=== PATIENT | male | born 1945 | race Caucasian/White ===

== ENCOUNTER 2016-07-26 14:55 | Emergency (ER) | payer MEDICARE, BC ==
[2016-07-26 15:39] VITALS: BP 166/50
[2016-07-26] MEDS ORDERED: Cyclobenzaprine 10 MG Tab PO ONE (15:56)
[2016-07-26] MEDS ORDERED: Acetaminophen 325 MG Tab PO ONE (15:56)
--- NOTE | 2016-07-26 16:12 | EDM.PDOC ---
ED HPI LOWER BACK PAIN/INJURY - General Chief Complaint: Back Pain or Injury Stated Complaint: back pain Time Seen by Provider: 07/26/16 15:34 Source of Information: Reports: Patient History Limitations: Reports: No limitations - History of Present Illness INITIAL COMMENTS - FREE TEXT/NARRATIVE: Patient sent to ER from PT today with intractable back pain. Pt tells me the past three days he has been having worsening back pain and tingling down both legs from proximal thigh down. No numbness. He started PT 5 days ago and today was his second visit. PT was started because of gradually worsening chronic pain but two days after the first PT visit it became significantly worse. Right now in ER he is actually doing much better than 45 minutes ago in PT. He did get E-stim today he says. Patient tells me he has been told he can' t have an MRI because of his bilat hip replacements, coronary artery stents (12 yrs ago), renal artery stents (11 yrs ago) and iliac artery stents (5 yrs ago). PT was thinking he could have a CT. Pt tells me he had lumbar xrays last week in clinic that only saw lots of arthritis and recommended CT if PT didn't help. We talked to the radiologist today who says that most of these modern stents are compatible with MRI and he would much prefer MRI to CT as he can remove the distortion the hip prostheses would affect but they would obscure the CT view of the lumbar and sacral spine. We will check the type of stents the pt has to confirm compatibility. 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 He says the L4/L5 disk was blown out. He has had claudication/ blockage of both legs which was resolved with the iliac stents and only has had tingling in both legs the past couple days along with the worsening back pain. No recent trauma that he can think of except he got "tangled up in the bed sheets" a few days ago. He also had an abdominal aortic aneurysm repair 3-5 years ago but wasn't told anything about avoiding MRI's with that. - Related Data Allergies/ADRs: Allergies Allergy/AdvReac Type Severity Reaction Status Date / Time No Known Drug Allergies Allergy Other Verified 07/26/16 15:16 Home Meds: Home Meds Aspirin [Adult Low Dose Aspirin EC] 81 mg PO DAILY 07/26/16 [History] Atenolol [Atenolol] 25 mg PO DAILY 07/26/16 [History] Clopidogrel Bisulfate [Clopidogrel] 75 mg PO DAILY 07/26/16 [History] Fluticasone/Vilanterol [Breo Ellipta 100-25 MCG Inhalation Kit] 1 puff INH DAILY PRN 07/26/16 [History] Isosorbide Mononitrate [Isosorbide Mononitrate ER] 30 mg PO DAILY 07/26/16 [ History] Pravastatin Sodium [Pravachol] 20 mg PO BEDTIME 07/26/16 [History] Sodium Bicarbonate 325 mg PO DAILY 07/26/16 [History] Vit D3/Folic Acid/B2/B6/B12 [Folgard Tablet] 1 tab PO DAILY 07/26/16 [History] ED ROS GENERAL - Review of Systems Review Of Systems: See Below Constitutional: Denies: fever HEENT: Denies: Vertigo, Vision change Respiratory: Denies: Shortness of Breath, Cough Cardiovascular: Denies: Chest pain, Lightheadedness, Syncope GI/Abdominal: Denies: Abdominal pain, Vomiting : Reports: no symptoms Musculoskeletal: Reports: back pain. Denies: neck pain Skin: Denies: cyanosis, jaundice, mottled, pallor, diaphoresis Neurological: Denies: Confusion, Dizziness, Headache Psychiatric: Denies: Agitation, Anxiety, Confusion Hematologic/Lymphatic: Denies: anemia ED EXAM,LOWER BACK PAIN/INJURY - Physical Exam Exam: See Below Exam Limited By: No limitations General Appearance: alert, WD/WN, no apparent distress Eye Exam: bilateral eye: EOMI, normal inspection, PERRL Ears: normal external exam, hearing grossly normal Nose: normal inspection Throat/Mouth: Normal lips, Normal voice, No airway compromise Head: atraumatic, normocephalic Neck: full range of motion Respiratory/Chest: no respiratory distress, lungs clear, normal breath sounds Cardiovascular: regular rate, rhythm, no murmur GI/Abdominal: soft, no distention Back Exam: muscle spasm, paraspinal tenderness (lumbar and tender at right SI joint). No: vertebral tenderness Extremities: normal range of motion, non-tender, no pedal edema Neurological: alert, normal mood/affect, normal dorsiflexion, normal plantar flexion, normal gait, oriented x 3, other (Sensation to light touch is present in bilat legs throughout but he says it feels "tingly") Psychiatric: normal affect, normal mood Skin Exam: Warm, Dry, Intact, Normal color, No rash Course - Vital Signs Last Recorded V/S: Last Vital Signs Temp 96.6 F 07/26/16 15:38 Pulse 53 L 07/26/16 15:38 Resp 20 07/26/16 15:38 BP 166/50 H 07/26/16 15:38 Pulse Ox 98 07/26/16 15:38 - Orders/Labs/Meds Orders: Active Orders 24 hr Category Date Time Status Acetaminophen [Tylenol] Med 07/26/16 15:56 Once 650 mg PO NOW ONE Cyclobenzaprine [Flexeril] Med 07/26/16 15:56 Once 10 mg PO ONETIME ONE Medication Orders Acetaminophen (Tylenol) 650 mg PO NOW ONE Stop: 07/26/16 15:57 Cyclobenzaprine HCl (Flexeril) 10 mg PO ONETIME ONE Stop: 07/26/16 15:57 Meds: Medications Generic Name Dose Route Start Last Admin Trade Name Freq PRN Reason Stop Dose Admin Acetaminophen 650 mg 07/26/16 15:56 Tylenol PO 07/26/16 15:57 NOW ONE Cyclobenzaprine HCl 10 mg 07/26/16 15:56 Flexeril PO 07/26/16 15:57 ONETIME ONE - Re-Assessments/Exams Free Text/Narrative Re-Assessment/Exam: 07/26/16 17:50 With his significant vascular history, stents and repairs, we gathered all the information on his stents, etc and sent to the MRI center for confirmation of safety to proceed with MRI tomorrow. Patient would like to proceed as well after discussion. We discussed at length his symptoms and diagnostic options. He has stage 3 kidney disease and cannot take NSAIDS. He improved significantly following the Tylenol 650 and FLexeril 10mg. He tries to minimize taking anything for pain and hadn't taken Tylenol since last night. Patient discharged in stable and improved condition and will get MRI tomorrow and follow up with his PCP as scheduled on Sunday. Departure - Departure Time of Disposition: 17:19 Disposition: Home, Self-Care 01 Condition: good Clinical Impression: Lumbar paraspinal muscle spasm, Chronic SI joint pain Instructions: Muscle Strain, [id number], Back Pain, Adult, [id number] Forms: ED Department Discharge Additional Instructions: 1. Take Tylenol 500-650 mg three times daily as needed for pain. 2. Take Flexeril as directed for muscle spasm and pain. 3. Recheck with Dr. Bettencourt on Sunday as schedules or sooner if needed vs ER. 4. We will contact you for your MRI test tomorrow. - My Orders Last 24 Hours: My Active Orders 07/26/16 15:56 Acetaminophen [Tylenol] 650 mg PO NOW ONE Cyclobenzaprine [Flexeril] 10 mg PO ONETIME ONE - Assessment/Plan Last 24 Hours: My Active Orders 07/26/16 15:56 Acetaminophen [Tylenol] 650 mg PO NOW ONE Cyclobenzaprine [Flexeril] 10 mg PO ONETIME ONE
== END 2016-07-26 17:30 | disposition home or self-care (01) ==
LOC: KA.ED 14:55
DX: M62.830 Muscle spasm of back (principal); G89.29 Other chronic pain; M53.3 Sacrococcygeal disorders, not elsewhere classified; Z79.82 Long term (current) use of aspirin
CPT/HCPCS: 99283; A9270

== ENCOUNTER 2016-11-17 20:38 | Emergency (ER) | payer MEDICARE, BC ==
--- NOTE | 2016-11-17 20:58 | EDM.PDOC ---
ED HPI GENERAL MEDICAL PROBLEM - General Chief Complaint: Chest Pain Stated Complaint: CHEST PAIN Time Seen by Provider: 11/17/16 20:43 Source of Information: Reports: Patient History Limitations: Reports: No Limitations - History of Present Illness INITIAL COMMENTS - FREE TEXT/NARRATIVE: Patient presents with left chest and arm pain. The pain is in the left lateral chest from the nipple line around to the mid axilla and the medial left upper arm. No pain in neck or jaw. He's had three similar episodes of this in the last 22 hours. Last night he had just laid down and had the first episode at 1130 last evening. It lasted 15 minutes and went away. He had another episode at 0400 this morning. He got up and walked around and it resolved after about 10 minutes. Today he worked hard most of the day, lifting furniture and working in his garage. At 2000 this evening while sweeping his garage he got the pain again which lasted for 30 minutes. No nausea or diaphoresis. He had an WI and two stents placed in 2005. He says that with that he had no chest pain just sweating. He says he pulled a muscle in his chest on the left side a few weeks ago that has been painful frequently. This pain is the same spot but feels worse. The pain is not sharp, heaviness or pressure. - Related Data Allergies Allergy/AdvReac Type Severity Reaction Status Date / Time No Known Drug Allergies Allergy Other Verified 11/17/16 20:59 Home Meds: Home Meds Aspirin [Adult Low Dose Aspirin EC] 81 mg PO DAILY 07/26/16 [History] Atenolol [Atenolol] 25 mg PO DAILY 07/26/16 [History] Clopidogrel Bisulfate [Clopidogrel] 75 mg PO DAILY 07/26/16 [History] Fluticasone/Vilanterol [Breo Ellipta 100-25 MCG Inhalation Kit] 1 puff INH DAILY PRN 07/26/16 [History] Pravastatin Sodium [Pravachol] 20 mg PO BEDTIME 07/26/16 [History] Sodium Bicarbonate 325 mg PO BID 07/26/16 [History] Vit D3/Folic Acid/B2/B6/B12 [Folgard Tablet] 1 tab PO DAILY 07/26/16 [History] Acetaminophen 500 mg PO Q6HR PRN 11/17/16 [History] Cyclobenzaprine [Flexeril] 10 mg PO Q8HR PRN 11/17/16 [History] Nitroglycerin 0.4 mg SL ASDIRECTED PRN 11/17/16 [History] Non-Formulary Medication [NF Drug] 1 applic TOP QID PRN 11/17/16 [History] Past Medical History HEENT History: Reports: Impaired Vision, Other (See Below) Other HEENT History: injury to left side of face playing football with eye injury Cardiovascular History: Reports: CAD, High Cholesterol, WI, PVD Respiratory History: Reports: COPD Gastrointestinal History: Reports: Chronic Diarrhea Other Gastrointestinal History: states that he has diarrhea from taking a statin Genitourinary History: Reports: Chronic Renal Insuffiency Other Genitourinary History: stage 3 kidney disease Musculoskeletal History: Reports: Arthritis Endocrine/Metabolic History: Reports: Vitamin D Deficiency Hematologic History: Reports: Anesthesia Reaction Other Hematologic History: wakes up from anesthesia violently - Infectious Disease History Infectious Disease History: Reports: Measles, Mononucleosis, Mumps - Past Surgical History HEENT Surgical History: Reports: Eye Surgery, Tonsillectomy Social & Family History - Family History Family Medical History: Noncontributory - Tobacco Use Smoking Status *Q: Current Every Day Smoker Years of Tobacco use: 50 Packs/Tins Daily: 3 - Caffeine Use Caffeine Use: Reports: Coffee, Tea - Alcohol Use Days Per Week of Alcohol Use: 7 Number of Drinks Per Day: 1 Total Drinks Per Week: 7 - Recreational Drug Use Recreational Drug Use: No ED ROS GENERAL - Review of Systems Review Of Systems: See Below Constitutional: Denies: Fever, Chills, Decreased Appetite HEENT: Denies: Throat Pain, Vision Change Respiratory: Denies: Shortness of Breath, Cough Cardiovascular: Reports: Chest Pain. Denies: Lightheadedness, Syncope Endocrine: Denies: Fatigue GI/Abdominal: Denies: Abdominal Pain, Nausea : Denies: Dysuria Musculoskeletal: Denies: Neck Pain, Shoulder Pain, Back Pain Skin: Denies: Cyanosis, Jaundice, Mottled, Pallor, Diaphoresis Neurological: Denies: Confusion, Dizziness, Headache Psychiatric: Denies: Agitation, Anxiety, Confusion Hematologic/Lymphatic: Reports: Easy Bleeding (on Plavix). Denies: Anemia ED EXAM, GENERAL - Physical Exam Exam: See Below Exam Limited By: No Limitations General Appearance: Alert, WD/WN, No Apparent Distress Eye Exam: Bilateral Eye: EOMI, Normal Inspection, PERRL Ears: Normal External Exam, Hearing Grossly Normal Nose: Normal Inspection, No Blood Throat/Mouth: Normal Inspection, Normal Lips, Normal Voice, No Airway Compromise Head: Atraumatic, Normocephalic Neck: Normal Inspection, Supple, Non-Tender, Full Range of Motion Respiratory/Chest: No Respiratory Distress, Lungs Clear, Normal Breath Sounds, No Accessory Muscle Use, Other (Palpation of chest is tender over the left pectorals which is the same region but pain is different than his symptoms he says.) Cardiovascular: Normal Peripheral Pulses, Regular Rate, Rhythm, No Edema, No Murmur GI/Abdominal: Normal Bowel Sounds, Soft, Non-Tender, No Organomegaly Back Exam: Normal Inspection, Full Range of Motion. No: CVA Tenderness (L), CVA Tenderness (R) Extremities: Normal Inspection, Normal Range of Motion, Non-Tender, No Pedal Edema Neurological: Alert, Oriented, Normal Cognition, Normal Gait, No Motor/Sensory Deficits Psychiatric: Normal Affect, Normal Mood Skin Exam: Warm, Dry, Intact, Normal Color, No Rash Course - Orders/Labs/Meds Orders: Active Orders 24 hr Category Date Time Status EKG Documentation Completion [RC] ASDIRECTED Care 11/17/16 20:52 Ordered CXR [Chest 2V] [CR] Stat Exams 11/17/16 20:52 Ordered BASIC METABOLIC PANEL,BMP [CHEM] Stat Lab 11/17/16 20:52 Ordered CBC WITH AUTO DIFF [HEME] Stat Lab 11/17/16 20:52 Ordered TROPONIN I [CHEM] Stat Lab 11/17/16 20:52 Ordered EKG 12 Lead [EK] Routine Ther 11/17/16 20:52 Ordered - Re-Assessments/Exams Free Text/Narrative Re-Assessment/Exam: 11/17/16 21:30 Patient comfortable with no return of chest pain. Waiting on labs. 11/17/16 22:40 Creatinine is 2.04, trop is 0.08, patient hasn't had anymore pain. Discussed this with pt's online program coordinator at [facility] in [place]. She told me that with the creatinine they couldn't cath him if the troponin goes up since they don't have dialysis and would transfer him to [place] at that point. She said he could be sent there with that knowledge or consider keeping here in [place] for serial troponins and medical optimization. Pt would prefer to stay here. I discussed case with Trent Lopezriel who is concerned about his risk factors and NADJA score of 6/7. Decided we better transfer to [place]. Waiting for call back from hospitalist Dr. Kitchen. 11/17/16 22:[address] Kitchen who accepted patient for transfer and wants heparin infused. Discussed this with patient who reluctantly agrees to transfer. Patient is stable since arrival. Departure - Departure Time of Disposition: 23:00 Disposition: DC/Tfer to Acute Hospital 02 Reason for Transfer *Q: Other Condition: Good Clinical Impression: NSTEMI (non-ST elevated myocardial infarction) Chest pain Qualifiers: Chest pain type: chest pain due to myocardial ischemia Ischemic chest pain type : unstable angina pectoris Qualified Code(s): I20.0 - Unstable angina Forms: ED Department Discharge - My Orders Last 24 Hours: My Active Orders 11/17/16 20:52 EKG Documentation Completion [RC] ASDIRECTED CXR [Chest 2V] [CR] Stat BASIC METABOLIC PANEL,BMP [CHEM] Stat CBC WITH AUTO DIFF [HEME] Stat TROPONIN I [CHEM] Stat EKG 12 Lead [EK] Routine - Assessment/Plan Last 24 Hours: My Active Orders 11/17/16 20:52 EKG Documentation Completion [RC] ASDIRECTED CXR [Chest 2V] [CR] Stat BASIC METABOLIC PANEL,BMP [CHEM] Stat CBC WITH AUTO DIFF [HEME] Stat TROPONIN I [CHEM] Stat EKG 12 Lead [EK] Routine
[2016-11-17 20:59] VITALS: BP 166/65
[2016-11-17] MEDS ORDERED: Heparin Sodium 5,000 Units/ML Vial IVPUSH ONE (22:54)
[2016-11-17] MEDS ORDERED: Heparin Sodium/D5W 25,000 UNITS/250 ML BAG IV SCH (23:00)
== END 2016-11-17 23:50 ==
LOC: KA.ED 20:38
DX: I21.4 Non-ST elevation (NSTEMI) myocardial infarction (principal); I20.0 Unstable angina; I25.2 Old myocardial infarction; N18.9 Chronic kidney disease, unspecified; E78.00 Pure hypercholesterolemia, unspecified; J44.9 Chronic obstructive pulmonary disease, unspecified; F17.210 Nicotine dependence, cigarettes, uncomplicated; Z98.890 Other specified postprocedural states; Z79.82 Long term (current) use of aspirin; Z79.02 Long term (current) use of antithrombotics/antiplatelets; Z79.899 Other long term (current) drug therapy
CPT/HCPCS: 36415; 71020; 80048; 84484; 85025; 85610; 85730; 93005; 96365; 99285; J1644; 96366; 99284

== ENCOUNTER 2018-10-29 09:00 | Day surgery (SDC) | payer MEDICARE, BC ==
[~2018-10-29 09:00] MED LIST: Bupivacaine 0.5%/EPINEPHrine 1:200,000 30 ML SDV ONE; Sodium Chloride 0.9% 10 ML Syringe FLUSH PRN; ceFAZolin 1 GM Vial ONE
[2018-10-29] MEDS ORDERED: fentaNYL 100 MCG/2 ML SDV ONE (09:20)
[2018-10-29] MEDS ORDERED: Ketamine 200 MG/20 ML MDV ONE (09:20)
[2018-10-29] MEDS ORDERED: Propofol 200 MG/20 ML SDV ONE ×2 (09:20→11:02)
[2018-10-29] MEDS ORDERED: ceFAZolin 1 GM Vial ONE (09:21)
[2018-10-29] MEDS: Lactated Ringers 1,000 ML IV SCH (09:30)
--- NOTE | 2018-10-29 09:34 | CR ---
[id number] RAD/RAD Chest PA And Lateral EXAM: RAD Chest PA And Lateral INDICATION: COPD. COMPARISON: November 2016. DISCUSSION: Cardiomediastinal silhouette is normal in size and contour. No infiltrate, effusion, pneumothorax, or edema. IMPRESSION: Negative examination of the chest. Isaac Armstrong MD 10/29/18 0931 Thank you for allowing us to participate in the care of your patient.
[2018-10-29] MEDS: Albuterol/Ipratropium 3.0-0.5 MG/3 ML Neb Soln NEB ONE (10:00)
[2018-10-29] MEDS ORDERED: Bacitracin/Neomycin/Polymyxin B Oint 0.9 GM U/D Packet ONE (10:00)
--- NOTE | 2018-10-29 10:07 | PCM.PN ---
- General Info Date of Service: 10/29/18 - Review of Systems Systems Review Comment:: 73 y/o male here for right inguinal hernia repair. Site of hernia confirmed with the patient and marked. Proposed procedure again discussed with the patient. Instructions and expectations reviewed. CXR from today reviewed and interpreted as being normal without infiltrate. Questions discussed and answered. Patient agrees to proceed accepting risks. - Patient Data Vitals - Most Recent: Last Vital Signs Temp 97.4 F 10/29/18 09:44 Pulse 58 L 10/29/18 09:44 Resp 16 10/29/18 09:44 BP 165/72 H 10/29/18 09:44 Pulse Ox 98 10/29/18 09:44 Weight - Most Recent: 81.193 kg Med Orders - Current: Current Medications Lactated Ringer's (Ringers, Lactated) 1,000 mls @ 30 mls/hr IV ASDIRECTED ALFREDO Last Admin: 10/29/18 09:30 Dose: 30 mls/hr Sodium Chloride (Saline Flush) 10 ml FLUSH Q8HR PRN PRN Reason: keep vein open Discontinued Medications Albuterol/Ipratropium (Duoneb 3.0-0.5 Mg/3 Ml) 3 ml NEB ONETIME ONE Stop: 10/29/18 09:01 Bupivacaine HCl/Epinephrine Bitart (Marcaine 0.5%/Epinephrine 1:200,000) Confirm Administered Dose 30 ml .ROUTE .STK-MED ONE Stop: 10/29/18 08:37 Cefazolin Sodium (Ancef) Confirm Administered Dose 1 gm .ROUTE .STK-MED ONE Stop: 10/29/18 08:36 - Problem List Review Problem List Initiated/Reviewed/Updated: Yes - My Orders Last 24 Hours: My Active Orders 10/28/18 10:17 Resuscitation Status Routine 10/29/18 09:00 Antiembolic Devices [RC] PER UNIT ROUTINE Patient to Empty Bladder [RC] ASDIRECTED Peripheral IV Care [RC] . DIRECTED RT Aerosol Therapy [RC] ASDIRECTED Verify Patient Consent Obtain [RC] ASDIRECTED Vital Signs [RC] PER UNIT ROUTINE Lactated Ringers [Ringers, Lactated] 1,000 ml IV ASDIRECTED Sodium Chloride 0.9% [Saline Flush] 10 ml FLUSH Q8HR PRN Peripheral IV Insertion Adult [OM.PC] Routine Sequential Compression Device [OM.PC] Routine - Assessment Assessment:: Right Inguinal Hernia - Plan Plan:: Right Inguinal Hernia repair with mesh
[2018-10-29] MEDS ORDERED: Ketamine 200 MG/20 ML MDV IV ONE (10:27)
[2018-10-29] MEDS ORDERED: Propofol 200 MG/20 ML SDV IV ONE (10:27)
[2018-10-29] MEDS ORDERED: ceFAZolin 1 GM Vial IV ONE (10:27)
[2018-10-29] MEDS ORDERED: fentaNYL 100 MCG/2 ML SDV IV ONE (10:27)
[2018-10-29] MEDS ORDERED: Lidocaine 1% 20 ML MDV INJECT ONE (11:00)
[2018-10-29] MEDS: Bupivacaine 0.5%/EPINEPHrine 1:200,000 30 ML SDV INFILT ONE ×2 (11:21)
[2018-10-29] MEDS: ceFAZolin 1 GM Vial ONE (11:21)
[2018-10-29] MEDS: Sodium Chloride 0.9% 20 ML SDV ONE (11:22)
[2018-10-29] MEDS: Lidocaine 1% 10 ML MDV INFILT ONE ×2 (11:42)
[2018-10-29] MEDS: Bacitracin/Neomycin/Polymyxin B Oint 0.9 GM U/D Packet TOP ONE (11:42)
--- NOTE | 2018-10-29 12:34 | PCM.OPNOTE ---
- General Post-Op/Procedure Note Date of Surgery/Procedure: 10/29/18 Operative Procedure(s): Repair right inguinal hernia with mesh Findings: Large Direct and Small Indirect right inguinal hernia Pre Op Diagnosis: Right Inguinal Hernia Post-Op Diagnosis: Same Anesthesia Technique: Local, MAC Primary Surgeon: Trae Grewal Pathology: Hernia sac and cord lipoma Output, Urine Amount: 0 EBL in mLs: 25 Complications: None Condition: Good
[2018-10-29] MEDS: oxyCODONE 5 MG Tab PO ONE (13:27)
--- NOTE | 2018-10-29 13:49 | OR ---
DATE OF SURGERY: 10/29/2018 SURGEON: Trae Grewal MD PREOPERATIVE DIAGNOSIS: Right inguinal hernia. POSTOPERATIVE DIAGNOSIS: Right direct and indirect inguinal hernias. OPERATION PERFORMED: Repair of right inguinal hernia with mesh. INDICATIONS FOR SURGERY: This 73-year-old male has developed a painful bulge in the right groin. This is increasingly symptomatic for him. Physical findings are consistent with an inguinal hernia and he comes for elective repair. FINDINGS: In the right groin, the patient has a large direct inguinal hernia. The floor of the inguinal canal is almost totally disrupted with a large amount of preperitoneal fat protruding through the Hesselbach's triangle. Also, there is a small indirect component of the hernia noted near the internal ring. The spermatic cord is otherwise unremarkable. DESCRIPTION OF PROCEDURE: The patient was taken to the operating room. He is given intravenous sedation and the right groin is sterilely prepped with Betadine and draped. The right groin area is infiltrated with a xylocaine and Marcaine mix and after good analgesia had been achieved, a linear right groin incision was made, which was carried down to the external oblique fascia. The external oblique fascia was opened exposing the inguinal canal. The cord structures were carefully isolated from the adjacent tissue and hernia sac. The ilioinguinal nerve is identified and carefully preserved. The direct hernia is identified and the hernia tissue is able to be reduced and then held in the reduced position with a running 3-0 Vicryl. Additional exploration identified a small cord lipoma which was removed with cautery and the indirect hernia sac which is isolated down to the level of the internal ring. It is opened, found to be empty and then the indirect sac is suture ligated with a 2-0 Vicryl and then a reinforcing 2-0 Vicryl tie is placed at the level of the internal ring. The excess sac is amputated. The floor of the inguinal canal is then reinforced by placing a large size keyhole shaped piece of polypropylene mesh into position and securing it into position with interrupted 0 Nurolon and interrupted number one prolene sutures. The medial edge of the mesh is secured to the pubic tubercle. The inferior edge of the mesh is secured down to the Estevan's ligament medial to the femoral vessels and the shelving portion of the inguinal ligament anterior to these vessels. The superior edge of the mesh is secured to the internal oblique fascia near its fusion with the external oblique fascia. The ilioinguinal nerve and spermatic cord were passed through the keyhole defect and the tails of the mesh are secured laterally to each other with interrupted number one Prolene, recreating the internal ring. This was created to admit one fingertip alongside the spermatic cord. The tails of the mesh were trimmed and then laid into the space lateral to the internal ring between the internal and external oblique fascia. This created a secure reinforcement of the floor of the inguinal canal. The wound was copiously irrigated with Ancef in saline solution, which had also been used to soak the mesh. The external oblique fascia is then reapproximated with a running 2-0 Vicryl. Additional local anesthesia is administered to assist in postoperative pain control. Gumaro's fascia was approximated with an interrupted 4-0 Vicryl and the skin was closed with a running 4-0 Vicryl subcuticular stitch. Steri-Strips and benzoin were applied. Antibiotic ointment and a sterile dressing were placed. The patient was then taken from the operating room in satisfactory condition. ESTIMATED BLOOD LOSS: 25 mL. COMPLICATIONS: None. PROGNOSIS: Good. /[id number]/MODL
[2018-10-29 14:25] VITALS: BP 139/63
== END 2018-10-29 14:15 | disposition home or self-care (01) ==
LOC: KA.SDS 09:00
PROVIDERS: ATTEND Surgery
DX: K40.90 Unilateral inguinal hernia, without obstruction or gangrene, not specified as recurrent (principal); D17.6 Benign lipomatous neoplasm of spermatic cord; J44.9 Chronic obstructive pulmonary disease, unspecified; I73.9 Peripheral vascular disease, unspecified; N25.81 Secondary hyperparathyroidism of renal origin; I12.9 Hypertensive chronic kidney disease with stage 1 through stage 4 chronic kidney disease, or unspecified chronic kidney disease; N18.4 Chronic kidney disease, stage 4 (severe); D50.9 Iron deficiency anemia, unspecified; K21.9 Gastro-esophageal reflux disease without esophagitis; E66.3 Overweight; I25.10 Atherosclerotic heart disease of native coronary artery without angina pectoris; Z95.828 Presence of other vascular implants and grafts; Z79.899 Other long term (current) drug therapy; Z79.891 Long term (current) use of opiate analgesic; Z79.02 Long term (current) use of antithrombotics/antiplatelets; Z79.82 Long term (current) use of aspirin; Z88.8 Allergy status to other drugs, medicaments and biological substances
CPT/HCPCS: 00830; 71046; 94640; A9270-GY; C1781; J0690; J2001; J2704; J3010; J3490; J7120; J7620-GY

== ENCOUNTER 2021-01-06 22:13 | Observation (INO) | payer MEDICARE, BC ==
[2021-01-06] MEDS ORDERED: Sodium Chloride 0.9% 10 ML Syringe FLUSH PRN (23:10)
[2021-01-06] MEDS ORDERED: Sodium Chloride 0.9% 1,000 ML IV ONE (23:16)
--- NOTE | 2021-01-06 23:19 | EDM.PDOC ---
ED HPI GENERAL MEDICAL PROBLEM - General Chief Complaint: General Stated Complaint: pain, aches Time Seen by Provider: 01/06/21 22:54 Source of Information: Reports: Patient, Significant Other History Limitations: Reports: No Limitations - History of Present Illness INITIAL COMMENTS - FREE TEXT/NARRATIVE: Patient presents with general weakness and achy back and legs. He couldn't get out of his recliner this evening. He tried for 30 minutes then called ambulance. He has been sleeping a lot lately and hasn't drank much water. He says he's had some shortness of breath and pain across middle upper abdomen. He's really vague on when this started but mostly the last couple days, except the cough for two weeks. He had the third (booster) covid vaccine yesterday. He takes oxycodone on a pain contract for arthritis in his back. He also has PAD affecting his legs. Generalized Pain Score (Numeric/FACES): 10 - Related Data Allergies Allergy/AdvReac Type Severity Reaction Status Date / Time atorvastatin Allergy Diarrhea Verified 01/06/21 22:58 leuprolide [From Lupron] Allergy Itching Verified 01/06/21 22:58 Home Meds: Home Meds Aspirin [Adult Low Dose Aspirin EC] 81 mg PO DAILY 07/26/16 [History] Clopidogrel Bisulfate [Clopidogrel] 75 mg PO DAILY 07/26/16 [History] Sodium Bicarbonate 325 mg PO DAILY 07/26/16 [History] atenoloL [Atenolol] 25 mg PO DAILY 07/26/16 [History] Acetaminophen 1,000 mg PO Q6HR PRN 11/17/16 [History] Nitroglycerin 0.4 mg SL ASDIRECTED PRN 11/17/16 [History] Non-Formulary Medication [NF Drug] 1 applic TOP QID PRN 11/17/16 [History] Calcium Carbonate [Calcium Antacid] 200 mg PO ASDIRECTED PRN 10/08/18 [History] Calcium Citrate/Vitamin D3 [Calcium Cit-Vit D 315-200] 1 each PO BIDMEALS 10/08/18 [History] Mesal/Menth/Camph/[place] Fir [Vicks Vapoinhaler] 1 each NS ASDIRECTED PRN 10/08/18 [History] hydrOXYzine HCL [hydrOXYzine] 25 mg PO QID PRN 10/08/18 [History] oxyCODONE 5 mg PO BID PRN 10/08/18 [History] Fluticasone Propionate [Flonase] 2 sprays NS BID PRN 09/15/19 [History] Leuprolide [Lupron Depot 1-Month] 7.5 mg IM Q30D 09/15/19 [History] Pravastatin [Pravachol] 10 mg PO DAILY 09/15/19 [History] Sertraline [Zoloft] 25 mg PO DAILY 09/15/19 [History] diphenhydrAMINE [Benadryl] 25 - 50 mg PO Q4H PRN 09/15/19 [History] Diphenoxylate HCl/Atropine [Lomotil] 1 - 2 tab PO QID PRN 01/14/20 [History] Hydrocortisone [Proctozone-HC 2.5% Crm] 1 applic TOP BID PRN 01/14/20 [History] Loperamide HCl [Imodium A-D] 1 tab PO ASDIRECTED PRN 01/14/20 [History] Tbo-Filgrastim [Granix] 480 mcg SQ MO 01/14/20 [History] Darbepoetin Dillan in Polysorbat [Aranesp] 40 mcg IJ ASDIRECTED 12/09/20 [History] Past Medical History HEENT History: Reports: Allergic Rhinitis, Epistaxis, Hard of Hearing, Impaired Vision, Sinusitis, Other (See Below) Other HEENT History: injury to left side of face playing football with eye injury Cardiovascular History: Reports: Angina, CAD, High Cholesterol, Hypertension, [place], PVD, Other (See Below) Other Cardiovascular History: PVD Respiratory History: Reports: COPD, Pneumonia, Recurrent Gastrointestinal History: Reports: Chronic Diarrhea, Diverticulosis, Gastritis, GERD Other Gastrointestinal History: states that he has diarrhea from taking a statin Genitourinary History: Reports: Chronic Renal Insuffiency, Prostate Disorder Other Genitourinary History: stage 3 kidney disease Musculoskeletal History: Reports: Arthritis, Back Pain, Chronic, Fracture, Osteoarthritis Neurological History: Reports: Head Trauma, Migraines Psychiatric History: Reports: Addiction, Depression Endocrine/Metabolic History: Reports: Vitamin D Deficiency Hematologic History: Reports: Anesthesia Reaction, B12 Deficiency, Blood Transfusion(s) Other Hematologic History: wakes up from anesthesia violently Immunologic History: Reports: Immunosuppression Oncologic (Cancer) History: Reports: Prostate - Infectious Disease History Infectious Disease History: Reports: Chicken Pox, Measles, Mumps - Past Surgical History Head Surgeries/Procedures: Reports: None HEENT Surgical History: Reports: Eye Surgery, Tonsillectomy Cardiovascular Surgical History: Reports: AAA Repair, Carotid Stents, Coronary Artery Bypass, Other (See Below) Other Cardiovascular Surgeries/Procedures: 4 stents to right iliac artery, 2 stents to left iliac artery GI Surgical History: Reports: Hernia, Inguinal Male Surgical History: Reports: Other (See Below) Other Male Surgeries/Procedures: stents to renal artery bilateral Neurological Surgical History: Reports: None Musculoskeletal Surgical History: Reports: Hip Replacement Dermatological Surgical History: Reports: None Social & Family History - Family History Family Medical History: No Pertinent Family History - Caffeine Use Caffeine Use: Reports: Coffee, Tea ED ROS GENERAL - Review of Systems Review Of Systems: See Below Constitutional: Reports: Malaise, Weakness, Fatigue. Denies: Fever HEENT: Denies: Ear Pain, Throat Pain, Vision Change Respiratory: Reports: Shortness of Breath, Cough Cardiovascular: Denies: Chest Pain Endocrine: Reports: Fatigue GI/Abdominal: Denies: Constipation, Diarrhea, Vomiting : Denies: Flank Pain Musculoskeletal: Reports: Back Pain, Leg Pain. Denies: Neck Pain, Shoulder Pain Skin: Denies: Cyanosis, Jaundice, Mottled Neurological: Reports: Weakness. Denies: Trouble Speaking Psychiatric: Denies: Agitation, Anxiety Hematologic/Lymphatic: Reports: Easy Bleeding (on aspirin and Plavix) ED EXAM, GENERAL - Physical Exam Exam: See Below Exam Limited By: No Limitations General Appearance: Alert, WD/WN, No Apparent Distress Eye Exam: Bilateral Eye: EOMI, Normal Inspection, PERRL Ears: Normal External Exam, Hearing Grossly Normal Nose: Normal Inspection, No Blood Throat/Mouth: Normal Inspection, Normal Lips, Normal Voice, No Airway Compromise Head: Atraumatic, Normocephalic Neck: Normal Inspection, Full Range of Motion Respiratory/Chest: Decreased Breath Sounds (throughout), Crackles (slight), Rhonchi (transient), Wheezing (slight) Cardiovascular: No Edema, Other (pulse regular but in groups of 2 then short pause) Peripheral Pulses: 2+: Radial (L), Radial (R) GI/Abdominal: Normal Bowel Sounds, Non-Tender, No Organomegaly, Distended (mild). No: Guarding, Rigid Back Exam: Normal Inspection, Full Range of Motion. No: CVA Tenderness (L), CVA Tenderness (R) Extremities: Normal Inspection, Normal Range of Motion, Non-Tender, No Pedal Edema. No: Cara's Sign Neurological: Alert, Oriented, Normal Cognition, No Motor/Sensory Deficits Psychiatric: Normal Affect, Normal Mood Skin Exam: Warm, Dry, Intact, No Rash, Pallor (mild) Course - Vital Signs Last Recorded V/S: Last Vital Signs Temp 99.9 F 01/07/21 00:22 Pulse 104 H 01/06/21 23:45 Resp 24 H 01/06/21 23:45 BP 135/81 01/06/21 23:45 Pulse Ox 95 01/06/21 23:45 - Orders/Labs/Meds Orders: Active Orders 24 hr Category Date Time Status Peripheral IV Care [RC] . DIRECTED Care 01/06/21 23:10 Active Chest 1V Frontal [CR] Stat Exams 01/06/21 23:11 Ordered Sodium Chloride 0.9% [Saline Flush] Med 01/06/21 23:10 Active 10 ml FLUSH Q8HR PRN Peripheral IV Insertion Adult [OM.PC] Routine Oth 01/06/21 23:10 Ordered EKG 12 Lead [EK] Stat Ther 01/06/21 22:34 Ordered EKG 12 Lead [EK] Stat Ther 01/07/21 01:08 Ordered Medication Orders Sodium Chloride (Sodium Chloride 0.9% 10 Ml Syringe) 10 ml FLUSH Q8HR PRN PRN Reason: keep vein open Last Admin: 01/06/21 23:20 Dose: 10 ml Documented by: DIANNE Labs: Laboratory Tests 01/06/21 01/06/21 01/06/21 Range/Units 23:20 23:20 23:20 WBC 2.91 L (5.00-10.00) 10^3/uL RBC 2.48 L (4.50-6.00) 10^6/uL Hgb 8.7 L (13.0-17.0) g/dL Hct 26.9 L (40.0-52.0) % MCV 108.5 H D (82.0-92.0) fL MCH 35.1 H (27.0-31.0) pg MCHC 32.3 (32.0-36.0) g/dL RDW 13.9 (11.5-14.5) % Plt Count 187 (150-400) 10^3/uL MPV 9.3 (7.4-10.4) fL Immature Gran % (Auto) Sheet Metal Insulator Neut % (Auto) Sheet Metal Insulator Lymph % (Auto) Sheet Metal Insulator [place] % (Auto) Sheet Metal Insulator Eos % (Auto) Sheet Metal Insulator Baso % (Auto) Sheet Metal Insulator Neut # (Auto) Sheet Metal Insulator Lymph # (Auto) Sheet Metal Insulator [place] # (Auto) Sheet Metal Insulator Eos # (Auto) Sheet Metal Insulator Baso # (Auto) Sheet Metal Insulator Immature Gran # (Auto) Sheet Metal Insulator Add Manual Diff Yes Neutrophils % (Manual) 65 (50-70) % Band Neutrophils % 5 (4-12) % Lymphocytes % (Manual) 8 L (20-40) % Atypical Lymphs % 2 Monocytes % (Manual) 20 H (2-8) % Eosinophils % (Manual) 0 L (1-3) % Basophils % (Manual) 0 (0-1) % Platelet Estimate Adequate Anisocytosis 1+ slight Macrocytosis 1+ slight D-Dimer, Quantitative 1200 H (<400) ng/mL Sodium 137 (136-145) mmol/L Potassium 4.2 (3.5-5.1) mmol/L Chloride 100 (98-107) mmol/L Carbon Dioxide 23.1 (21.0-32.0) mmol/L Anion Gap 18.1 H (5-15) mmol/L BUN 30 H (7-18) mg/dL Creatinine 2.49 H (0.51-1.17) mg/dL Est Cr Clr Drug Dosing 25.18 mL/min Estimated GFR (MDRD) 25 mL/min Glucose 100 (70-140) mg/dL Calcium 8.6 L (8.7-10.3) mg/dL Magnesium (1.8-2.4) mg/dL Troponin I High Sens 105.200 H* (0-76.000) pg/mL B-Natriuretic Peptide (0-100) pg/mL 01/06/21 01/06/21 Range/Units 23:20 23:20 WBC (5.00-10.00) 10^3/uL RBC (4.50-6.00) 10^6/uL Hgb (13.0-17.0) g/dL Hct (40.0-52.0) % MCV (82.0-92.0) fL MCH (27.0-31.0) pg MCHC (32.0-36.0) g/dL RDW (11.5-14.5) % Plt Count (150-400) 10^3/uL MPV (7.4-10.4) fL Immature Gran % (Auto) Neut % (Auto) Lymph % (Auto) [place] % (Auto) Eos % (Auto) Baso % (Auto) Neut # (Auto) Lymph # (Auto) [place] # (Auto) Eos # (Auto) Baso # (Auto) Immature Gran # (Auto) Add Manual Diff Neutrophils % (Manual) (50-70) % Band Neutrophils % (4-12) % Lymphocytes % (Manual) (20-40) % Atypical Lymphs % Monocytes % (Manual) (2-8) % Eosinophils % (Manual) (1-3) % Basophils % (Manual) (0-1) % Platelet Estimate Anisocytosis Macrocytosis D-Dimer, Quantitative (<400) ng/mL Sodium (136-145) mmol/L Potassium (3.5-5.1) mmol/L Chloride (98-107) mmol/L Carbon Dioxide (21.0-32.0) mmol/L Anion Gap (5-15) mmol/L BUN (7-18) mg/dL Creatinine (0.51-1.17) mg/dL Est Cr Clr Drug Dosing mL/min Estimated GFR (MDRD) mL/min Glucose (70-140) mg/dL Calcium (8.7-10.3) mg/dL Magnesium 1.6 L (1.8-2.4) mg/dL Troponin I High Sens (0-76.000) pg/mL B-Natriuretic Peptide 539 H (0-100) pg/mL Meds: Medications Generic Name Dose Route Start Last Admin Trade Name Freq PRN Reason Stop Dose Admin Sodium Chloride 10 ml 01/06/21 23:10 01/06/21 23:20 Sodium Chloride 0.9% 10 Ml Syringe FLUSH 10 ml Q8HR PRN Administration keep vein open Discontinued Medications Generic Name Dose Route Start Last Admin Trade Name Freq PRN Reason Stop Dose Admin Heparin Sodium (Porcine) 5,000 units 01/07/21 01:09 01/07/21 01:19 Heparin Sodium 5,000 Units/Ml Vial IVPUSH 01/07/21 01:10 5,000 units ONETIME ONE Administration Sodium Chloride 1,000 mls @ 999 mls/hr 01/06/21 23:16 01/06/21 23:36 Normal Saline IV 01/07/21 00:16 999 mls/hr .BOLUS ONE Administration Oxycodone HCl 5 mg 01/06/21 23:45 01/06/21 23:48 Oxycodone 5 Mg Tab PO 01/06/21 23:46 5 mg ONETIME ONE Administration - Re-Assessments/Exams Free Text/Narrative Re-Assessment/Exam: 01/06/21 23:49 Patient is getting a little impatient while waiting for labs, wants to leave. He seems very stable, but wants something for his back pain; he hasn't had his oxycodone since 1500 today. Will give a dose now. I discussed the EKG showing trigeminy, with Kristi Barnard who isn't concerned about that. CBC has mostly low numbers, which have been that way following his chemo they tell me. 01/07/21 00:32 Troponin is 105, D-dimer is 1200, BNP is 539, Creatinine is 2.49, Hemoglobin is 8.7. I discussed findings with patient and his and he agreed to go to [place]. I called [facility] but they can't take him. I called and they can't take immediately but hopefully in next 12 hours; he will be at top of list. Discussed case with Dr. Shaikh who says they would do cath within 24 hours and wants heparin going here. I discussed recommendations with patient and his but patient is insisting on going home. His is exasperated with him and refuses to take him home. 01/07/21 01:16 We discussed all the risks of blood clots in lungs and heart attack, and recommendations with the patient. His called their daughter who talked with patient on the phone but for nearly an hour couldn't convince him to stay and accept treatment; but his won't take him home either. Patient repeatedly tried to get up and walk but is too weak and tried to move the bed but brakes are locked. Finally I pulled up Kristi on the screen and Dr. Barnard tried to convince patient of the importance of getting treatment but he is refusing. I talked to him again and his says she is leaving and won't take him home. He finally said "yes" to staying for treatment. We will get another EKG and a chest CT to ruleout PE. Giving heparin bolus now and will start the drip after the CT. 01/07/21 01:29 I discussed case with Trent Watts NP who accepted for observation until calls to take him to [place] which will likely be around 1100. 01/07/21 01:43 I cancelled the contrast CT due to kidney function. Heparin bolus is in and will run heparin drip per Non-stemi protocol. Patient feeling okay and appears stable. Departure - Departure Time of Disposition: 01:31 Disposition: Refer to Observation Condition: Good Clinical Impression: Non-STEMI (non-ST elevated myocardial infarction), Elevated troponin, Elevated d-dimer - Discharge Information Referrals: Veronica Judd MD [Primary Care Provider] - Forms: ED Department Discharge Sepsis Event Note (ED) - Evaluation Sepsis Screening Result: Possible Sepsis Risk - Focused Exam Vital Signs: Vital Signs Temp Pulse Resp BP Pulse Ox 01/07/21 00:22 99.9 F 01/06/21 23:45 104 H 24 H 135/81 95 01/06/21 23:33 95 20 132/52 L 92 L 01/06/21 23:16 101 H 13 107/63 93 L 01/06/21 23:02 97 17 132/67 94 L 01/06/21 22:48 105 H 15 122/58 L 98 01/06/21 22:34 95 17 109/68 94 L 01/06/21 22:20 99.4 F 92 29 H 100/46 L 91 L - My Orders Last 24 Hours: My Active Orders 01/06/21 22:34 EKG 12 Lead [EK] Stat 01/06/21 23:10 Peripheral IV Care [RC] . DIRECTED Sodium Chloride 0.9% [Saline Flush] 10 ml FLUSH Q8HR PRN Peripheral IV Insertion Adult [OM.PC] Routine 01/06/21 23:11 Chest 1V Frontal [CR] Stat 01/07/21 01:08 EKG 12 Lead [EK] Stat - Assessment/Plan Last 24 Hours: My Active Orders 01/06/21 22:34 EKG 12 Lead [EK] Stat 01/06/21 23:10 Peripheral IV Care [RC] . DIRECTED Sodium Chloride 0.9% [Saline Flush] 10 ml FLUSH Q8HR PRN Peripheral IV Insertion Adult [OM.PC] Routine 01/06/21 23:11 Chest 1V Frontal [CR] Stat 01/07/21 01:08 EKG 12 Lead [EK] Stat
[2021-01-06] MEDS ORDERED: oxyCODONE 5 MG Tab PO ONE (23:45)
[2021-01-06 23:48] LABS: ANION GAP 18.1 mmol/L (5-15)
[2021-01-07] MEDS ORDERED: Heparin Sodium 5,000 Units/ML Vial IVPUSH ONE (01:09)
[2021-01-07] MEDS ORDERED: Heparin Sodium/D5W 250 ML IV SCH ×2 (01:45→17:45)
[2021-01-07] MEDS ORDERED: Sodium Chloride 0.9% 50 ML IV SCH (02:15)
[2021-01-07] MEDS ORDERED: Acetaminophen 325 MG Tab PO PRN (04:51)
--- NOTE | 2021-01-07 07:40 | CR ---
[id number] RAD/RAD Chest Portable EXAM: PORTABLE CHEST RADIOGRAPH. INDICATION: COUGH COMPARISON: CORRELATION IS MADE WITH OCTOBER 29, 2018 FINDINGS: The lungs are clear but hyperaerated The cardiomediastinal contour is enlarged but stable IMPRESSION: AIRWAY DISEASE Reji Sheridan MD 01/07/21 0739 Thank you for allowing us to participate in the care of your patient.
[2021-01-07] MEDS ORDERED: Nitroglycerin 0.4 MG Tab.SL SL PRN (08:06)
[2021-01-07] MEDS ORDERED: Fluticasone Propionate Nasal Spray 16 GM Bottle NASBOTH PRN (08:06)
[2021-01-07] MEDS ORDERED: Non-Formulary Medication 1 Each TOP PRN (08:06)
[2021-01-07] MEDS ORDERED: Sodium Bicarbonate 650 MG Tab PO SCH (09:00)
[2021-01-07] MEDS ORDERED: Polyethylene Glycol 3350 Powder 17 GM Packet PO SCH (09:00)
[2021-01-07] MEDS ORDERED: DULoxetine 30 MG Cap PO SCH (09:00)
[2021-01-07] MEDS ORDERED: Ferrous Sulfate 325 MG Tab PO SCH (09:00)
[2021-01-07] MEDS ORDERED: Atenolol 25 MG Tab PO SCH (09:00)
--- NOTE | 2021-01-07 10:07 | PCM.HP.2 ---
H&P History of Present Illness - General Date of Service: 01/07/21 Admit Problem/Dx: Admission Diagnosis/Problem Admission Diagnosis/Problem NSTEMI, initial episode of care Source of Information: Patient, Old Records, Provider, RN History Limitations: Reports: No Limitations Generalized Pain Score (Numeric/FACES): 4 - Related Data Allergies/Adverse Reactions: Allergies Allergy/AdvReac Type Severity Reaction Status Date / Time atorvastatin Allergy Diarrhea Verified 01/06/21 22:58 leuprolide [From Lupron] Allergy Itching Verified 01/06/21 22:58 Home Medications: Home Meds Aspirin [Adult Low Dose Aspirin EC] 81 mg PO DAILY 07/26/16 [History] Clopidogrel Bisulfate [Clopidogrel] 75 mg PO DAILY 07/26/16 [History] Sodium Bicarbonate 325 mg PO DAILY 07/26/16 [History] atenoloL [Atenolol] 25 mg PO DAILY 07/26/16 [History] Acetaminophen 1,000 mg PO TID 11/17/16 [History] Nitroglycerin 0.4 mg SL ASDIRECTED PRN 11/17/16 [History] Non-Formulary Medication [NF Drug] 1 applic TOP QID PRN 11/17/16 [History] Calcium Carbonate [Calcium Antacid] 200 mg PO ASDIRECTED PRN 10/08/18 [History] Mesal/Menth/Camph/Siberian Fir [Vicks Vapoinhaler] 1 each NS ASDIRECTED PRN 10/08/18 [History] oxyCODONE 5 mg PO BID PRN 10/08/18 [History] Fluticasone Propionate [Flonase] 2 sprays NS BID PRN 09/15/19 [History] Pravastatin [Pravachol] 10 mg PO BEDTIME 09/15/19 [History] diphenhydrAMINE [Benadryl] 25 - 50 mg PO BID 09/15/19 [History] Hydrocortisone [Proctozone-HC 2.5% Crm] 1 applic TOP BID PRN 01/14/20 [History] Calcium Carbonate/Vitamin D3 [Calcium 500 + Vit D 400] 1 each PO BID 01/07/21 [History] Ceramides 1,3,6-II [Cerave Moisturizing] 1 applic TP DAILY 01/07/21 [History] DULoxetine [Cymbalta] 60 mg PO DAILY 01/07/21 [History] Ferrous Sulfate [Iron] 325 mg PO DAILY 01/07/21 [History] metroNIDAZOLE [Metronidazole] 1 applic TP DAILY 01/07/21 [History] polyethylene glycoL 3350 [MiraLAX] 17 gm PO DAILY 01/07/21 [History] Past Medical History HEENT History: Reports: Allergic Rhinitis, Epistaxis, Hard of Hearing, Impaired Vision, Sinusitis, Other (See Below) Other HEENT History: injury to left side of face playing football with eye injury Cardiovascular History: Reports: Angina, CAD, High Cholesterol, Hypertension, [place], PVD, Other (See Below) Other Cardiovascular History: PVD Respiratory History: Reports: COPD, Pneumonia, Recurrent Gastrointestinal History: Reports: Chronic Diarrhea, Diverticulosis, Gastritis, GERD Other Gastrointestinal History: states that he has diarrhea from taking a statin Genitourinary History: Reports: Chronic Renal Insuffiency, Prostate Disorder Other Genitourinary History: stage 3 kidney disease Musculoskeletal History: Reports: Arthritis, Back Pain, Chronic, Fracture, Osteoarthritis Neurological History: Reports: Head Trauma, Migraines Psychiatric History: Reports: Addiction, Depression Endocrine/Metabolic History: Reports: Vitamin D Deficiency Hematologic History: Reports: Anesthesia Reaction, B12 Deficiency, Blood Transfusion(s) Other Hematologic History: wakes up from anesthesia violently Immunologic History: Reports: Immunosuppression Oncologic (Cancer) History: Reports: Prostate - Infectious Disease History Infectious Disease History: Reports: Chicken Pox, Measles, Mumps - Past Surgical History Head Surgeries/Procedures: Reports: None HEENT Surgical History: Reports: Eye Surgery, Tonsillectomy Cardiovascular Surgical History: Reports: AAA Repair, Carotid Stents, Coronary Artery Bypass, Other (See Below) Other Cardiovascular Surgeries/Procedures: 4 stents to right iliac artery, 2 stents to left iliac artery GI Surgical History: Reports: Hernia, Inguinal Male Surgical History: Reports: Other (See Below) Other Male Surgeries/Procedures: stents to renal artery bilateral Neurological Surgical History: Reports: None Musculoskeletal Surgical History: Reports: Hip Replacement Other Musculoskeletal Surgeries/Procedures:: david hips Dermatological Surgical History: Reports: None Social & Family History - Family History Family Medical History: No Pertinent Family History - Tobacco Use Tobacco Use Status *Q: Former Tobacco User Years of Tobacco use: 50 Packs/Tins Daily: 1 Used Tobacco, but Quit: No Month/Year Tobacco Last Used: 11/17/16 - Caffeine Use Caffeine Use: Reports: Coffee, Tea H&P Review of Systems - Review of Systems: Review Of Systems: See Below General: Reports: No Symptoms HEENT: Reports: No Symptoms Pulmonary: Reports: No Symptoms Cardiovascular: Denies: Chest Pain Gastrointestinal: Reports: No Symptoms Genitourinary: Reports: No Symptoms Musculoskeletal: Reports: No Symptoms Skin: Reports: No Symptoms Psychiatric: Denies: Confusion, Depression, Anxiety Neurological: Denies: Confusion Hematologic/Lymphatic: Reports: Anemia Immunologic: Reports: No Symptoms Exam - Exam Exam: See Below - Vital Signs Vital Signs: Last Vital Signs Temp 97.5 F 01/07/21 06:34 Pulse 79 01/07/21 06:34 Resp 20 01/07/21 06:34 BP 104/44 L 01/07/21 06:34 Pulse Ox 93 L 01/07/21 06:34 Weight: 175 lb 3 oz - Exam Quality Assessment: DVT Prophylaxis. No: Supplemental Oxygen General: Alert, Oriented HEENT: Mucosa Moist & Reubens Lungs: Clear to Auscultation, Normal Respiratory Effort Cardiovascular: Regular Rate, Regular Rhythm, Systolic Murmur GI/Abdominal Exam: Soft, Non-Tender (Male) Exam: Deferred Rectal (Males) Exam: Deferred Back Exam: No: CVA Tenderness (L), CVA Tenderness (R) Extremities: No Pedal Edema Skin: Warm, Dry, Intact Neurological: Normal Speech, Sensation Intact Neuro Extensive - Mental Status: Alert, Oriented x3, Normal Mood/Affect, Normal Cognition Neuro Extensive - Motor, Sensory, Reflexes: CN II-XII Intact Psychiatric: Alert, Normal Affect. No: Agitated - Patient Data Lab Results Last 24 hrs: Laboratory Results - last 24 hr 01/06/21 01/06/21 01/06/21 Range/Units 23:20 23:20 23:20 WBC 2.91 L (5.00-10.00) 10^3/uL RBC 2.48 L (4.50-6.00) 10^6/uL Hgb 8.7 L (13.0-17.0) g/dL Hct 26.9 L (40.0-52.0) % MCV 108.5 H D (82.0-92.0) fL MCH 35.1 H (27.0-31.0) pg MCHC 32.3 (32.0-36.0) g/dL RDW 13.9 (11.5-14.5) % Plt Count 187 (150-400) 10^3/uL MPV 9.3 (7.4-10.4) fL Immature Gran % (Auto) Joiner Helper Neut % (Auto) Joiner Helper Lymph % (Auto) Joiner Helper Dubois % (Auto) Joiner Helper Eos % (Auto) Joiner Helper Baso % (Auto) Joiner Helper Neut # (Auto) Joiner Helper Lymph # (Auto) Joiner Helper [place]ois # (Auto) Joiner Helper Eos # (Auto) Joiner Helper Baso # (Auto) Joiner Helper Immature Gran # (Auto) Joiner Helper Add Manual Diff Yes Neutrophils % (Manual) 65 (50-70) % Band Neutrophils % 5 (4-12) % Lymphocytes % (Manual) 8 L (20-40) % Atypical Lymphs % 2 Monocytes % (Manual) 20 H (2-8) % Eosinophils % (Manual) 0 L (1-3) % Basophils % (Manual) 0 (0-1) % Platelet Estimate Adequate Anisocytosis 1+ slight Macrocytosis 1+ slight APTT (22.8-31.4) SEC D-Dimer, Quantitative 1200 H (<400) ng/mL Sodium 137 (136-145) mmol/L Potassium 4.2 (3.5-5.1) mmol/L Chloride 100 (98-107) mmol/L Carbon Dioxide 23.1 (21.0-32.0) mmol/L Anion Gap 18.1 H (5-15) mmol/L BUN 30 H (7-18) mg/dL Creatinine 2.49 H (0.51-1.17) mg/dL Est Cr Clr Drug Dosing 25.18 mL/min Estimated GFR (MDRD) 25 mL/min Glucose 100 (70-140) mg/dL Calcium 8.6 L (8.7-10.3) mg/dL Magnesium (1.8-2.4) mg/dL Troponin I High Sens 105.200 H* (0-76.000) pg/mL B-Natriuretic Peptide (0-100) pg/mL SARS CoV-2 RNA Rapid MAGALIE (NEGATIVE) 01/06/21 01/06/21 01/06/21 Range/Units 23:20 23:20 23:20 WBC (5.00-10.00) 10^3/uL RBC (4.50-6.00) 10^6/uL Hgb (13.0-17.0) g/dL Hct (40.0-52.0) % MCV (82.0-92.0) fL MCH (27.0-31.0) pg MCHC (32.0-36.0) g/dL RDW (11.5-14.5) % Plt Count (150-400) 10^3/uL MPV (7.4-10.4) fL Immature Gran % (Auto) Neut % (Auto) Lymph % (Auto) Dubois % (Auto) Eos % (Auto) Baso % (Auto) Neut # (Auto) Lymph # (Auto) Dubois # (Auto) Eos # (Auto) Baso # (Auto) Immature Gran # (Auto) Add Manual Diff Neutrophils % (Manual) (50-70) % Band Neutrophils % (4-12) % Lymphocytes % (Manual) (20-40) % Atypical Lymphs % Monocytes % (Manual) (2-8) % Eosinophils % (Manual) (1-3) % Basophils % (Manual) (0-1) % Platelet Estimate Anisocytosis Macrocytosis APTT 25.6 (22.8-31.4) SEC D-Dimer, Quantitative (<400) ng/mL Sodium (136-145) mmol/L Potassium (3.5-5.1) mmol/L Chloride (98-107) mmol/L Carbon Dioxide (21.0-32.0) mmol/L Anion Gap (5-15) mmol/L BUN (7-18) mg/dL Creatinine (0.51-1.17) mg/dL Est Cr Clr Drug Dosing mL/min Estimated GFR (MDRD) mL/min Glucose (70-140) mg/dL Calcium (8.7-10.3) mg/dL Magnesium 1.6 L (1.8-2.4) mg/dL Troponin I High Sens (0-76.000) pg/mL B-Natriuretic Peptide 539 H (0-100) pg/mL SARS CoV-2 RNA Rapid MAGALIE (NEGATIVE) 01/07/21 01/07/21 01/07/21 Range/Units 02:41 05:37 05:37 WBC (5.00-10.00) 10^3/uL RBC (4.50-6.00) 10^6/uL Hgb (13.0-17.0) g/dL Hct (40.0-52.0) % MCV (82.0-92.0) fL MCH (27.0-31.0) pg MCHC (32.0-36.0) g/dL RDW (11.5-14.5) % Plt Count (150-400) 10^3/uL MPV (7.4-10.4) fL Immature Gran % (Auto) Neut % (Auto) Lymph % (Auto) Dubois % (Auto) Eos % (Auto) Baso % (Auto) Neut # (Auto) Lymph # (Auto) Dubois # (Auto) Eos # (Auto) Baso # (Auto) Immature Gran # (Auto) Add Manual Diff Neutrophils % (Manual) (50-70) % Band Neutrophils % (4-12) % Lymphocytes % (Manual) (20-40) % Atypical Lymphs % Monocytes % (Manual) (2-8) % Eosinophils % (Manual) (1-3) % Basophils % (Manual) (0-1) % Platelet Estimate Anisocytosis Macrocytosis APTT 46.9 H D (22.8-31.4) SEC D-Dimer, Quantitative (<400) ng/mL Sodium (136-145) mmol/L Potassium (3.5-5.1) mmol/L Chloride (98-107) mmol/L Carbon Dioxide (21.0-32.0) mmol/L Anion Gap (5-15) mmol/L BUN (7-18) mg/dL Creatinine (0.51-1.17) mg/dL Est Cr Clr Drug Dosing mL/min Estimated GFR (MDRD) mL/min Glucose (70-140) mg/dL Calcium (8.7-10.3) mg/dL Magnesium (1.8-2.4) mg/dL Troponin I High Sens 251.600 H* (0-76.000) pg/mL B-Natriuretic Peptide (0-100) pg/mL SARS CoV-2 RNA Rapid MAGALIE Negative (NEGATIVE) Result Diagrams: 01/06/21 23:20 01/07/21 15:30 Sepsis Event Note - Evaluation Sepsis Screening Result: Possible Sepsis Risk - Focused Exam Vital Signs: Vital Signs Temp Pulse Pulse Resp BP BP Pulse Ox 01/07/21 06:34 97.5 F 79 20 104/44 L 93 L 09/03/21 02:00 99.9 F 85 20 120/37 L 94 L 01/07/21 00:22 99.9 F 01/06/21 23:45 104 H 24 H 135/81 95 01/06/21 23:33 95 20 132/52 L 92 L 01/06/21 23:16 101 H 13 107/63 93 L 01/06/21 23:02 97 17 132/67 94 L 01/06/21 22:48 105 H 15 122/58 L 98 01/06/21 22:34 95 17 109/68 94 L 01/06/21 22:20 99.4 F 92 29 H 100/46 L 91 L Problem List Initiated/Reviewed/Updated: Yes Orders Last 24hrs: Active Orders 24 hr Category Date Time Status Patient Status [ADT] Routine ADT 01/07/21 01:42 Active Peripheral IV Care [RC] . DIRECTED Care 01/06/21 23:10 Active Telemetry Monitoring [Cardiac Monitoring] [RC] . Care 01/07/21 07:59 Active DIRECTED Acetaminophen [TylenoL] Med 01/07/21 04:51 Active 650 mg PO Q4H PRN Acetaminophen [Tylenol Extra Strength] Med 01/07/21 09:00 Active 1,000 mg PO TID DULoxetine [Cymbalta] Med 01/07/21 09:00 Active 60 mg PO DAILY Ferrous Sulfate Med 01/07/21 09:00 Active 325 mg PO DAILY Fluticasone Propionate [Flonase] Med 01/07/21 08:06 Active 0 gm NASBOTH BID PRN Heparin Sodium/D5W 250 ml Med 01/07/21 01:45 Active IV TITRATE Nitroglycerin [Nitrostat] Med 01/07/21 08:06 Active 0.4 mg SL ASDIRECTED PRN Non-Formulary Medication [NF Drug] Med 01/07/21 08:06 Ordered DOSE each TOP QID PRN Pravastatin [Pravachol] Med 01/07/21 21:00 Ordered 10 mg PO BEDTIME Sodium Bicarbonate Med 01/07/21 09:00 Active 325 mg PO DAILY Sodium Chloride 0.9% [Normal Saline] 50 ml Med 01/07/21 02:15 Active IV ASDIRECTED Sodium Chloride 0.9% [Saline Flush] Med 01/06/21 23:10 Active 10 ml FLUSH Q8HR PRN atenoloL [Tenormin] Med 01/07/21 09:00 Active 25 mg PO DAILY metroNIDAZOLE [Metronidazole] Med 01/07/21 09:00 Ordered 1 applic TP DAILY polyethylene glycoL 3350 [MiraLAX] Med 01/07/21 09:00 Active 17 gm PO DAILY Peripheral IV Insertion Adult [OM.PC] Routine Oth 01/06/21 23:10 Ordered EKG 12 Lead [EK] Stat Ther 01/06/21 22:34 Ordered EKG 12 Lead [EK] Stat Ther 01/07/21 01:08 Ordered Medication Orders Acetaminophen (Acetaminophen 325 Mg Tab) 650 mg PO Q4H PRN PRN Reason: Pain Last Admin: 01/07/21 04:58 Dose: 650 mg Documented by: SHLOMO Acetaminophen (Acetaminophen 500 Mg Tab) 1,000 mg PO TID ALFREDO Atenolol (Atenolol 25 Mg Tab) 25 mg PO DAILY ALFREDO Duloxetine HCl (Duloxetine 30 Mg Cap) 60 mg PO DAILY ALFREDO Ferrous Sulfate (Ferrous Sulfate 325 Mg Tab) 325 mg PO DAILY ALFREDO Fluticasone Propionate (Fluticasone Propionate Nasal [place] 16 Gm Bottle) 0 gm NASBOTH BID PRN PRN Reason: Other Heparin Sodium/Dextrose () 250 mls @ 9.362 mls/hr IV TITRATE ALFREDO; Protocol Last Titration: 01/07/21 06:23 Dose: 14 units/kg/hr, 10.923 mls/hr Documented by: SHLOMO Cosigned by: DIANNE Admin: 01/07/21 02:45 Dose: 12 units/kg/hr, 9.362 mls/hr Documented by: DIANNE Cosigned by: SHLOMO Sodium Chloride (Normal Saline) 50 mls @ 50 mls/hr IV ASDIRECTED ALFREDO Nitroglycerin (Nitroglycerin 0.4 Mg Tab.Sl) 0.4 mg SL ASDIRECTED PRN PRN Reason: Chest Pain Non-Formulary Medication (Metronidazole [Metronidazole]) 1 applic TP DAILY ALFREDO Non-Formulary Medication (Non-Formulary Medication 1 Each) each TOP QID PRN PRN Reason: Pain Non-Formulary Medication (Pravastatin [Pravachol]) 10 mg PO BEDTIME ALFREDO Polyethylene Glycol (Polyethylene Glycol 3350 Powder 17 Gm Packet) 17 gm PO DAILY ALFREDO Sodium Bicarbonate (Sodium Bicarbonate 650 Mg Tab) 325 mg PO DAILY ALFREDO Sodium Chloride (Sodium Chloride 0.9% 10 Ml Syringe) 10 ml FLUSH Q8HR PRN PRN Reason: keep vein open Last Admin: 01/06/21 23:20 Dose: 10 ml Documented by: DIANNE Assessment/Plan Comment:: Please use this as a combined H&P and DC summary History of Present Illness Mr Jones is a 75 y/o male who was admitted last night for ACS NSTEMI and is awaiting transfer to tertiary facility [facility] for cardiac workup and likely angiogram. Patient presented to ED late night with general weakness, body aches mainly in back and legs. Denoted he couldn't get out of his recliner this and eventually alerted EMS. History denotes vague sx of poor fluid intake, shortness of breath and pain across middle upper abdomen and cough for 2 weeks. He had the third (booster) covid vaccine 01/06. Significant coronary history including CAD, hyperlipidemia, hypertension, previous [place], PVD ED findings/workup EKG, SR with trigeminy pattern, incomplete RBBB, Chest x-ray, airway disease Initial troponin 105, Anemia, BNP 539 Negative Covid Primary hospital problems Acute coronary syndrome, non-STEMI, heparin drip, hold Plavix, CAD, hyperlipidemia, hypertension, previous KS/PVD Diarrhea, Immodium. Chronic problems COPD CKD, stage III Arthritis, chronic back pain, Depression Immunosuppression CAD, hyperlipidemia, hypertension, previous KS/PVD Disposition/overall plan awaiting transfer to [facility], clear fluids for breakfast then NPO, NS at 75cc/hr. Please use this as a combined H&P and DC summary
[2021-01-07] MEDS: Acetaminophen 500 MG Tab PO SCH ×2 (10:18→14:58)
[2021-01-07 14:55] VITALS: PULSE 88
[2021-01-07] MEDS ORDERED: Sodium Chloride 0.9% 1,000 ML IV ONE (15:23)
[2021-01-07] MEDS ORDERED: Loperamide 2 MG Cap PO PRN (15:24)
[2021-01-07 15:59] LABS: ANION GAP 14.7 mmol/L (5-15)
[2021-01-07 18:19] VITALS: BP 104/49
[2021-01-07] MEDS ORDERED: PRAVACHOL 10 MG PO SCH (21:00)
[2021-01-08] MEDS ORDERED: METRONIDAZOLE TOP SCH (09:00)
== END 2021-01-07 18:30 ==
LOC: KA.ED 22:13 → KA.MS 01-07 01:42 → UNDOADMOB 01-07 01:45
PROVIDERS: ADMIT Nurse Practitioner Family; ATTEND Family Medicine
DX: I24.9 Acute ischemic heart disease, unspecified (principal); I21.4 Non-ST elevation (NSTEMI) myocardial infarction; I25.2 Old myocardial infarction; I25.10 Atherosclerotic heart disease of native coronary artery without angina pectoris; I12.9 Hypertensive chronic kidney disease with stage 1 through stage 4 chronic kidney disease, or unspecified chronic kidney disease; N18.30 Chronic kidney disease, stage 3 unspecified; E78.5 Hyperlipidemia, unspecified; E78.00 Pure hypercholesterolemia, unspecified; J44.9 Chronic obstructive pulmonary disease, unspecified; M19.90 Unspecified osteoarthritis, unspecified site; F32.9 Major depressive disorder, single episode, unspecified; R79.1 Abnormal coagulation profile; Z20.822 Contact with and (suspected) exposure to COVID-19; Z88.8 Allergy status to other drugs, medicaments and biological substances; Z79.82 Long term (current) use of aspirin; Z79.899 Other long term (current) drug therapy; Z87.01 Personal history of pneumonia (recurrent)
CPT/HCPCS: 36415; 71045; 80048; 83735; 83880; 84484; 85025; 85379; 85730; 93005; 96365; 96366; 96374; 96375; 99285; 99285-25; A9270-GY; G0378; J1644; J7030; Q3014; U0002

== ENCOUNTER 2021-02-22 22:51 | Emergency (ER) | payer MEDICARE, BC ==
--- NOTE | 2021-02-22 22:55 | EDM.PDOC ---
ED HPI GENERAL MEDICAL PROBLEM - General Chief Complaint: General Stated Complaint: ? reaction to flu shot Time Seen by Provider: 02/22/21 22:54 Source of Information: Reports: Patient History Limitations: Reports: No Limitations - History of Present Illness INITIAL COMMENTS - FREE TEXT/NARRATIVE: Romero, 75-year-old male, presents by ambulance tonight accompanied with his stating he hurts all over. He had his influenza immunization this afternoon at the [facility] here in [place]. His states that he has been worse the past few days as he underwent testing in [place], ankle brachial index, having to lay on his back Extended period of time for the testing. This is been chronic in nature but significantly flared up from that procedure. He saw Dr. Gold's today, Here at the [facility] with no note available, for follow-up on his prostate cancer chemotherapy and radiation treatment from the past. He does not give details to primary secondary or metastatic process in the last visit He also complains of hip pain, arm pain, generalized pain, and back pain. All of which have significantly worsened in the past months. Onset: Today, Sudden Duration: Hour(s): Lower Back Pain Score (Numeric/FACES): 10 - Related Data Allergies Allergy/AdvReac Type Severity Reaction Status Date / Time atorvastatin Allergy Diarrhea Verified 02/22/21 23:02 leuprolide [From Lupron] Allergy Itching Verified 02/22/21 23:02 Home Meds: Home Meds Aspirin [Adult Low Dose Aspirin EC] 81 mg PO DAILY 07/26/16 [History] Clopidogrel Bisulfate [Clopidogrel] 75 mg PO DAILY 07/26/16 [History] Sodium Bicarbonate 650 mg PO DAILY 07/26/16 [History] Acetaminophen 1,000 mg PO Q6H PRN 11/17/16 [History] Nitroglycerin 0.4 mg SL ASDIRECTED PRN 11/17/16 [History] Non-Formulary Medication [NF Drug] 1 applic TOP QID PRN 11/17/16 [History] Calcium Carbonate [Calcium Antacid] 200 mg PO ASDIRECTED PRN 10/08/18 [History] Mesal/Menth/Camph/[place] Fir [Vicks Vapoinhaler] 1 each NS ASDIRECTED PRN 10/08/18 [History] oxyCODONE 5 mg PO BID PRN 10/08/18 [History] Fluticasone Propionate [Flonase] 1 sprays NS BID 09/15/19 [History] Pravastatin [Pravachol] 10 mg PO BEDTIME 09/15/19 [History] diphenhydrAMINE [Benadryl] 25 mg PO Q6H PRN 09/15/19 [History] Hydrocortisone [Proctozone-HC 2.5% Crm] 1 applic TOP BID PRN 01/14/20 [History] Calcium Carbonate/Vitamin D3 [Calcium 500 + Vit D 400] 2 each PO BID 01/07/21 [History] DULoxetine [Cymbalta] 60 mg PO DAILY 01/07/21 [History] polyethylene glycoL 3350 [MiraLAX] 17 gm PO DAILY PRN 01/07/21 [History] Darbepoetin Dillan in Polysorbat [Aranesp] 100 mcg IJ ASDIRECTED 01/13/21 [History ] Diphenoxylate HCl/Atropine [Lomotil] 1 tab PO QID PRN 01/13/21 [History] hydrOXYzine pamoate [Vistaril] 25 mg PO Q6H PRN 01/13/21 [History] Ferrous Sulfate 325 mg PO DAILY 02/22/21 [History] Metoprolol Tartrate [Lopressor] 25 mg PO Q12HR 02/22/21 [History] Past Medical History HEENT History: Reports: Allergic Rhinitis, Epistaxis, Hard of Hearing, Impaired Vision, Sinusitis, Other (See Below) Other HEENT History: injury to left side of face playing football with eye injury Cardiovascular History: Reports: Angina, CAD, High Cholesterol, Hypertension, HI, PVD, Other (See Below) Other Cardiovascular History: PVD Respiratory History: Reports: COPD, Pneumonia, Recurrent Gastrointestinal History: Reports: Chronic Diarrhea, Diverticulosis, Gastritis, GERD Other Gastrointestinal History: states that he has diarrhea from taking a statin Genitourinary History: Reports: Chronic Renal Insuffiency, Prostate Disorder (Prostate cancer having been treated with radiation and chemotherapy.) Other Genitourinary History: stage 3 kidney disease Musculoskeletal History: Reports: Arthritis, Back Pain, Chronic, Fracture, Osteoarthritis Neurological History: Reports: Head Trauma, Migraines Psychiatric History: Reports: Addiction, Depression Endocrine/Metabolic History: Reports: Vitamin D Deficiency Hematologic History: Reports: Anesthesia Reaction, B12 Deficiency, Blood Transfusion(s) Other Hematologic History: wakes up from anesthesia violently Immunologic History: Reports: Immunosuppression Oncologic (Cancer) History: Reports: Prostate - Infectious Disease History Infectious Disease History: Reports: Chicken Pox, Measles, Mumps - Past Surgical History Head Surgeries/Procedures: Reports: None HEENT Surgical History: Reports: Eye Surgery, Tonsillectomy Cardiovascular Surgical History: Reports: AAA Repair, Carotid Stents, Coronary Artery Bypass, Other (See Below) Other Cardiovascular Surgeries/Procedures: 4 stents to right iliac artery, 2 stents to left iliac artery GI Surgical History: Reports: Hernia, Inguinal Male Surgical History: Reports: Other (See Below) Other Male Surgeries/Procedures: stents to renal artery bilateral Neurological Surgical History: Reports: None Musculoskeletal Surgical History: Reports: Hip Replacement Other Musculoskeletal Surgeries/Procedures:: david hips Dermatological Surgical History: Reports: None Social & Family History - Family History Family Medical History: No Pertinent Family History - Caffeine Use Caffeine Use: Reports: Coffee, Tea ED ROS GENERAL - Review of Systems Review Of Systems: Comprehensive ROS is negative, except as noted in HPI. ED EXAM, GENERAL - Physical Exam Exam: See Below Free Text/Narrative:: Alert, oriented, in painful response. HEENT is negative discharge or deformity. He is able speak freely with no deficits other than his stutter. Thorax is somewhat diminished and raspy predominantly on the right lower lobe. Cardiac is regular. Tenderness is noted to palpation of the right deltoid of which I remove the Band-Aid showing no erythema or inflammation from his influenza immunization today. Motion of the extremities is discomforting. Tenderness is scattered throughout the body on examination with no specific point tenderness. Aches to the lower extremities pelvis and predominantly his back. I offer abdominal x-ray while we are in the department to which he refuses as I informed him his creatinine is not warranting any CT as he has a very low filtration rate. He understands, as well as his that he cannot undergo contrast scanning. Course - Vital Signs Last Recorded V/S: Last Vital Signs Temp 100.9 F H 02/22/21 23:50 Pulse 58 L 02/22/21 22:53 Resp 18 02/22/21 22:53 BP 137/50 L 02/22/21 22:53 Pulse Ox 95 02/22/21 22:53 - Orders/Labs/Meds Orders: Active Orders 24 hr Category Date Time Status Peripheral IV Care [RC] . DIRECTED Care 02/22/21 23:03 Active Chest 2V [CR] Stat Exams 02/22/21 23:01 Ordered CULTURE BLOOD [BC] Stat Lab 02/22/21 23:03 Ordered Sodium Chloride 0.9% [Saline Flush] Med 02/22/21 23:01 Active 10 ml FLUSH Q8HR PRN Blood Culture x2 Reflex Set [OM.PC] Stat Oth 02/22/21 23:02 Ordered Isolation [COMM] Routine Oth 02/23/21 00:11 Ordered Peripheral IV Insertion Adult [OM.PC] Stat Oth 02/22/21 23:02 Ordered Medication Orders Sodium Chloride (Sodium Chloride 0.9% 10 Ml Syringe) 10 ml FLUSH Q8HR PRN PRN Reason: keep vein open Labs: Laboratory Tests 02/22/21 02/22/21 02/22/21 Range/Units 23:02 23:10 23:10 WBC 2.66 L (5.00-10.00) 10^3/uL RBC 2.30 L (4.50-6.00) 10^6/uL Hgb 7.9 L (13.0-17.0) g/dL Hct 24.4 L (40.0-52.0) % MCV 106.1 H (82.0-92.0) fL MCH 34.3 H (27.0-31.0) pg MCHC 32.4 (32.0-36.0) g/dL RDW 14.9 H (11.5-14.5) % Plt Count 181 (150-400) 10^3/uL MPV 9.2 (7.4-10.4) fL Immature Gran % (Auto) 0.4 (0.0-5.0) % Neut % (Auto) 76.3 H (50.0-70.0) % Lymph % (Auto) 2.6 L (20.0-40.0) % [place] % (Auto) 16.5 H (2.0-8.0) % Eos % (Auto) 3.4 H (1.0-3.0) % Baso % (Auto) 0.8 (0.0-1.0) % Neut # (Auto) 2.03 L (2.50-7.00) 10^3/uL Lymph # (Auto) 0.07 L (1.00-4.00) 10^3/uL [place] # (Auto) 0.44 (0.10-0.80) 10^3/uL Eos # (Auto) 0.09 L (0.10-0.30) 10^3/uL Baso # (Auto) 0.02 (0.00-0.10) 10^3/uL Immature Gran # (Auto) 0.01 (0.00-0.50) 10^3/uL Sodium 140 (136-145) mmol/L Potassium 4.6 (3.5-5.1) mmol/L Chloride 106 (98-107) mmol/L Carbon Dioxide 21.8 (21.0-32.0) mmol/L Anion Gap 16.8 H (5-15) mmol/L BUN 27 H (7-18) mg/dL Creatinine 2.43 H (0.51-1.17) mg/dL Est Cr Clr Drug Dosing 25.80 mL/min Estimated GFR (MDRD) 26 mL/min Glucose 111 (70-140) mg/dL Lactic Acid (0.4-2.0) mmol/L Calcium 8.9 (8.7-10.3) mg/dL Total Bilirubin 0.4 (0.2-1.0) mg/dL AST 24 (15-37) U/L ALT 28 (14-63) U/L Alkaline Phosphatase 59 (46-116) U/L Total Protein 7.1 (6.4-8.2) g/dL Albumin 3.16 L (3.40-5.00) g/dL Specimen Type Urincc Urine Color Yellow (YELLOW) Urine Appearance Clear (CLEAR) Urine pH 6.5 (5.0-9.0) Ur Specific [place] 1.020 (1.005-1.030) Urine Protein Negative (NEGATIVE) mg/dL Urine Glucose (UA) Negative (NEGATIVE) mg/dL Urine Ketones Negative (NEGATIVE) mg/dL Urine Occult Blood Trace-lysed H (NEGATIVE) Urine Nitrite Negative (NEGATIVE) Urine Bilirubin Negative (NEGATIVE) Urine Urobilinogen 0.2 (0.2-1.0) E.U./dL Ur Leukocyte Esterase Negative (NEGATIVE) Urine RBC 0-5 (0-5) /HPF Urine WBC Not seen (0-5) /HPF Ur Epithelial Cells Rare /LPF Urine Bacteria Not seen (NONE TO FEW) /HPF 02/22/21 Range/Units 23:10 WBC (5.00-10.00) 10^3/uL RBC (4.50-6.00) 10^6/uL Hgb (13.0-17.0) g/dL Hct (40.0-52.0) % MCV (82.0-92.0) fL MCH (27.0-31.0) pg MCHC (32.0-36.0) g/dL RDW (11.5-14.5) % Plt Count (150-400) 10^3/uL MPV (7.4-10.4) fL Immature Gran % (Auto) (0.0-5.0) % Neut % (Auto) (50.0-70.0) % Lymph % (Auto) (20.0-40.0) % [place] % (Auto) (2.0-8.0) % Eos % (Auto) (1.0-3.0) % Baso % (Auto) (0.0-1.0) % Neut # (Auto) (2.50-7.00) 10^3/uL Lymph # (Auto) (1.00-4.00) 10^3/uL [place] # (Auto) (0.10-0.80) 10^3/uL Eos # (Auto) (0.10-0.30) 10^3/uL Baso # (Auto) (0.00-0.10) 10^3/uL Immature Gran # (Auto) (0.00-0.50) 10^3/uL Sodium (136-145) mmol/L Potassium (3.5-5.1) mmol/L Chloride (98-107) mmol/L Carbon Dioxide (21.0-32.0) mmol/L Anion Gap (5-15) mmol/L BUN (7-18) mg/dL Creatinine (0.51-1.17) mg/dL Est Cr Clr Drug Dosing mL/min Estimated GFR (MDRD) mL/min Glucose (70-140) mg/dL Lactic Acid 1.4 (0.4-2.0) mmol/L Calcium (8.7-10.3) mg/dL Total Bilirubin (0.2-1.0) mg/dL AST (15-37) U/L ALT (14-63) U/L Alkaline Phosphatase (46-116) U/L Total Protein (6.4-8.2) g/dL Albumin (3.40-5.00) g/dL Specimen Type Urine Color (YELLOW) Urine Appearance (CLEAR) Urine pH (5.0-9.0) Ur Specific [place] (1.005-1.030) Urine Protein (NEGATIVE) mg/dL Urine Glucose (UA) (NEGATIVE) mg/dL Urine Ketones (NEGATIVE) mg/dL Urine Occult Blood (NEGATIVE) Urine Nitrite (NEGATIVE) Urine Bilirubin (NEGATIVE) Urine Urobilinogen (0.2-1.0) E.U./dL Ur Leukocyte Esterase (NEGATIVE) Urine RBC (0-5) /HPF Urine WBC (0-5) /HPF Ur Epithelial Cells /LPF Urine Bacteria (NONE TO FEW) /HPF Meds: Medications Generic Name Dose Route Start Last Admin Trade Name Freq PRN Reason Stop Dose Admin Sodium Chloride 10 ml 02/22/21 23:01 Sodium Chloride 0.9% 10 Ml Syringe FLUSH Q8HR PRN keep vein open Discontinued Medications Generic Name Dose Route Start Last Admin Trade Name Freq PRN Reason Stop Dose Admin Sodium Chloride 1,000 mls @ 999 mls/hr 02/22/21 23:05 02/22/21 23:23 Normal Saline IV 02/23/21 00:05 999 mls/hr .BOLUS ONE Administration Morphine Sulfate 1 mg 02/22/21 23:05 02/22/21 23:24 Morphine 2 Mg/Ml Syringe IVPUSH 02/22/21 23:06 1 mg ONETIME ONE Administration Ondansetron HCl 4 mg 02/22/21 23:03 02/22/21 23:23 Ondansetron 4 Mg/2 Ml Sdv IVPUSH 02/22/21 23:04 4 mg ONETIME ONE Administration Departure - Departure Time of Disposition: 00:24 Disposition: Home, Self-Care 01 Condition: Fair Clinical Impression: Chronic pain, Immunization reaction - Discharge Information *PRESCRIPTION DRUG MONITORING PROGRAM REVIEWED*: Not Applicable *COPY OF PRESCRIPTION DRUG MONITORING REPORT IN PATIENT TIKI: Not Applicable Referrals: Veronica Judd MD [Physician] - Forms: ED Department Discharge Additional Instructions: Discussed with Romero that his lab work all he is comparatively stable in regards to his previous that is done monthly for his oncology follow-up. Chest x-ray was read as no evidence of consolidation or effusion. Slight improvement in his status has been noted since arrival and with lab work not pointing to anything significant it is likely that this is a side effect/reaction of his influenza immunization. He states that he wants to go home. I have more concern for the fact that in review of the [place] chart Dr. Fleiz specifically talks about monthly that his pain is increasing but yet Romero has not addressed the issue with his primary Dr. Jaiden Watters for an adjustment in medication. I strongly encourage calling the clinic to at least message Dr. Jaiden Watters if not actually having an appointment to discuss his chronic issues that are gradually worsening to which I am unsure if it is related to his prostate cancer or not. Considerations for some form of adjustment should be discussed. Contact your clinic tomorrow to arrange consult for pain management. Continue all your medications as directed. Return to the emergency department as needed outside of clinic hours Sepsis Event Note (ED) - Focused Exam Vital Signs: Vital Signs Temp Pulse Resp BP Pulse Ox 02/22/21 23:50 100.9 F H 02/22/21 22:53 101 F H 58 L 18 137/50 L 95 - Problem List & Annotations (1) Chronic pain SNOMED Code(s): 09722279 Code(s): G89.29 - OTHER CHRONIC PAIN Status: Acute Priority: High Qualifiers: Chronic pain type: chronic pain syndrome Qualified Code(s): G89.4 - Chronic pain syndrome (2) Immunization reaction SNOMED Code(s): 756273256 Code(s): T50.Z95A - ADVERSE EFFECT OF VACCINES AND BIOLOGICAL SUBSTANCES, INIT Status: Acute Priority: Medium Qualifiers: Encounter type: initial encounter Qualified Code(s): T50.Z95A - Adverse effect of other vaccines and biological substances, initial encounter - Problem List Review Problem List Initiated/Reviewed/Updated: Yes - My Orders Last 24 Hours: My Active Orders 02/22/21 23:01 Chest 2V [CR] Stat Sodium Chloride 0.9% [Saline Flush] 10 ml FLUSH Q8HR PRN 02/22/21 23:02 Blood Culture x2 Reflex Set [OM.PC] Stat Peripheral IV Insertion Adult [OM.PC] Stat 02/22/21 23:03 Peripheral IV Care [RC] . DIRECTED CULTURE BLOOD [BC] Stat 02/23/21 00:11 Isolation [COMM] Routine - Assessment/Plan Last 24 Hours: My Active Orders 02/22/21 23:01 Chest 2V [CR] Stat Sodium Chloride 0.9% [Saline Flush] 10 ml FLUSH Q8HR PRN 02/22/21 23:02 Blood Culture x2 Reflex Set [OM.PC] Stat Peripheral IV Insertion Adult [OM.PC] Stat 02/22/21 23:03 Peripheral IV Care [RC] . DIRECTED CULTURE BLOOD [BC] Stat 02/23/21 00:11 Isolation [COMM] Routine Plan: Discussed with Romero that his lab work all he is comparatively stable in regards to his previous that is done monthly for his oncology follow-up. Chest x-ray was read as no evidence of consolidation or effusion. Slight improvement in his status has been noted since arrival and with lab work not pointing to anything significant it is likely that this is a side effect/reaction of his influenza immunization. He states that he wants to go home. I have more concern for the fact that in review of the [place] chart Dr. Feliz specifically talks about monthly that his pain is increasing but yet Romero has not addressed the issue with his primary Dr. Jaiden Watters for an adjustment in medication. I strongly encourage calling the clinic to at least message Dr. Jaiden Watters if not actually having an appointment to discuss his chronic issues that are gradually worsening to which I am unsure if it is related to his prostate cancer or not. Considerations for some form of adjustment should be discussed. Contact your clinic tomorrow to arrange consult for pain management. Continue all your medications as directed. Return to the emergency department as needed outside of clinic hours.
[2021-02-22 23:01] VITALS: BP 137/50; PULSE 58
[2021-02-22] MEDS ORDERED: Sodium Chloride 0.9% 10 ML Syringe FLUSH PRN (23:01)
[2021-02-22] MEDS ORDERED: Ondansetron 4 MG/2 ML SDV IVPUSH ONE (23:03)
[2021-02-22] MEDS ORDERED: Sodium Chloride 0.9% 1,000 ML IV ONE (23:05)
[2021-02-22] MEDS ORDERED: Morphine 2 MG/ML SYRINGE IVPUSH ONE (23:05)
[2021-02-22 23:44] LABS: ANION GAP 16.8 mmol/L (5-15)
--- NOTE | 2021-02-23 08:00 | CR ---
[id number] RAD/RAD Chest PA And Lateral EXAM: RAD Chest PA And Lateral INDICATION: FEVER COMPARISON: January 06, 2021. DISCUSSION: Low lung volumes result in mild central vascular crowding and basilar atelectasis. Stable cardiomegaly with borderline central vascular congestion. No effusions. Coronary artery stent and abdominal aorta stent graft. IMPRESSION: 1. Cardiomegaly with borderline central vascular congestion. Vahid Ronquillo MD 02/23/21 0759 Thank you for allowing us to participate in the care of your patient.
== END 2021-02-23 00:40 | disposition home or self-care (01) ==
LOC: KA.ED 22:51
DX: G89.29 Other chronic pain (principal); T50.B95A Adverse effect of other viral vaccines, initial encounter; I25.119 Atherosclerotic heart disease of native coronary artery with unspecified angina pectoris; E78.00 Pure hypercholesterolemia, unspecified; I12.9 Hypertensive chronic kidney disease with stage 1 through stage 4 chronic kidney disease, or unspecified chronic kidney disease; N18.9 Chronic kidney disease, unspecified; M19.90 Unspecified osteoarthritis, unspecified site; I25.2 Old myocardial infarction; J44.9 Chronic obstructive pulmonary disease, unspecified; K21.9 Gastro-esophageal reflux disease without esophagitis; Z88.8 Allergy status to other drugs, medicaments and biological substances; Z79.82 Long term (current) use of aspirin; Z79.02 Long term (current) use of antithrombotics/antiplatelets; Z79.899 Other long term (current) drug therapy
CPT/HCPCS: 36415; 71046; 80053; 81001; 83605; 85025; 87040; 96374; 96375; 99283; 99284; J2270; J2405; J7030

== ENCOUNTER 2021-02-24 08:44 | Emergency (ER) | payer MEDICARE, BC ==
--- NOTE | 2021-02-24 09:15 | EDM.PDOC ---
ED HPI GENERAL MEDICAL PROBLEM - General Chief Complaint: Head Injury Stated Complaint: FALL Time Seen by Provider: 02/24/21 08:59 Source of Information: Reports: Patient, Family History Limitations: Reports: No Limitations - History of Present Illness INITIAL COMMENTS - FREE TEXT/NARRATIVE: Romero, 75-year-old male, presents by ambulance after he fell this morning while reaching for a toy ball for his cat. States he leaned over losing his balance, grabbing onto a chair that then fell ending up striking his head on furniture. There was no loss of consciousness or concerns other than the laceration. I had seen Romero on the evening of the secondary of influenza immunization side effects and was released home at that time. He had complained of right hip pain but declined x-ray that morning secondary of it being more of an exacerbation of chronicity. No other major concerns have been in place and he seemingly improved after his side effects completely resolved and his denies any need of additional services or placement. Onset: Today, Sudden Duration: Minutes: Location: Reports: Head, Lower Extremity, Right Head Pain Score (Numeric/FACES): 4 - Related Data Allergies Allergy/AdvReac Type Severity Reaction Status Date / Time atorvastatin Allergy Diarrhea Verified 02/24/21 08:59 leuprolide [From Lupron] Allergy Itching Verified 02/24/21 08:59 Home Meds: Home Meds Aspirin [Adult Low Dose Aspirin EC] 81 mg PO DAILY 07/26/16 [History] Clopidogrel Bisulfate [Clopidogrel] 75 mg PO DAILY 07/26/16 [History] Sodium Bicarbonate 650 mg PO BID 07/26/16 [History] Acetaminophen 1,000 mg PO Q6H PRN 11/17/16 [History] Nitroglycerin 0.4 mg SL ASDIRECTED PRN 11/17/16 [History] Non-Formulary Medication [NF Drug] 1 applic TOP QID PRN 11/17/16 [History] Calcium Carbonate [Calcium Antacid] 750 mg PO ASDIRECTED PRN 10/08/18 [History] Mesal/Menth/Camph/Siberian Fir [Vicks Vapoinhaler] 1 each NS ASDIRECTED PRN 10/08/18 [History] oxyCODONE 5 mg PO BID PRN 10/08/18 [History] Fluticasone Propionate [Flonase] 1 sprays NS BID 09/15/19 [History] Pravastatin [Pravachol] 10 mg PO BEDTIME 09/15/19 [History] diphenhydrAMINE [Benadryl] 25 - 50 mg PO Q6H PRN 09/15/19 [History] Hydrocortisone [Proctozone-HC 2.5% Crm] 1 applic TOP BID PRN 01/14/20 [History] Calcium Carbonate/Vitamin D3 [Calcium 500 + Vit D 400] 1 each PO BID 01/07/21 [History] DULoxetine [Cymbalta] 60 mg PO DAILY 01/07/21 [History] polyethylene glycoL 3350 [MiraLAX] 17 gm PO DAILY PRN 01/07/21 [History] Darbepoetin Dillan in Polysorbat [Aranesp] 100 mcg IJ ASDIRECTED 01/13/21 [History] Diphenoxylate HCl/Atropine [Lomotil] 1 - 2 tab PO QID PRN 01/13/21 [History] hydrOXYzine pamoate [Vistaril] 25 mg PO Q6H PRN 01/13/21 [History] Ferrous Sulfate 325 mg PO DAILY 02/22/21 [History] Metoprolol Tartrate [Lopressor] 25 mg PO Q12HR 02/22/21 [History] Ceramides 1,3,6-11 [Cerave Daily Moisturizing] 1 applic TP DAILY PRN 02/24/21 [History] metroNIDAZOLE [Metronidazole] 1 applic TP ASDIRECTED PRN 02/24/21 [History] Past Medical History HEENT History: Reports: Allergic Rhinitis, Epistaxis, Hard of Hearing, Impaired Vision, Sinusitis, Other (See Below) Other HEENT History: injury to left side of face playing football with eye injury Cardiovascular History: Reports: Angina, CAD, High Cholesterol, Hypertension, DE, PVD, Other (See Below) Other Cardiovascular History: PVD Respiratory History: Reports: COPD, Pneumonia, Recurrent Gastrointestinal History: Reports: Chronic Diarrhea, Diverticulosis, Gastritis, GERD Other Gastrointestinal History: states that he has diarrhea from taking a statin Genitourinary History: Reports: Chronic Renal Insuffiency, Prostate Disorder (Prostate cancer having been treated with radiation and chemotherapy.) Other Genitourinary History: stage 3 kidney disease Musculoskeletal History: Reports: Arthritis, Back Pain, Chronic, Fracture, Osteoarthritis Neurological History: Reports: Head Trauma, Migraines Psychiatric History: Reports: Addiction, Depression Endocrine/Metabolic History: Reports: Vitamin D Deficiency Hematologic History: Reports: Anesthesia Reaction, B12 Deficiency, Blood Transfusion(s) Other Hematologic History: wakes up from anesthesia violently Immunologic History: Reports: Immunosuppression Oncologic (Cancer) History: Reports: Prostate - Infectious Disease History Infectious Disease History: Reports: Chicken Pox, Measles, Mumps - Past Surgical History Head Surgeries/Procedures: Reports: None HEENT Surgical History: Reports: Eye Surgery, Tonsillectomy Cardiovascular Surgical History: Reports: AAA Repair, Carotid Stents, Coronary Artery Bypass, Other (See Below) Other Cardiovascular Surgeries/Procedures: 4 stents to right iliac artery, 2 stents to left iliac artery GI Surgical History: Reports: Hernia, Inguinal Male Surgical History: Reports: Other (See Below) Other Male Surgeries/Procedures: stents to renal artery bilateral Neurological Surgical History: Reports: None Musculoskeletal Surgical History: Reports: Hip Replacement Other Musculoskeletal Surgeries/Procedures:: david hips Dermatological Surgical History: Reports: None Social & Family History - Family History Family Medical History: No Pertinent Family History - Caffeine Use Caffeine Use: Reports: Coffee, Soda, Tea ED ROS GENERAL - Review of Systems Review Of Systems: Comprehensive ROS is negative, except as noted in HPI. ED EXAM, GENERAL - Physical Exam Exam: See Below Free Text/Narrative:: Alert, oriented, and very cheerful today. HEENT shows a 2 cm total length scalp laceration to the calvarial region with bleeding controlled. It is flap-like and only 1 cm requiring attention for repair. PERRLA no icterus no injection. There is no tenderness other than at the site of the laceration. Neck is soft supple with no lymphadenopathy JVD or rigidity. Thorax is slightly diminished but clear. Cardiac is regular Abdomen soft nontender Tenderness to motion of the right hip chronic in nature but is still persistent after he declined an x-ray on the evening of the morning when seen here in the emergency department. At that time it was declined secondary of his painful symptoms as he did not want to be positioned as it was not the main source of concern. He denies loss of consciousness today his is present and states things are going well at home after he got over his fever episode and likely immunization sequela. ED GENERAL MEDICAL PROCEDURES - Laceration/Wound Repair Medial [place] Head Lac/wound length in cm: 2 Appearance: Subcutaneous, Clean Distal NVT: Neuro & Vascular Intact Anesthetic Type: Other (none) Skin Prep: Providone-Iodine (Betadine) Exploration/Debridement/Repair: Wound Explored, In a Bloodless Field Closed with: Anahi # of Sutures: 2 Sterile Dressing Applied: None Tetanus Status Addressed: Yes Complications: No Course - Vital Signs Last Recorded V/S: Last Vital Signs Temp 96.2 F L 02/24/21 08:51 Pulse 56 L 02/24/21 09:56 Resp 20 02/24/21 09:56 BP 137/52 L 02/24/21 09:56 Pulse Ox 98 02/24/21 09:56 - Orders/Labs/Meds Orders: Active Orders 24 hr Category Date Time Status COMPREHENSIVE METABOLIC PN,CMP [CHEM] Stat Lab 02/24/21 09:18 Results Labs: Laboratory Tests 02/24/21 02/24/21 Range/Units 09:18 09:18 WBC 1.35 L* (5.00-10.00) 10^3/uL RBC 2.21 L (4.50-6.00) 10^6/uL Hgb 7.5 L (13.0-17.0) g/dL Hct 24.2 L (40.0-52.0) % MCV 109.5 H D (82.0-92.0) fL MCH 33.9 H (27.0-31.0) pg MCHC 31.0 L (32.0-36.0) g/dL RDW 15.0 H (11.5-14.5) % Plt Count 161 (150-400) 10^3/uL MPV 9.1 (7.4-10.4) fL Immature Gran % (Auto) 0.7 (0.0-5.0) % Neut % (Auto) 30.3 L (50.0-70.0) % Lymph % (Auto) 23.7 (20.0-40.0) % Rabun % (Auto) 31.9 H (2.0-8.0) % Eos % (Auto) 11.9 H (1.0-3.0) % Baso % (Auto) 1.5 H (0.0-1.0) % Neut # (Auto) 0.41 L (2.50-7.00) 10^3/uL Lymph # (Auto) 0.32 L (1.00-4.00) 10^3/uL Rabun # (Auto) 0.43 (0.10-0.80) 10^3/uL Eos # (Auto) 0.16 (0.10-0.30) 10^3/uL Baso # (Auto) 0.02 (0.00-0.10) 10^3/uL Immature Gran # (Auto) 0.01 (0.00-0.50) 10^3/uL Platelet Estimate Adequate Poikilocytosis 1+ slight Anisocytosis 1+ slight Macrocytosis 1+ slight Elliptocytes 1+ slight Sodium 136 L (138-146) mmol/L Potassium 4.2 (3.5-4.5) mmol/L Chloride 105 (98-107) mmol/L Carbon Dioxide 24 (23-30) mmol/L Anion Gap 11.2 (7-16) mmol/L BUN 31 H (8-26) mg/dL Creatinine 2.54 H (0.51-1.19) mg/dL Est Cr Clr Drug Dosing 22.19 mL/min Estimated GFR (MDRD) 25 mL/min Glucose 99 (74-100) mg/dL Calcium 1.20 (1.15-1.33) mmol/l Meds: Medications Discontinued Medications Generic Name Dose Route Start Last Admin Trade Name Freq PRN Reason Stop Dose Admin Neomycin/Polymyxin/Bacitracin 1 each 02/24/21 09:43 02/24/21 09:48 Bacitracin/Neomycin/Polymyxin B Oint 0.9 Gm U/D Packet TOP 02/24/21 09:44 1 each ONETIME ONE Administration Neomycin/Polymyxin/Bacitracin Confirm 02/24/21 09:46 Bacitracin/Neomycin/Polymyxin B Oint 0.9 Gm U/D Packet Administered 02/24/21 09:47 Dose 1 each .ROUTE .STK-MED ONE - Re-Assessments/Exams Free Text/Narrative Re-Assessment/Exam: 02/24/21 10:45 At the time Romero went to x-ray leaving the emergency department, I discussed in detail with his if she was able to provide his care safely as she had difficulty the morning of the getting him back home into bed requiring her to call ambulance for assistance. She states that everything is fine and that he would never go to the jail. She also states that she has been able to provide his cares and that he is feeling much better now that the symptoms resolved that he is better able to assist and provide his own mobility. The issue this morning was just stay odd thing is he was trying to play with his cat. Departure - Departure Time of Disposition: 10:13 Disposition: Home, Self-Care 01 Condition: Fair Clinical Impression: Chronic hip pain after total replacement of right hip joint Scalp laceration Qualifiers: Encounter type: initial encounter Qualified Code(s): S01.01XA - Laceration without foreign body of scalp, initial encounter - Discharge Information *PRESCRIPTION DRUG MONITORING PROGRAM REVIEWED*: Not Applicable *COPY OF PRESCRIPTION DRUG MONITORING REPORT IN PATIENT TIKI: Not Applicable Instructions: Facial or Scalp Contusion, [id number], Laceration Care, Adult, [id number] Referrals: Veronica Judd MD [Physician] - Forms: ED Department Discharge Additional Instructions: Continue all your medications as directed. There is no evidence of fracture or injury occurring today. The right hip x-ray is not completely normal, but they do not see anything acute in nature. The recommendation would be if you continue to have discomfort with that as you state there has been some discomfort since the surgery, or if it worsens consideration for a CT of the hip would be given. Continue all your medications as directed. Ice to the affected area to control swelling. No soaking of your head/swimming or bobbing for apples on Halloween. You will need to have the anahi removed in 7 to 10 days at your discretion. You may go to your clinic where there may be a charge, or call the clinic in the hospital where they would be taken out with no additional charges incurred. Call or return if concerns develop. Sepsis Event Note (ED) - Evaluation Sepsis Screening Result: No Definite Risk - Focused Exam Vital Signs: Vital Signs Temp Pulse Resp BP Pulse Ox 02/24/21 09:56 56 L 20 137/52 L 98 02/24/21 09:04 71 20 123/50 L 98 02/24/21 08:51 96.2 F L 58 L 20 148/44 H 96 - Problem List & Annotations (1) Scalp laceration SNOMED Code(s): 686370064 Code(s): S01.01XA - LACERATION WITHOUT FOREIGN BODY OF SCALP, INITIAL ENCOUNTER Status: Acute Priority: High Qualifiers: Encounter type: initial encounter Qualified Code(s): S01.01XA - Laceration without foreign body of scalp, initial encounter (2) Chronic hip pain after total replacement of right hip joint SNOMED Code(s): 51188678223545663 Code(s): M25.551 - PAIN IN RIGHT HIP; G89.29 - OTHER CHRONIC PAIN; Z96.641 - PRESENCE OF RIGHT ARTIFICIAL HIP JOINT Status: Chronic Priority: Medium - Problem List Review Problem List Initiated/Reviewed/Updated: Yes - My Orders Last 24 Hours: My Active Orders 02/24/21 09:18 COMPREHENSIVE METABOLIC PN,CMP [CHEM] Stat - Assessment/Plan Last 24 Hours: My Active Orders 02/24/21 09:18 COMPREHENSIVE METABOLIC PN,CMP [CHEM] Stat Plan: Continue all your medications as directed. There is no evidence of fracture or injury occurring today. The right hip x-ray is not completely normal, but they do not see anything acute in nature. The recommendation would be if you continue to have discomfort with that as you state there has been some discomfort since the surgery, or if it worsens consideration for a CT of the hip would be given. Continue all your medications as directed. Ice to the affected area to control swelling. No soaking of your head/swimming or bobbing for apples on Halloween. You will need to have the anahi removed in 7 to 10 days at your discretion. You may go to your clinic where there may be a charge, or call the clinic in the hospital where they would be taken out with no additional charges incurred. Call or return if concerns develop.
[2021-02-24 09:30] LABS: ANION GAP 11.2 mmol/L (7-16)
[2021-02-24] MEDS ORDERED: Bacitracin/Neomycin/Polymyxin B Oint 0.9 GM U/D Packet TOP ONE (09:43)
[2021-02-24] MEDS ORDERED: Bacitracin/Neomycin/Polymyxin B Oint 0.9 GM U/D Packet ONE (09:46)
[2021-02-24 09:56] VITALS: BP 137/52; PULSE 56
--- NOTE | 2021-02-24 10:04 | CT ---
[id number] CT/CT Head WO IV EXAM: CT Head WO IV CLINICAL DATA: TRAUMA ANTICOAGULATED PATIENT COMPARISON: No previous similar exam is available for comparison. FINDINGS: There is no mass or mass effect. There is no hemorrhage or hydrocephalus. There are no extra-axial fluid collections. There are no sites of abnormal attenuation. IMPRESSION: NO PLAIN CT EVIDENCE OF ACUTE INTRACRANIAL PROCESS. Reji Sheridan MD 02/24/21 [id number] Thank you for allowing us to participate in the care of your patient.
--- NOTE | 2021-02-24 10:05 | CR ---
[id number] RAD/RAD Pelvis 1V W 2V Right Hip Exam: RAD Pelvis 1V W 2V Right Hip Clinical Data: TRAUMA COMPARISON: NO PREVIOUS SIMILAR EXAM IS AVAILABLE FINDINGS: Bilateral iliac extension is seen Bilateral hip prostheses are identified There is no fracture or dislocation IMPRESSION: NO OBVIOUS FRACTURE OR DISLOCATION SLIGHTLY ASYMMETRIC APPEARANCE OF RIGHT HIP IF SYMPTOMS PERSIST, CONSIDER A LATERAL VIEW OF THE RIGHT HIP Reji Sheridan MD 02/24/21 1032 Thank you for allowing us to participate in the care of your patient.
== END 2021-02-24 10:24 | disposition home or self-care (01) ==
LOC: KA.ED 08:44
DX: S01.01XA Laceration without foreign body of scalp, initial encounter (principal); G89.29 Other chronic pain; M25.551 Pain in right hip; I25.119 Atherosclerotic heart disease of native coronary artery with unspecified angina pectoris; E78.00 Pure hypercholesterolemia, unspecified; I12.9 Hypertensive chronic kidney disease with stage 1 through stage 4 chronic kidney disease, or unspecified chronic kidney disease; N18.9 Chronic kidney disease, unspecified; I25.2 Old myocardial infarction; J44.9 Chronic obstructive pulmonary disease, unspecified; K21.9 Gastro-esophageal reflux disease without esophagitis; M19.90 Unspecified osteoarthritis, unspecified site; Z95.1 Presence of aortocoronary bypass graft; Z79.82 Long term (current) use of aspirin; Z79.02 Long term (current) use of antithrombotics/antiplatelets; Z79.899 Other long term (current) drug therapy; Z96.651 Presence of right artificial knee joint; W01.190A Fall on same level from slipping, tripping and stumbling with subsequent striking against furniture, initial encounter
CPT/HCPCS: 12001; 36415; 70450; 80053; 85025; 99284-25

== ENCOUNTER 2022-02-13 16:14 | Inpatient (IN) | payer MEDICARE, BC ==
[2022-02-13] MEDS ORDERED: Sodium Chloride 0.9% 10 ML Syringe IV PRN (16:54)
[2022-02-13] MEDS ORDERED: Morphine 2 MG/ML SYRINGE IVPUSH ONE (17:05)
[2022-02-13] MEDS ORDERED: cefTRIAXone 1 GM Vial IVPUSH ONE (17:06)
[2022-02-13] MEDS ORDERED: DULoxetine 30 MG Cap PO ONE (18:35)
[2022-02-14] MEDS ORDERED: oxyCODONE 5 MG Tab PO ONE (07:30)
[2022-02-14] MEDS ORDERED: Clopidogrel 75 MG Tab PO ONE (09:00)
[2022-02-14] MEDS ORDERED: Atenolol 25 MG Tab PO ONE (09:00)
[2022-02-14] MEDS ORDERED: Enoxaparin 30 MG/0.3 ML Syringe SUBCUT ONE (13:25)
[2022-02-14] MEDS ORDERED: ceFAZolin 1 GM in Sodium Chloride 0.9% 100 ML IV ONE (13:25)
[2022-02-15] MEDS ORDERED: Sodium Chloride 0.9% 50 ML IV ONE (01:10)
[2022-03-03 13:03] LABS: ANION GAP 13.9 mmol/L (5-15); CHLORIDE,CL 102 mmol/L (98-115); SODIUM,NA 135 mmol/L (136-145)
[2022-03-03 13:04] LABS: ESTIMATED GFR 30 mL/min (>=60)
[2022-03-05 11:01] LABS: ANION GAP 13.6 mmol/L (5-15); CHLORIDE,CL 102 mmol/L (98-115); ESTIMATED GFR 32 mL/min (>=60); SODIUM,NA 135 mmol/L (136-145)
[2022-03-05 11:49] LABS: ANION GAP 11.6 mmol/L (5-15); CHLORIDE,CL 104 mmol/L (98-115); SODIUM,NA 135 mmol/L (136-145)
[2022-03-05 11:50] LABS: ESTIMATED GFR 33 mL/min (>=60)
== END 2022-02-16 13:46 | disposition home or self-care (01) | DRG 603 ==
LOC: KA.ZCENSUS 16:14
PROVIDERS: ADMIT Nurse Practitioner Family; ATTEND Student in an Organized Health Care Education/Training Program
DX: L03.115 Cellulitis of right lower limb (principal); E87.1 Hypo-osmolality and hyponatremia; F33.9 Major depressive disorder, recurrent, unspecified; N18.4 Chronic kidney disease, stage 4 (severe); E88.09 Other disorders of plasma-protein metabolism, not elsewhere classified; Z66 Do not resuscitate; R53.81 Other malaise; I25.10 Atherosclerotic heart disease of native coronary artery without angina pectoris; I73.9 Peripheral vascular disease, unspecified; J44.9 Chronic obstructive pulmonary disease, unspecified; D63.1 Anemia in chronic kidney disease; I12.9 Hypertensive chronic kidney disease with stage 1 through stage 4 chronic kidney disease, or unspecified chronic kidney disease; N18.9 Chronic kidney disease, unspecified; K21.9 Gastro-esophageal reflux disease without esophagitis; Z87.19 Personal history of other diseases of the digestive system; Z85.46 Personal history of malignant neoplasm of prostate
CPT/HCPCS: 36415; 80048; 80053; 83605; 85025; 86140; A9270-GY; J0690; J0696; J1650; J2270; J3370; J7050

== ENCOUNTER 2022-04-29 11:59 | Emergency (ER) | payer MEDICARE, BC ==
[2022-04-29 12:17] VITALS: BP 153/64; PULSE 56
[2022-04-29] MEDS ORDERED: cefTRIAXone 1 GM Vial IVPUSH ONE (12:26)
[2022-04-29] MEDS ORDERED: Sodium Chloride 0.9% 10 ML Syringe FLUSH PRN (12:33)
[2022-04-29] MEDS ORDERED: Cephalexin 250 MG Cap PO ONE (12:40)
== END 2022-04-29 13:05 | disposition home or self-care (01) ==
LOC: KA.ED 11:59
DX: L03.031 Cellulitis of right toe (principal); I73.9 Peripheral vascular disease, unspecified; I25.10 Atherosclerotic heart disease of native coronary artery without angina pectoris; E78.00 Pure hypercholesterolemia, unspecified; I10 Essential (primary) hypertension; I25.2 Old myocardial infarction; J44.9 Chronic obstructive pulmonary disease, unspecified; Z88.8 Allergy status to other drugs, medicaments and biological substances; Z79.82 Long term (current) use of aspirin; Z79.02 Long term (current) use of antithrombotics/antiplatelets
CPT/HCPCS: 96374; 99283-25; 99284; A9270-GY; J0696; J3490

== ENCOUNTER 2023-03-13 01:56 | Emergency (ER) | payer MEDICARE, BC ==
[2023-03-13] MEDS ORDERED: Sodium Chloride 0.9% 10 ML Syringe FLUSH PRN (02:08)
[2023-03-13] MEDS ORDERED: Sodium Chloride 0.9% 1,000 ML IV ONE (02:20)
[2023-03-13] MEDS ORDERED: Ondansetron 4 MG/2 ML SDV IVPUSH ONE (02:20)
[2023-03-13 05:49] VITALS: BP 120/52; PULSE 87
== END 2023-03-13 03:48 | disposition home or self-care (01) ==
LOC: SUPCPDRO 01:56 → KA.ED 01:56
DX: E86.0 Dehydration (principal); R11.0 Nausea; I25.10 Atherosclerotic heart disease of native coronary artery without angina pectoris; I10 Essential (primary) hypertension; J44.9 Chronic obstructive pulmonary disease, unspecified; E78.00 Pure hypercholesterolemia, unspecified; Z79.82 Long term (current) use of aspirin; Z79.899 Other long term (current) drug therapy; Z88.8 Allergy status to other drugs, medicaments and biological substances
CPT/HCPCS: 96361; 96374; 99284; 99285-25; J2405; J3490; J7030

== ENCOUNTER 2023-09-09 20:41 | Emergency (ER) | payer MEDICARE, BC ==
[2023-09-09] MEDS: Ondansetron 4 MG/2 ML SDV IVPUSH ONE (21:37)
[2023-09-09] MEDS: HYDROmorphone 1 MG/ML Syringe IM ONE (21:38)
[2023-09-09 23:22] VITALS: PULSE 85
[2023-09-09 23:23] VITALS: BP 150/79
== END 2023-09-09 21:58 | disposition home or self-care (01) ==
LOC: KA.ED 20:41
DX: I73.9 Peripheral vascular disease, unspecified (principal); L97.521 Non-pressure chronic ulcer of other part of left foot limited to breakdown of skin; L97.421 Non-pressure chronic ulcer of left heel and midfoot limited to breakdown of skin; L97.511 Non-pressure chronic ulcer of other part of right foot limited to breakdown of skin; I10 Essential (primary) hypertension; I25.10 Atherosclerotic heart disease of native coronary artery without angina pectoris; I25.2 Old myocardial infarction; E78.00 Pure hypercholesterolemia, unspecified; J44.9 Chronic obstructive pulmonary disease, unspecified; Z88.8 Allergy status to other drugs, medicaments and biological substances; Z79.82 Long term (current) use of aspirin; Z79.02 Long term (current) use of antithrombotics/antiplatelets; Z79.899 Other long term (current) drug therapy
CPT/HCPCS: 96372; 96374; 99284; 99284-25; J1170; J2405

== ENCOUNTER 2023-09-12 20:57 | Emergency (ER) | payer MEDICARE, BC ==
[2023-09-12] MEDS ORDERED: Naloxone 0.4 MG/ML SDV IVPUSH PRN (21:14)
[2023-09-12] MEDS: HYDROmorphone 1 MG/ML Syringe IM ONE (21:19)
[2023-09-13 05:43] VITALS: BP 140/70; PULSE 80
== END 2023-09-12 21:47 | disposition home or self-care (01) ==
LOC: KA.ED 20:57
DX: G89.4 Chronic pain syndrome (principal); I25.10 Atherosclerotic heart disease of native coronary artery without angina pectoris; E78.00 Pure hypercholesterolemia, unspecified; I25.2 Old myocardial infarction; J44.9 Chronic obstructive pulmonary disease, unspecified; I12.9 Hypertensive chronic kidney disease with stage 1 through stage 4 chronic kidney disease, or unspecified chronic kidney disease; N18.4 Chronic kidney disease, stage 4 (severe); Z79.899 Other long term (current) drug therapy; Z79.83 Long term (current) use of bisphosphonates; Z79.82 Long term (current) use of aspirin; Z88.8 Allergy status to other drugs, medicaments and biological substances; Z86.19 Personal history of other infectious and parasitic diseases; Z95.1 Presence of aortocoronary bypass graft
CPT/HCPCS: 96372; 99283; 99284; J1170

== ENCOUNTER 2023-10-01 13:10 | Inpatient (IN) | payer MEDICARE, BC ==
[2023-10-01] MEDS ORDERED: Polyethylene Glycol 3350 Powder 17 GM Packet PO PRN (13:59)
[2023-10-01] MEDS ORDERED: OLANZapine 5 MG Tab PO PRN (14:06)
[2023-10-01] MEDS ORDERED: Fluticasone NASAL Spray 16 GM Bottle NASBOTH PRN (14:06)
[2023-10-01] MEDS ORDERED: CERAMIDES TP PRN (14:06)
[2023-10-01] MEDS ORDERED: [UNRECOGNIZED DRUG - OTHER] TP PRN (14:06)
[2023-10-01] MEDS ORDERED: BENZOCAINE MM PRN (14:06)
[2023-10-01] MEDS ORDERED: [UNRECOGNIZED DRUG - OTHER] MM PRN (14:06)
[2023-10-01] MEDS ORDERED: MENTHOL MM PRN (14:06)
[2023-10-01] MEDS: oxyCODONE 5 MG Tab PO PRN ×2 (14:42→20:16)
[2023-10-01] MEDS ORDERED: oxyCODONE 5 MG Tab PO PRN (19:55)
[2023-10-01] MEDS: Ticagrelor 90 MG Tab PO SCH (20:17)
[2023-10-01] MEDS: Acetaminophen 500 MG Tab PO SCH (20:17)
[2023-10-01] MEDS: Heparin Sodium 5,000 Units/ML Vial SUBCUT SCH (20:17)
[2023-10-01] MEDS: DULoxetine 30 MG Cap PO SCH (20:17)
[2023-10-01] MEDS: Sennosides/Docusate Sodium 50-8.6 MG Tab PO SCH (20:17)
[2023-10-01] MEDS ORDERED: Pravastatin 20 MG Tab PO SCH (21:00)
[2023-10-01] MEDS: Simvastatin 10 MG Tab PO SCH (21:18)
[2023-10-02 07:33] LABS: HEMATOCRIT 26.2 % (40.0-52.0); HEMOGLOBIN 8.2 g/dL (13.0-17.0); MEAN CORPUSCULAR HEMOGLOBIN 31.5 pg (27.0-31.0); MEAN CORPUSCULAR HGB CONC 31.3 g/dL (32.0-36.0); MEAN CORPUSCULAR VOLUME 100.8 fL (82.0-92.0); MEAN PLATELET VOLUME 9.5 fL (7.4-10.4); PLATELET COUNT,PLT 341 10^3/uL (150-400); RED CELL DISTRIBUTION WIDTH 19.1 % (11.5-14.5); WHITE BLOOD CELL COUNT,WBC 8.16 10^3/uL (5.00-10.00)
[2023-10-02 07:53] LABS: ALBUMIN 2.14 g/dL (3.40-5.00); ANION GAP 16.2 mmol/L (5-15); BILIRUBIN TOTAL 0.5 mg/dL (0.2-1.0); CALCIUM 8.7 mg/dL (8.7-10.3); CARBON DIOXIDE,CO2 24.2 mmol/L (21.0-32.0); CREATININE 1.57 mg/dL (0.51-1.17); EST CRCL DRUG DOSING (CG) 36.84 mL/min; POTASSIUM,K 4.4 mmol/L (3.5-5.1); PROTEIN TOTAL,TP 7.3 g/dL (6.4-8.2)
[2023-10-02] MEDS: Aspirin 81 MG Tab.EC PO SCH (08:55)
[2023-10-02] MEDS: Ferrous Sulfate 325 MG Tab PO SCH (08:56)
[2023-10-02] MEDS: Sodium Bicarbonate 650 MG Tab PO SCH (08:56)
[2023-10-02] MEDS: Atenolol 25 MG Tab PO SCH (08:58)
[2023-10-02] MEDS ORDERED: Haloperidol Lactate 5 MG/ML SDV IM PRN (10:36)
[2023-10-02] MEDS: risperiDONE 1 MG Tab PO SCH (10:43)
[2023-10-02] MEDS: Doxycycline Monohydrate 100 MG Cap PO SCH (15:31)
[2023-10-02] MEDS: Enoxaparin 30 MG/0.3 ML Syringe SUBCUT SCH (21:48)
[2023-10-02] MEDS: traMADol 50 MG Tab PO PRN (23:06)
[2023-10-03] MEDS: Ascorbic Acid 500 MG Tab PO SCH (08:45)
[2023-10-03 11:54] LABS: HEMATOCRIT 22.7 % (40.0-52.0); HEMOGLOBIN 7.3 g/dL (13.0-17.0); MEAN CORPUSCULAR HGB CONC 32.2 g/dL (32.0-36.0); MEAN CORPUSCULAR VOLUME 99.6 fL (82.0-92.0); MEAN PLATELET VOLUME 9.4 fL (7.4-10.4); PLATELET COUNT,PLT 335 10^3/uL (150-400); RED BLOOD CELL COUNT 2.28 10^6/uL (4.50-6.00); RED CELL DISTRIBUTION WIDTH 19.2 % (11.5-14.5); WHITE BLOOD CELL COUNT,WBC 7.74 10^3/uL (5.00-10.00)
[2023-10-03 12:10] LABS: ALBUMIN 2.23 g/dL (3.40-5.00); BILIRUBIN TOTAL 0.7 mg/dL (0.2-1.0); CARBON DIOXIDE,CO2 22.7 mmol/L (21.0-32.0); CREATININE 1.51 mg/dL (0.51-1.17); EST CRCL DRUG DOSING (CG) 38.3 mL/min; MAGNESIUM 1.9 mg/dL (1.8-2.4); POTASSIUM,K 3.7 mmol/L (3.5-5.1); PROTEIN TOTAL,TP 7.3 g/dL (6.4-8.2)
[2023-10-03 12:33] LABS: SEG NEUTROPHILS PERCENT MAN 66 % (50-70)
[2023-10-03 12:34] LABS: BASOPHILS PERCENT MAN 1 % (0-1); EOSINOPHILS PERCENT MAN 2 % (1-3); LYMPHOCYTES PERCENT MAN 11 % (20-40); MONOCYTES PERCENT MAN 20 % (2-8)
[2023-10-03] MEDS: Menthol Lozenge MUCMEM PRN (21:57)
[2023-10-04] MEDS: risperiDONE 1 MG Tab PO ONE (00:51)
[2023-10-04 08:04] LABS: HEMATOCRIT 23.3 % (40.0-52.0); HEMOGLOBIN 7.3 g/dL (13.0-17.0); MEAN CORPUSCULAR HEMOGLOBIN 31.6 pg (27.0-31.0); MEAN CORPUSCULAR HGB CONC 31.3 g/dL (32.0-36.0); MEAN CORPUSCULAR VOLUME 100.9 fL (82.0-92.0); MEAN PLATELET VOLUME 9.5 fL (7.4-10.4); PLATELET COUNT,PLT 370 10^3/uL (150-400); RED BLOOD CELL COUNT 2.31 10^6/uL (4.50-6.00); RED CELL DISTRIBUTION WIDTH 19.3 % (11.5-14.5); WHITE BLOOD CELL COUNT,WBC 7.57 10^3/uL (5.00-10.00)
[2023-10-04 08:18] LABS: ANION GAP 16.8 mmol/L (5-15); CALCIUM 9.1 mg/dL (8.7-10.3); CARBON DIOXIDE,CO2 23.2 mmol/L (21.0-32.0); CREATININE 1.48 mg/dL (0.51-1.17); EST CRCL DRUG DOSING (CG) 39.08 mL/min; MAGNESIUM 1.9 mg/dL (1.8-2.4)
[2023-10-04] MEDS: risperiDONE 1 MG Tab PO SCH (09:00)
[2023-10-04 09:27] LABS: BAND PERCENT MAN 5 % (4-12); BASOPHILS PERCENT MAN 0 % (0-1); EOSINOPHILS PERCENT MAN 3 % (1-3); LYMPHOCYTES PERCENT MAN 5 % (20-40); MONOCYTES PERCENT MAN 21 % (2-8); SEG NEUTROPHILS PERCENT MAN 66 % (50-70)
[2023-10-04 11:37] LABS: HEMATOCRIT 24.5 % (40.0-52.0); HEMOGLOBIN 7.6 g/dL (13.0-17.0); MEAN CORPUSCULAR HEMOGLOBIN 31.5 pg (27.0-31.0); MEAN CORPUSCULAR VOLUME 101.7 fL (82.0-92.0); MEAN PLATELET VOLUME 9.5 fL (7.4-10.4); PLATELET COUNT,PLT 412 10^3/uL (150-400); RED BLOOD CELL COUNT 2.41 10^6/uL (4.50-6.00); RED CELL DISTRIBUTION WIDTH 19.3 % (11.5-14.5); WHITE BLOOD CELL COUNT,WBC 7.58 10^3/uL (5.00-10.00)
[2023-10-04 11:58] LABS: C-REACTIVE PROTEIN 9.33 mg/dL (0.00-0.50); CALCIUM 9.3 mg/dL (8.7-10.3); CREATININE 1.5 mg/dL (0.51-1.17); EST CRCL DRUG DOSING (CG) 38.56 mL/min; MAGNESIUM 1.9 mg/dL (1.8-2.4)
[2023-10-04 12:25] LABS: BAND PERCENT MAN 6 % (4-12); BASOPHILS PERCENT MAN 0 % (0-1); EOSINOPHILS PERCENT MAN 1 % (1-3); MONOCYTES PERCENT MAN 22 % (2-8)
[2023-10-04 12:26] LABS: LYMPHOCYTES PERCENT MAN 6 % (20-40); SEG NEUTROPHILS PERCENT MAN 65 % (50-70)
[2023-10-04] MEDS: Nitroglycerin 0.4 MG Tab.SL SL PRN (19:18)
[2023-10-04] MEDS ORDERED: Naloxone 0.4 MG/ML SDV IVPUSH PRN (19:27)
[2023-10-04] MEDS ORDERED: Sodium Chloride 0.9% 10 ML Syringe FLUSH PRN (19:30)
[2023-10-04] MEDS: Morphine 2 MG/ML SYRINGE IVPUSH PRN (19:34)
[2023-10-04] MEDS: Morphine 2 MG/ML SYRINGE ONE (19:36)
[2023-10-04] MEDS: Ondansetron 4 MG/2 ML SDV IVPUSH PRN (19:40)
[2023-10-04 19:46] LABS: HEMATOCRIT 22.9 % (40.0-52.0); HEMOGLOBIN 7.3 g/dL (13.0-17.0)
[2023-10-04] MEDS: Ondansetron 4 MG/2 ML SDV ONE (19:58)
[2023-10-05] MEDS: oxyCODONE 5 MG Tab PO PRN ×2 (01:47→04:43)
[2023-10-05] MEDS ORDERED: Morphine 4 MG/ML Syringe IVPUSH PRN (04:06)
[2023-10-05 08:57] LABS: HEMATOCRIT 21.8 % (40.0-52.0); MEAN CORPUSCULAR HEMOGLOBIN 31.6 pg (27.0-31.0); MEAN CORPUSCULAR HGB CONC 31.2 g/dL (32.0-36.0); MEAN CORPUSCULAR VOLUME 101.4 fL (82.0-92.0); MEAN PLATELET VOLUME 9.5 fL (7.4-10.4); PLATELET COUNT,PLT 371 10^3/uL (150-400); RED BLOOD CELL COUNT 2.15 10^6/uL (4.50-6.00); RED CELL DISTRIBUTION WIDTH 19.7 % (11.5-14.5); WHITE BLOOD CELL COUNT,WBC 5.26 10^3/uL (5.00-10.00)
[2023-10-05 09:05] LABS: HEMOGLOBIN 6.8 g/dL (13.0-17.0)
[2023-10-05 09:12] LABS: ALBUMIN 2.2 g/dL (3.40-5.00); ANION GAP 15.3 mmol/L (5-15); BILIRUBIN TOTAL 0.5 mg/dL (0.2-1.0); C-REACTIVE PROTEIN 8.03 mg/dL (0.00-0.50); CALCIUM 8.9 mg/dL (8.7-10.3); CARBON DIOXIDE,CO2 23.4 mmol/L (21.0-32.0); CREATININE 1.79 mg/dL (0.51-1.17); EST CRCL DRUG DOSING (CG) 32.31 mL/min; MAGNESIUM 1.9 mg/dL (1.8-2.4); POTASSIUM,K 3.7 mmol/L (3.5-5.1); PROTEIN TOTAL,TP 7.2 g/dL (6.4-8.2)
[2023-10-05 09:30] LABS: BAND PERCENT MAN 4 % (4-12); BASOPHILS PERCENT MAN 1 % (0-1); EOSINOPHILS PERCENT MAN 3 % (1-3); LYMPHOCYTES PERCENT MAN 10 % (20-40); MONOCYTES PERCENT MAN 25 % (2-8); SEG NEUTROPHILS PERCENT MAN 57 % (50-70)
[2023-10-05 11:21] LABS: APPEARANCE,URINE CLEAR (CLEAR); BILIRUBIN,URINE NEGATIVE (NEGATIVE); COLOR,URINE YELLOW (YELLOW); GLUCOSE,URINE NEGATIVE (NEGATIVE); KETONES,URINE NEGATIVE (NEGATIVE); LEUKOCYTE ESTERASE,URINE NEGATIVE (NEGATIVE); NITRITE,URINE NEGATIVE (NEGATIVE); OCCULT BLOOD,URINE NEGATIVE (NEGATIVE); PH,URINE 5.5 (5.0-9.0); PROTEIN,URINE 30 mg/dL (NEGATIVE)
[2023-10-05 11:29] LABS: BACTERIA,URINE RARE /HPF (NONE TO FEW); EPITHELIAL CELLS,URINE RARE /LPF; RBC,URINE 0-5 /HPF (0-5); WBC,URINE 0-5 /HPF (0-5)
[2023-10-05 15:16] VITALS: BP 170/75; PULSE 104
[2023-10-05] MEDS ORDERED: Furosemide 40 MG/4 ML VIAL IVPUSH SCH (17:00)
== END 2023-10-05 16:00 | DRG 948 ==
LOC: KA.MS 13:10
PROVIDERS: ADMIT Internal Medicine; ATTEND Internal Medicine
DX: R53.81 Other malaise (principal); D84.9 Immunodeficiency, unspecified; I13.0 Hypertensive heart and chronic kidney disease with heart failure and stage 1 through stage 4 chronic kidney disease, or unspecified chronic kidney disease; Z66 Do not resuscitate; I25.10 Atherosclerotic heart disease of native coronary artery without angina pectoris; H91.90 Unspecified hearing loss, unspecified ear; H54.7 Unspecified visual loss; E78.00 Pure hypercholesterolemia, unspecified; J44.9 Chronic obstructive pulmonary disease, unspecified; K59.09 Other constipation; K52.9 Noninfective gastroenteritis and colitis, unspecified; K21.9 Gastro-esophageal reflux disease without esophagitis; M19.90 Unspecified osteoarthritis, unspecified site; F32.A Depression, unspecified; Z96.643 Presence of artificial hip joint, bilateral; G89.4 Chronic pain syndrome; N18.32 Chronic kidney disease, stage 3b; D63.1 Anemia in chronic kidney disease; I50.9 Heart failure, unspecified; Z89.421 Acquired absence of other right toe(s); Z95.5 Presence of coronary angioplasty implant and graft; I25.2 Old myocardial infarction; Z88.8 Allergy status to other drugs, medicaments and biological substances; Z79.82 Long term (current) use of aspirin; Z79.899 Other long term (current) drug therapy; Z98.890 Other specified postprocedural states; Z87.01 Personal history of pneumonia (recurrent); Z87.81 Personal history of (healed) traumatic fracture; Z90.89 Acquired absence of other organs; Z95.1 Presence of aortocoronary bypass graft; Z95.828 Presence of other vascular implants and grafts; Z89.422 Acquired absence of other left toe(s)
CPT/HCPCS: 36415; 71045; 73700-LT; 80048; 80053; 81001; 82728; 83540; 83550; 83605; 83735; 83880; 84145; 84484; 85014; 85018; 85025; 85027; 85652; 86140; 93005; A9270-GY; J1644; J1650; J2270; J2405; Q3014

== ENCOUNTER 2023-10-16 10:14 | Inpatient (IN) | payer MEDICARE, BC ==
[2023-10-16] MEDS ORDERED: Polyethylene Glycol 3350 Powder 17 GM Packet PO PRN (14:38)
[2023-10-16] MEDS ORDERED: Nitroglycerin 0.4 MG Tab.SL SL PRN (14:38)
[2023-10-16] MEDS ORDERED: [UNRECOGNIZED DRUG - OTHER] PO PRN (14:38)
[2023-10-16] MEDS ORDERED: CERAMIDES TP PRN (14:38)
[2023-10-16] MEDS ORDERED: [UNRECOGNIZED DRUG - OTHER] TP PRN (14:38)
[2023-10-16] MEDS ORDERED: Ondansetron 4 MG Tab.DIS PO PRN (14:42)
[2023-10-16] MEDS ORDERED: Docusate Sodium 100 MG Cap PO PRN (14:42)
[2023-10-16] MEDS ORDERED: Acetaminophen 325 MG Tab PO PRN (14:42)
[2023-10-16] MEDS ORDERED: HEPARIN SODIUM IV SCH (14:45)
[2023-10-16] MEDS ORDERED: [UNRECOGNIZED DRUG - OTHER] IV SCH (14:45)
[2023-10-16] MEDS ORDERED: SODIUM CHLORIDE 0.9% IV SCH (14:45)
[2023-10-16] MEDS ORDERED: [UNRECOGNIZED DRUG - OTHER] IV SCH (14:45)
[2023-10-16 14:55] LABS: BASOPHILS ABSOLUTE AUTO 0.05 10^3/uL (0.00-0.10); BASOPHILS PERCENT AUTO 0.6 % (0.0-1.0); EOSINOPHILS ABSOLUTE AUTO 0.18 10^3/uL (0.10-0.30); HEMATOCRIT 31.4 % (40.0-52.0); HEMOGLOBIN 10.2 g/dL (13.0-17.0); IMMATURE GRAN ABSOLUTE AUTO 0.57 10^3/uL (0.00-0.50); IMMATURE GRAN PERCENT AUTO 6.4 % (0.0-5.0); LYMPHOCYTES ABSOLUTE AUTO 0.47 10^3/uL (1.00-4.00); LYMPHOCYTES PERCENT AUTO 5.3 % (20.0-40.0); MEAN CORPUSCULAR HEMOGLOBIN 31.2 pg (27.0-31.0); MEAN CORPUSCULAR HGB CONC 32.5 g/dL (32.0-36.0); MEAN PLATELET VOLUME 9.6 fL (7.4-10.4); MONOCYTES ABSOLUTE AUTO 2.14 10^3/uL (0.10-0.80); MONOCYTES PERCENT AUTO 23.9 % (2.0-8.0); NEUTROPHILS ABSOLUTE AUTO 5.53 10^3/uL (2.50-7.00); NEUTROPHILS PERCENT AUTO 61.8 % (50.0-70.0); PLATELET COUNT,PLT 322 10^3/uL (150-400); RED BLOOD CELL COUNT 3.27 10^6/uL (4.50-6.00); RED CELL DISTRIBUTION WIDTH 19.1 % (11.5-14.5); WHITE BLOOD CELL COUNT,WBC 8.94 10^3/uL (5.00-10.00)
[2023-10-16 15:16] LABS: ALANINE AMINOTRANSFERASE,ALT 25 U/L (14-63); ALBUMIN 2.62 g/dL (3.40-5.00); ALKALINE PHOSPHATASE 90 U/L (46-116); ANION GAP 17.4 mmol/L (5-15); ASPARTATE AMNIOTRANSFERASE,AST 30 U/L (15-37); BILIRUBIN TOTAL 0.6 mg/dL (0.2-1.0); BLOOD UREA NITROGEN,BUN 25 mg/dL (7-18); CALCIUM 9.7 mg/dL (8.7-10.3); CHLORIDE,CL 99 mmol/L (98-107); CREATININE 1.85 mg/dL (0.51-1.17); GLUCOSE RANDOM 151 mg/dL (70-140); MAGNESIUM 1.9 mg/dL (1.8-2.4); POTASSIUM,K 4.4 mmol/L (3.5-5.1); PROTEIN TOTAL,TP 8.2 g/dL (6.4-8.2); SODIUM,NA 133 mmol/L (136-145)
[2023-10-16 15:17] LABS: ESTIMATED GFR 37 mL/min (>=60)
[2023-10-16] MEDS: Bumetanide 1 MG Tab PO SCH (15:56)
[2023-10-16 16:58] LABS: HEMOGLOBIN A1C 6.6 % (4.3-5.7)
[2023-10-16] MEDS: Menthol Lozenge PO PRN (18:37)
[2023-10-16] MEDS: Acetaminophen 500 MG Tab PO SCH (21:16)
[2023-10-16] MEDS: metroNIDAZOLE 500 MG Tab PO SCH (21:16)
[2023-10-16] MEDS: DULoxetine 30 MG Cap PO SCH (21:17)
[2023-10-16] MEDS: oxyCODONE 5 MG Tab PO PRN (21:19)
[2023-10-16] MEDS: amLODIPine 5 MG Tab PO SCH (21:19)
[2023-10-16] MEDS: Apixaban 5 MG Tab PO SCH (21:19)
[2023-10-16] MEDS: risperiDONE 1 MG Tab PO SCH (21:19)
[2023-10-16] MEDS: Metoprolol Tartrate 25 MG Tab PO SCH (21:20)
[2023-10-16] MEDS: Melatonin 3 MG Tab PO PRN (21:20)
[2023-10-17 07:27] LABS: HEMATOCRIT 30.1 % (40.0-52.0); HEMOGLOBIN 9.8 g/dL (13.0-17.0); MEAN CORPUSCULAR HEMOGLOBIN 30.8 pg (27.0-31.0); MEAN CORPUSCULAR HGB CONC 32.6 g/dL (32.0-36.0); MEAN CORPUSCULAR VOLUME 94.7 fL (82.0-92.0); MEAN PLATELET VOLUME 9.9 fL (7.4-10.4); PLATELET COUNT,PLT 298 10^3/uL (150-400); RED BLOOD CELL COUNT 3.18 10^6/uL (4.50-6.00); RED CELL DISTRIBUTION WIDTH 18.8 % (11.5-14.5); WHITE BLOOD CELL COUNT,WBC 6.78 10^3/uL (5.00-10.00)
[2023-10-17] MEDS ORDERED: Sodium Chloride 0.9% 10 ML Syringe FLUSH PRN (07:51)
[2023-10-17] MEDS: cefTRIAXone 2 GM Vial IVPUSH SCH (08:48)
[2023-10-17 09:13] LABS: BAND PERCENT MAN 12 % (4-12); BASOPHILS PERCENT MAN 1 % (0-1); EOSINOPHILS PERCENT MAN 4 % (1-3); LYMPHOCYTES PERCENT MAN 9 % (20-40)
[2023-10-17 09:14] LABS: MONOCYTES PERCENT MAN 35 % (2-8); SEG NEUTROPHILS PERCENT MAN 39 % (50-70)
[2023-10-17] MEDS: Ferrous Sulfate 325 MG Tab PO SCH (11:01)
[2023-10-17] MEDS: Clopidogrel 75 MG Tab PO SCH (11:01)
[2023-10-17] MEDS: Ascorbic Acid 500 MG Tab PO SCH (11:01)
[2023-10-17] MEDS: Multivitamins with Minerals/Iron/Folic Acid/Lycopene Tab PO SCH (11:01)
[2023-10-17] MEDS: Sodium Bicarbonate 650 MG Tab PO SCH (11:02)
[2023-10-17] MEDS: Metoprolol Succinate 50 MG Tab.ER PO SCH (11:19)
[2023-10-17] MEDS: Biotin/Folic Acid/Vitamin C/Vitamin B Complex Tab PO SCH (14:56)
[2023-10-17] MEDS: Sodium Chloride 0.9% 10 ML Syringe FLUSH SCH (18:05)
[2023-10-17] MEDS: Pravastatin 20 MG Tab PO SCH (21:41)
[2023-10-18 07:55] LABS: HEMOGLOBIN 9.9 g/dL (13.0-17.0); MEAN CORPUSCULAR HEMOGLOBIN 30.8 pg (27.0-31.0); MEAN CORPUSCULAR HGB CONC 31.9 g/dL (32.0-36.0); MEAN CORPUSCULAR VOLUME 96.6 fL (82.0-92.0); MEAN PLATELET VOLUME 9.9 fL (7.4-10.4); PLATELET COUNT,PLT 279 10^3/uL (150-400); RED BLOOD CELL COUNT 3.21 10^6/uL (4.50-6.00); RED CELL DISTRIBUTION WIDTH 18.8 % (11.5-14.5)
[2023-10-18 08:13] LABS: BASOPHILS PERCENT MAN 1 % (0-1); EOSINOPHILS PERCENT MAN 4 % (1-3); LYMPHOCYTES PERCENT MAN 10 % (20-40); MONOCYTES PERCENT MAN 30 % (2-8); SEG NEUTROPHILS PERCENT MAN 55 % (50-70); SLIDE REVIEW YES
[2023-10-18] MEDS: Sodium Chloride 0.9% 10 ML Syringe FLUSH SCH (09:12)
[2023-10-18] MEDS: Acetaminophen/HYDROcodone 325-5 MG Tab PO PRN (09:35)
[2023-10-19 07:26] LABS: HEMATOCRIT 27.8 % (40.0-52.0); HEMOGLOBIN 9.1 g/dL (13.0-17.0); MEAN CORPUSCULAR HEMOGLOBIN 31.5 pg (27.0-31.0); MEAN CORPUSCULAR HGB CONC 32.7 g/dL (32.0-36.0); MEAN CORPUSCULAR VOLUME 96.2 fL (82.0-92.0); MEAN PLATELET VOLUME 9.8 fL (7.4-10.4); PLATELET COUNT,PLT 258 10^3/uL (150-400); RED BLOOD CELL COUNT 2.89 10^6/uL (4.50-6.00); RED CELL DISTRIBUTION WIDTH 18.8 % (11.5-14.5); WHITE BLOOD CELL COUNT,WBC 5.64 10^3/uL (5.00-10.00)
[2023-10-19 08:11] LABS: BAND PERCENT MAN 3 % (4-12); BASOPHILS PERCENT MAN 0 % (0-1); EOSINOPHILS PERCENT MAN 3 % (1-3); LYMPHOCYTES PERCENT MAN 5 % (20-40); MONOCYTES PERCENT MAN 40 % (2-8); SEG NEUTROPHILS PERCENT MAN 49 % (50-70)
[2023-10-19] MEDS: Sodium Chloride 0.9% 10 ML Syringe FLUSH SCH (09:17)
[2023-10-19] MEDS: Fluticasone NASAL Spray 16 GM Bottle NASBOTH SCH (13:11)
[2023-10-19 17:11] LABS: CALCIUM 9.2 mg/dL (8.7-10.3); CARBON DIOXIDE,CO2 25.1 mmol/L (21.0-32.0); CREATININE 2.17 mg/dL (0.51-1.17); EST CRCL DRUG DOSING (CG) 27.58 mL/min
[2023-10-19 17:16] LABS: ANION GAP 15.2 mmol/L (5-15); POTASSIUM,K 3.3 mmol/L (3.5-5.1)
[2023-10-19] MEDS: Iron Sucrose Complex 500 MG in Sodium Chloride 0.9% 250 ML IV ONE (20:18)
[2023-10-20 08:28] LABS: HEMATOCRIT 28.6 % (40.0-52.0); HEMOGLOBIN 9.3 g/dL (13.0-17.0); MEAN CORPUSCULAR HEMOGLOBIN 31.2 pg (27.0-31.0); MEAN CORPUSCULAR HGB CONC 32.5 g/dL (32.0-36.0); MEAN PLATELET VOLUME 9.4 fL (7.4-10.4); PLATELET COUNT,PLT 234 10^3/uL (150-400); RED BLOOD CELL COUNT 2.98 10^6/uL (4.50-6.00); RED CELL DISTRIBUTION WIDTH 18.9 % (11.5-14.5); WHITE BLOOD CELL COUNT,WBC 4.86 10^3/uL (5.00-10.00)
[2023-10-20 08:49] LABS: CALCIUM 9.3 mg/dL (8.7-10.3); CARBON DIOXIDE,CO2 25.5 mmol/L (21.0-32.0); CREATININE 1.86 mg/dL (0.51-1.17); EST CRCL DRUG DOSING (CG) 32.18 mL/min; POTASSIUM,K 3.5 mmol/L (3.5-5.1)
[2023-10-20 09:10] LABS: BAND PERCENT MAN 3 % (4-12); BASOPHILS ABSOLUTE MAN 0.0486; BASOPHILS PERCENT MAN 1 % (0-1); EOSINOPHILS ABSOLUTE MAN 0.1944; EOSINOPHILS PERCENT MAN 4 % (1-3); LYMPHOCYTES ABSOLUTE MAN 0.3402; LYMPHOCYTES PERCENT MAN 7 % (20-40); MONOCYTES PERCENT MAN 35 % (2-8); NEUTROPHILS ABSOLUTE MAN 2.5758; SEG NEUTROPHILS PERCENT MAN 50 % (50-70)
[2023-10-20] MEDS: Potassium Chloride 20 MEQ Tab.ER PO ONE (10:58)
[2023-10-21] MEDS: Fluticasone NASAL Spray 16 GM Bottle NASBOTH PRN (20:55)
[2023-10-22 07:20] LABS: HEMATOCRIT 25.2 % (40.0-52.0); HEMOGLOBIN 8.1 g/dL (13.0-17.0); MEAN CORPUSCULAR HEMOGLOBIN 31.4 pg (27.0-31.0); MEAN CORPUSCULAR HGB CONC 32.1 g/dL (32.0-36.0); MEAN CORPUSCULAR VOLUME 97.7 fL (82.0-92.0); MEAN PLATELET VOLUME 8.7 fL (7.4-10.4); PLATELET COUNT,PLT 215 10^3/uL (150-400); RED BLOOD CELL COUNT 2.58 10^6/uL (4.50-6.00); RED CELL DISTRIBUTION WIDTH 18.8 % (11.5-14.5); WHITE BLOOD CELL COUNT,WBC 3.84 10^3/uL (5.00-10.00)
[2023-10-22 07:34] LABS: BASOPHILS PERCENT MAN 0 % (0-1); EOSINOPHILS PERCENT MAN 5 % (1-3); LYMPHOCYTES PERCENT MAN 15 % (20-40); MONOCYTES PERCENT MAN 30 % (2-8); SEG NEUTROPHILS PERCENT MAN 50 % (50-70)
[2023-10-22 07:35] LABS: C-REACTIVE PROTEIN 5.69 mg/dL (0.00-0.50); CREATININE 1.97 mg/dL (0.51-1.17); EST CRCL DRUG DOSING (CG) 30.38 mL/min
[2023-10-22 23:06] LABS: % TRANSFERRIN SAT 30.8 % (20.0-50.0)
[2023-10-23] MEDS: Loperamide 2 MG Cap PO PRN (21:54)
[2023-10-24 11:51] LABS: APPEARANCE,URINE CLEAR (CLEAR); BILIRUBIN,URINE NEGATIVE (NEGATIVE); COLOR,URINE YELLOW (YELLOW); GLUCOSE,URINE NEGATIVE (NEGATIVE); KETONES,URINE NEGATIVE (NEGATIVE); LEUKOCYTE ESTERASE,URINE NEGATIVE (NEGATIVE); NITRITE,URINE NEGATIVE (NEGATIVE); OCCULT BLOOD,URINE NEGATIVE (NEGATIVE); PH,URINE 5.5 (5.0-9.0); PROTEIN,URINE NEGATIVE (NEGATIVE); UROBILINOGEN,URINE 0.2 E.U./dL (0.2-1.0)
[2023-10-24] MEDS: Multivitamins with Minerals/Iron/Folic Acid/Lycopene Tab PO SCH (14:36)
[2023-10-24] MEDS: Biotin/Folic Acid/Vitamin C/Vitamin B Complex Tab PO SCH (14:36)
[2023-10-24] MEDS: Ferrous Sulfate 325 MG Tab PO SCH (14:36)
[2023-10-24] MEDS: Ascorbic Acid 500 MG Tab PO SCH (14:37)
[2023-10-25] MEDS: OLANZapine 5 MG Tab.DIS PO PRN ×2 (00:10→23:25)
[2023-10-25 07:24] LABS: BASOPHILS ABSOLUTE AUTO 0.06 10^3/uL (0.00-0.10); BASOPHILS PERCENT AUTO 1.1 % (0.0-1.0); EOSINOPHILS ABSOLUTE AUTO 0.23 10^3/uL (0.10-0.30); EOSINOPHILS PERCENT AUTO 4.4 % (1.0-3.0); HEMATOCRIT 25.8 % (40.0-52.0); HEMOGLOBIN 8.3 g/dL (13.0-17.0); IMMATURE GRAN ABSOLUTE AUTO 0.12 10^3/uL (0.00-0.50); IMMATURE GRAN PERCENT AUTO 2.3 % (0.0-5.0); LYMPHOCYTES ABSOLUTE AUTO 0.36 10^3/uL (1.00-4.00); LYMPHOCYTES PERCENT AUTO 6.8 % (20.0-40.0); MEAN CORPUSCULAR HEMOGLOBIN 31.8 pg (27.0-31.0); MEAN CORPUSCULAR HGB CONC 32.2 g/dL (32.0-36.0); MEAN CORPUSCULAR VOLUME 98.9 fL (82.0-92.0); MONOCYTES ABSOLUTE AUTO 1.66 10^3/uL (0.10-0.80); MONOCYTES PERCENT AUTO 31.6 % (2.0-8.0); NEUTROPHILS ABSOLUTE AUTO 2.83 10^3/uL (2.50-7.00); NEUTROPHILS PERCENT AUTO 53.8 % (50.0-70.0); PLATELET COUNT,PLT 244 10^3/uL (150-400); RED BLOOD CELL COUNT 2.61 10^6/uL (4.50-6.00); RED CELL DISTRIBUTION WIDTH 20.1 % (11.5-14.5); WHITE BLOOD CELL COUNT,WBC 5.26 10^3/uL (5.00-10.00)
[2023-10-25] MEDS: Diclofenac Sodium 1% Gel 100 GM Tube TOP PRN (23:18)
[2023-10-27] MEDS: Calcium Carbonate 500 MG Tab.Chew PO PRN (08:42)
[2023-10-27] MEDS: diphenhydrAMINE 25 MG Cap PO PRN (23:16)
[2023-10-28] MEDS: Bacitracin/Neomycin/Polymyxin B Oint 28.4 GM Tube TOP SCH (19:42)
[2023-10-28] MEDS: Lidocaine 2% Jelly 5 ML Tube TOP PRN (19:45)
[2023-10-29 07:08] LABS: BASOPHILS ABSOLUTE AUTO 0.03 10^3/uL (0.00-0.10); BASOPHILS PERCENT AUTO 0.7 % (0.0-1.0); EOSINOPHILS ABSOLUTE AUTO 0.27 10^3/uL (0.10-0.30); EOSINOPHILS PERCENT AUTO 6.5 % (1.0-3.0); HEMATOCRIT 23.2 % (40.0-52.0); HEMOGLOBIN 7.6 g/dL (13.0-17.0); IMMATURE GRAN PERCENT AUTO 2.4 % (0.0-5.0); LYMPHOCYTES ABSOLUTE AUTO 0.39 10^3/uL (1.00-4.00); LYMPHOCYTES PERCENT AUTO 9.4 % (20.0-40.0); MEAN CORPUSCULAR HEMOGLOBIN 31.9 pg (27.0-31.0); MEAN CORPUSCULAR HGB CONC 32.8 g/dL (32.0-36.0); MEAN CORPUSCULAR VOLUME 97.5 fL (82.0-92.0); MONOCYTES ABSOLUTE AUTO 1.71 10^3/uL (0.10-0.80); MONOCYTES PERCENT AUTO 41.3 % (2.0-8.0); NEUTROPHILS ABSOLUTE AUTO 1.64 10^3/uL (2.50-7.00); NEUTROPHILS PERCENT AUTO 39.7 % (50.0-70.0); PLATELET COUNT,PLT 233 10^3/uL (150-400); RED BLOOD CELL COUNT 2.38 10^6/uL (4.50-6.00); RED CELL DISTRIBUTION WIDTH 20.5 % (11.5-14.5); WHITE BLOOD CELL COUNT,WBC 4.14 10^3/uL (5.00-10.00)
[2023-10-29 07:22] LABS: C-REACTIVE PROTEIN 7.89 mg/dL (0.00-0.50); CREATININE 1.67 mg/dL (0.51-1.17); EST CRCL DRUG DOSING (CG) 35.84 mL/min
[2023-10-30 18:22] LABS: BASOPHILS ABSOLUTE AUTO 0.04 10^3/uL (0.00-0.10); BASOPHILS PERCENT AUTO 0.8 % (0.0-1.0); EOSINOPHILS ABSOLUTE AUTO 0.34 10^3/uL (0.10-0.30); EOSINOPHILS PERCENT AUTO 6.5 % (1.0-3.0); HEMOGLOBIN 8.7 g/dL (13.0-17.0); IMMATURE GRAN ABSOLUTE AUTO 0.21 10^3/uL (0.00-0.50); LYMPHOCYTES ABSOLUTE AUTO 0.52 10^3/uL (1.00-4.00); LYMPHOCYTES PERCENT AUTO 9.9 % (20.0-40.0); MEAN CORPUSCULAR HEMOGLOBIN 32.1 pg (27.0-31.0); MEAN CORPUSCULAR HGB CONC 32.2 g/dL (32.0-36.0); MEAN CORPUSCULAR VOLUME 99.6 fL (82.0-92.0); MEAN PLATELET VOLUME 9.2 fL (7.4-10.4); MONOCYTES ABSOLUTE AUTO 1.82 10^3/uL (0.10-0.80); MONOCYTES PERCENT AUTO 34.6 % (2.0-8.0); NEUTROPHILS ABSOLUTE AUTO 2.33 10^3/uL (2.50-7.00); NEUTROPHILS PERCENT AUTO 44.2 % (50.0-70.0); PLATELET COUNT,PLT 337 10^3/uL (150-400); RED BLOOD CELL COUNT 2.71 10^6/uL (4.50-6.00); WHITE BLOOD CELL COUNT,WBC 5.26 10^3/uL (5.00-10.00)
[2023-10-30 18:36] LABS: ANION GAP 14.1 mmol/L (5-15); CALCIUM 9.3 mg/dL (8.7-10.3); CARBON DIOXIDE,CO2 27.7 mmol/L (21.0-32.0); CREATININE 1.65 mg/dL (0.51-1.17); EST CRCL DRUG DOSING (CG) 36.27 mL/min; MAGNESIUM 1.9 mg/dL (1.8-2.4); POTASSIUM,K 3.8 mmol/L (3.5-5.1)
[2023-10-31 08:04] LABS: BASOPHILS ABSOLUTE AUTO 0.04 10^3/uL (0.00-0.10); BASOPHILS PERCENT AUTO 0.8 % (0.0-1.0); EOSINOPHILS ABSOLUTE AUTO 0.27 10^3/uL (0.10-0.30); EOSINOPHILS PERCENT AUTO 5.1 % (1.0-3.0); HEMATOCRIT 26.1 % (40.0-52.0); IMMATURE GRAN ABSOLUTE AUTO 0.23 10^3/uL (0.00-0.50); IMMATURE GRAN PERCENT AUTO 4.4 % (0.0-5.0); LYMPHOCYTES ABSOLUTE AUTO 0.48 10^3/uL (1.00-4.00); LYMPHOCYTES PERCENT AUTO 9.1 % (20.0-40.0); MEAN CORPUSCULAR HEMOGLOBIN 31.4 pg (27.0-31.0); MEAN CORPUSCULAR HGB CONC 30.7 g/dL (32.0-36.0); MEAN CORPUSCULAR VOLUME 102.4 fL (82.0-92.0); MEAN PLATELET VOLUME 8.9 fL (7.4-10.4); MONOCYTES ABSOLUTE AUTO 1.68 10^3/uL (0.10-0.80); MONOCYTES PERCENT AUTO 31.8 % (2.0-8.0); NEUTROPHILS ABSOLUTE AUTO 2.58 10^3/uL (2.50-7.00); NEUTROPHILS PERCENT AUTO 48.8 % (50.0-70.0); PLATELET COUNT,PLT 273 10^3/uL (150-400); RED BLOOD CELL COUNT 2.55 10^6/uL (4.50-6.00); RED CELL DISTRIBUTION WIDTH 21.1 % (11.5-14.5); WHITE BLOOD CELL COUNT,WBC 5.28 10^3/uL (5.00-10.00)
[2023-11-02 12:07] LABS: BASOPHILS ABSOLUTE AUTO 0.04 10^3/uL (0.00-0.10); BASOPHILS PERCENT AUTO 0.7 % (0.0-1.0); EOSINOPHILS ABSOLUTE AUTO 0.31 10^3/uL (0.10-0.30); EOSINOPHILS PERCENT AUTO 5.3 % (1.0-3.0); HEMOGLOBIN 7.7 g/dL (13.0-17.0); IMMATURE GRAN ABSOLUTE AUTO 0.22 10^3/uL (0.00-0.50); IMMATURE GRAN PERCENT AUTO 3.7 % (0.0-5.0); LYMPHOCYTES ABSOLUTE AUTO 0.51 10^3/uL (1.00-4.00); LYMPHOCYTES PERCENT AUTO 8.7 % (20.0-40.0); MEAN CORPUSCULAR HEMOGLOBIN 32.5 pg (27.0-31.0); MEAN CORPUSCULAR HGB CONC 32.1 g/dL (32.0-36.0); MEAN CORPUSCULAR VOLUME 101.3 fL (82.0-92.0); MEAN PLATELET VOLUME 8.7 fL (7.4-10.4); MONOCYTES ABSOLUTE AUTO 1.78 10^3/uL (0.10-0.80); MONOCYTES PERCENT AUTO 30.3 % (2.0-8.0); NEUTROPHILS ABSOLUTE AUTO 3.01 10^3/uL (2.50-7.00); NEUTROPHILS PERCENT AUTO 51.3 % (50.0-70.0); PLATELET COUNT,PLT 331 10^3/uL (150-400); RED BLOOD CELL COUNT 2.37 10^6/uL (4.50-6.00); RED CELL DISTRIBUTION WIDTH 21.2 % (11.5-14.5); WHITE BLOOD CELL COUNT,WBC 5.87 10^3/uL (5.00-10.00)
[2023-11-02 12:23] LABS: ALBUMIN 2.29 g/dL (3.40-5.00); ANION GAP 16.8 mmol/L (5-15); BILIRUBIN TOTAL 0.3 mg/dL (0.2-1.0); CALCIUM 8.9 mg/dL (8.7-10.3); CARBON DIOXIDE,CO2 26.3 mmol/L (21.0-32.0); CREATININE 1.74 mg/dL (0.51-1.17); EST CRCL DRUG DOSING (CG) 34.4 mL/min; POTASSIUM,K 4.1 mmol/L (3.5-5.1)
[2023-11-05 07:13] LABS: BASOPHILS ABSOLUTE AUTO 0.04 10^3/uL (0.00-0.10); BASOPHILS PERCENT AUTO 0.8 % (0.0-1.0); EOSINOPHILS ABSOLUTE AUTO 0.26 10^3/uL (0.10-0.30); EOSINOPHILS PERCENT AUTO 5.3 % (1.0-3.0); HEMATOCRIT 25.7 % (40.0-52.0); HEMOGLOBIN 8.1 g/dL (13.0-17.0); IMMATURE GRAN ABSOLUTE AUTO 0.17 10^3/uL (0.00-0.50); IMMATURE GRAN PERCENT AUTO 3.5 % (0.0-5.0); LYMPHOCYTES ABSOLUTE AUTO 0.34 10^3/uL (1.00-4.00); LYMPHOCYTES PERCENT AUTO 6.9 % (20.0-40.0); MEAN CORPUSCULAR HEMOGLOBIN 32.7 pg (27.0-31.0); MEAN CORPUSCULAR HGB CONC 31.5 g/dL (32.0-36.0); MEAN CORPUSCULAR VOLUME 103.6 fL (82.0-92.0); MEAN PLATELET VOLUME 8.8 fL (7.4-10.4); MONOCYTES ABSOLUTE AUTO 1.68 10^3/uL (0.10-0.80); MONOCYTES PERCENT AUTO 34.2 % (2.0-8.0); NEUTROPHILS ABSOLUTE AUTO 2.42 10^3/uL (2.50-7.00); NEUTROPHILS PERCENT AUTO 49.3 % (50.0-70.0); PLATELET COUNT,PLT 355 10^3/uL (150-400); RED BLOOD CELL COUNT 2.48 10^6/uL (4.50-6.00); RED CELL DISTRIBUTION WIDTH 22.3 % (11.5-14.5); WHITE BLOOD CELL COUNT,WBC 4.91 10^3/uL (5.00-10.00)
[2023-11-05 07:42] LABS: C-REACTIVE PROTEIN 3.93 mg/dL (0.00-0.50); CREATININE 1.63 mg/dL (0.51-1.17); EST CRCL DRUG DOSING (CG) 36.72 mL/min
[2023-11-06] MEDS: DARBEPOETIN ALFA SUBCUT ONE (17:29)
[2023-11-10 08:50] LABS: BASOPHILS ABSOLUTE AUTO 0.04 10^3/uL (0.00-0.10); BASOPHILS PERCENT AUTO 0.9 % (0.0-1.0); EOSINOPHILS ABSOLUTE AUTO 0.27 10^3/uL (0.10-0.30); EOSINOPHILS PERCENT AUTO 6.3 % (1.0-3.0); HEMATOCRIT 26.9 % (40.0-52.0); HEMOGLOBIN 8.5 g/dL (13.0-17.0); IMMATURE GRAN ABSOLUTE AUTO 0.09 10^3/uL (0.00-0.50); IMMATURE GRAN PERCENT AUTO 2.1 % (0.0-5.0); LYMPHOCYTES ABSOLUTE AUTO 0.36 10^3/uL (1.00-4.00); LYMPHOCYTES PERCENT AUTO 8.5 % (20.0-40.0); MEAN CORPUSCULAR HEMOGLOBIN 32.8 pg (27.0-31.0); MEAN CORPUSCULAR HGB CONC 31.6 g/dL (32.0-36.0); MEAN CORPUSCULAR VOLUME 103.9 fL (82.0-92.0); MEAN PLATELET VOLUME 8.8 fL (7.4-10.4); MONOCYTES PERCENT AUTO 21.1 % (2.0-8.0); NEUTROPHILS PERCENT AUTO 61.1 % (50.0-70.0); PLATELET COUNT,PLT 321 10^3/uL (150-400); RED BLOOD CELL COUNT 2.59 10^6/uL (4.50-6.00); RED CELL DISTRIBUTION WIDTH 22.2 % (11.5-14.5); WHITE BLOOD CELL COUNT,WBC 4.26 10^3/uL (5.00-10.00)
[2023-11-10 09:10] LABS: ALBUMIN 2.46 g/dL (3.40-5.00); BILIRUBIN TOTAL 0.3 mg/dL (0.2-1.0); CARBON DIOXIDE,CO2 23.9 mmol/L (21.0-32.0); CREATININE 1.65 mg/dL (0.51-1.17); EST CRCL DRUG DOSING (CG) 36.27 mL/min; MAGNESIUM 1.8 mg/dL (1.8-2.4); POTASSIUM,K 3.9 mmol/L (3.5-5.1); PROTEIN TOTAL,TP 7.6 g/dL (6.4-8.2)
[2023-11-10] MEDS: Magnesium Oxide 500 MG Tab PO ONE (10:14)
[2023-11-10] MEDS: Potassium Chloride 10 MEQ Tab.ER PO ONE (10:14)
[2023-11-12 07:14] LABS: BASOPHILS ABSOLUTE AUTO 0.04 10^3/uL (0.00-0.10); BASOPHILS PERCENT AUTO 0.7 % (0.0-1.0); EOSINOPHILS ABSOLUTE AUTO 0.26 10^3/uL (0.10-0.30); EOSINOPHILS PERCENT AUTO 4.7 % (1.0-3.0); HEMATOCRIT 25.8 % (40.0-52.0); HEMOGLOBIN 8.1 g/dL (13.0-17.0); IMMATURE GRAN ABSOLUTE AUTO 0.22 10^3/uL (0.00-0.50); LYMPHOCYTES ABSOLUTE AUTO 0.42 10^3/uL (1.00-4.00); LYMPHOCYTES PERCENT AUTO 7.6 % (20.0-40.0); MEAN CORPUSCULAR HEMOGLOBIN 32.4 pg (27.0-31.0); MEAN CORPUSCULAR HGB CONC 31.4 g/dL (32.0-36.0); MEAN CORPUSCULAR VOLUME 103.2 fL (82.0-92.0); MEAN PLATELET VOLUME 8.8 fL (7.4-10.4); MONOCYTES ABSOLUTE AUTO 1.65 10^3/uL (0.10-0.80); MONOCYTES PERCENT AUTO 29.7 % (2.0-8.0); NEUTROPHILS ABSOLUTE AUTO 2.97 10^3/uL (2.50-7.00); NEUTROPHILS PERCENT AUTO 53.3 % (50.0-70.0); PLATELET COUNT,PLT 305 10^3/uL (150-400); RED CELL DISTRIBUTION WIDTH 22.7 % (11.5-14.5); WHITE BLOOD CELL COUNT,WBC 5.56 10^3/uL (5.00-10.00)
[2023-11-12 07:29] LABS: C-REACTIVE PROTEIN 3.4 mg/dL (0.00-0.50); CREATININE 1.62 mg/dL (0.51-1.17); EST CRCL DRUG DOSING (CG) 36.94 mL/min
[2023-11-16] MEDS ORDERED: [UNRECOGNIZED DRUG - OTHER] IM ONE (10:45)
[2023-11-16] MEDS: [UNRECOGNIZED DRUG - OTHER] IM ONE (11:19)
[2023-11-19 07:24] LABS: BASOPHILS ABSOLUTE AUTO 0.03 10^3/uL (0.00-0.10); BASOPHILS PERCENT AUTO 0.7 % (0.0-1.0); EOSINOPHILS ABSOLUTE AUTO 0.21 10^3/uL (0.10-0.30); EOSINOPHILS PERCENT AUTO 5.1 % (1.0-3.0); HEMATOCRIT 22.2 % (40.0-52.0); IMMATURE GRAN ABSOLUTE AUTO 0.16 10^3/uL (0.00-0.50); IMMATURE GRAN PERCENT AUTO 3.9 % (0.0-5.0); LYMPHOCYTES ABSOLUTE AUTO 0.45 10^3/uL (1.00-4.00); LYMPHOCYTES PERCENT AUTO 10.9 % (20.0-40.0); MEAN CORPUSCULAR HEMOGLOBIN 33.5 pg (27.0-31.0); MEAN CORPUSCULAR HGB CONC 31.5 g/dL (32.0-36.0); MEAN CORPUSCULAR VOLUME 106.2 fL (82.0-92.0); MEAN PLATELET VOLUME 8.4 fL (7.4-10.4); MONOCYTES PERCENT AUTO 33.8 % (2.0-8.0); NEUTROPHILS ABSOLUTE AUTO 1.89 10^3/uL (2.50-7.00); NEUTROPHILS PERCENT AUTO 45.6 % (50.0-70.0); PLATELET COUNT,PLT 204 10^3/uL (150-400); RED BLOOD CELL COUNT 2.09 10^6/uL (4.50-6.00); WHITE BLOOD CELL COUNT,WBC 4.14 10^3/uL (5.00-10.00)
[2023-11-19 07:39] LABS: C-REACTIVE PROTEIN 1.39 mg/dL (0.00-0.50); CREATININE 1.58 mg/dL (0.51-1.17); EST CRCL DRUG DOSING (CG) 37.88 mL/min
[2023-11-19 11:15] LABS: HEMATOCRIT 25.5 % (40.0-52.0); HEMOGLOBIN 7.8 g/dL (13.0-17.0)
[2023-11-20] MEDS ORDERED: TROLAMINE TOP PRN (11:00)
[2023-11-20] MEDS ORDERED: MENTHOL TOP PRN (11:00)
[2023-11-20] MEDS ORDERED: KETOPROFEN TOP PRN (11:00)
[2023-11-23 11:43] VITALS: PULSE 81
[2023-11-23 16:11] VITALS: BP 125/59
== END 2023-11-23 11:10 | DRG 948 ==
LOC: KA.MS 13:57
PROVIDERS: ADMIT Family Medicine; ATTEND Family Medicine
DX: R53.81 Other malaise (principal); N25.81 Secondary hyperparathyroidism of renal origin; F03.93 Unspecified dementia, unspecified severity, with mood disturbance; D84.9 Immunodeficiency, unspecified; I50.32 Chronic diastolic (congestive) heart failure; I13.0 Hypertensive heart and chronic kidney disease with heart failure and stage 1 through stage 4 chronic kidney disease, or unspecified chronic kidney disease; E44.0 Moderate protein-calorie malnutrition; L97.829 Non-pressure chronic ulcer of other part of left lower leg with unspecified severity; J44.9 Chronic obstructive pulmonary disease, unspecified; I25.10 Atherosclerotic heart disease of native coronary artery without angina pectoris; G47.33 Obstructive sleep apnea (adult) (pediatric); I48.0 Paroxysmal atrial fibrillation; Z66 Do not resuscitate; H91.90 Unspecified hearing loss, unspecified ear; H54.7 Unspecified visual loss; E78.00 Pure hypercholesterolemia, unspecified; G43.909 Migraine, unspecified, not intractable, without status migrainosus; K59.09 Other constipation; K52.9 Noninfective gastroenteritis and colitis, unspecified; M19.90 Unspecified osteoarthritis, unspecified site; Z96.643 Presence of artificial hip joint, bilateral; D63.1 Anemia in chronic kidney disease; N18.30 Chronic kidney disease, stage 3 unspecified; M85.80 Other specified disorders of bone density and structure, unspecified site; L97.511 Non-pressure chronic ulcer of other part of right foot limited to breakdown of skin; R26.2 Difficulty in walking, not elsewhere classified; Z85.46 Personal history of malignant neoplasm of prostate; I25.2 Old myocardial infarction; Z88.8 Allergy status to other drugs, medicaments and biological substances; Z79.899 Other long term (current) drug therapy; Z79.01 Long term (current) use of anticoagulants; Z79.02 Long term (current) use of antithrombotics/antiplatelets; Z79.2 Long term (current) use of antibiotics; Z87.01 Personal history of pneumonia (recurrent); Z98.890 Other specified postprocedural states; Z87.19 Personal history of other diseases of the digestive system; Z87.81 Personal history of (healed) traumatic fracture; Z90.89 Acquired absence of other organs; Z95.1 Presence of aortocoronary bypass graft; Z95.820 Peripheral vascular angioplasty status with implants and grafts; Z95.828 Presence of other vascular implants and grafts; Z89.421 Acquired absence of other right toe(s); Z89.422 Acquired absence of other left toe(s)
CPT/HCPCS: 36415; 80048; 80053; 81003; 82565; 82728; 83036; 83540; 83550; 83735; 84460; 85014; 85018; 85025; 85046; 86140; 97110-GP; 97116-GP; 97161-GP; 97605; 97606; A6212; A9270-GY; J0696; J0881; J3490; Q0138; Q3014

== ENCOUNTER 2023-12-09 09:38 | Emergency (ER) | payer MEDICARE, BC ==
[2023-12-09 10:02] LABS: BASOPHILS ABSOLUTE AUTO 0.03 10^3/uL (0.00-0.10); BASOPHILS PERCENT AUTO 0.2 % (0.0-1.0); EOSINOPHILS ABSOLUTE AUTO 0.05 10^3/uL (0.10-0.30); EOSINOPHILS PERCENT AUTO 0.3 % (1.0-3.0); HEMATOCRIT 24.1 % (40.0-52.0); HEMOGLOBIN 7.6 g/dL (13.0-17.0); IMMATURE GRAN ABSOLUTE AUTO 0.06 10^3/uL (0.00-0.50); IMMATURE GRAN PERCENT AUTO 0.4 % (0.0-5.0); LYMPHOCYTES ABSOLUTE AUTO 0.43 10^3/uL (1.00-4.00); LYMPHOCYTES PERCENT AUTO 2.8 % (20.0-40.0); MEAN CORPUSCULAR HEMOGLOBIN 35.3 pg (27.0-31.0); MEAN CORPUSCULAR HGB CONC 31.5 g/dL (32.0-36.0); MEAN CORPUSCULAR VOLUME 112.1 fL (82.0-92.0); MEAN PLATELET VOLUME 8.9 fL (7.4-10.4); MONOCYTES ABSOLUTE AUTO 2.81 10^3/uL (0.10-0.80); MONOCYTES PERCENT AUTO 18.5 % (2.0-8.0); NEUTROPHILS ABSOLUTE AUTO 11.78 10^3/uL (2.50-7.00); NEUTROPHILS PERCENT AUTO 77.8 % (50.0-70.0); PLATELET COUNT,PLT 212 10^3/uL (150-400); RED BLOOD CELL COUNT 2.15 10^6/uL (4.50-6.00); RED CELL DISTRIBUTION WIDTH 18.1 % (11.5-14.5); WHITE BLOOD CELL COUNT,WBC 15.16 10^3/uL (5.00-10.00)
[2023-12-09 10:04] VITALS: BP 104/59; PULSE 105
[2023-12-09 10:10] LABS: ALBUMIN 2.63 g/dL (3.40-5.00); ANION GAP 15.5 mmol/L (5-15); BILIRUBIN TOTAL 0.5 mg/dL (0.2-1.0); CALCIUM 9.1 mg/dL (8.7-10.3); CARBON DIOXIDE,CO2 24.2 mmol/L (21.0-32.0); CREATININE 1.47 mg/dL (0.51-1.17); EST CRCL DRUG DOSING (CG) 42.08 mL/min; POTASSIUM,K 3.7 mmol/L (3.5-5.1); PROTEIN TOTAL,TP 7.3 g/dL (6.4-8.2)
[2023-12-09 10:13] LABS: LACTIC ACID 2.5 mmol/L (0.4-2.0)
[2023-12-09] MEDS: Ondansetron 4 MG/2 ML SDV IVPUSH ONE (10:18)
[2023-12-09] MEDS: HYDROmorphone 1 MG/ML Syringe IVPUSH ONE ×2 (10:22→12:58)
[2023-12-09] MEDS: Ondansetron 4 MG/2 ML SDV ONE (10:27)
[2023-12-09] MEDS: HYDROmorphone 1 MG/ML Syringe ONE (10:27)
[2023-12-09] MEDS: Sodium Chloride 0.9% 1,000 ML IV SCH (10:30)
[2023-12-09 11:01] LABS: APPEARANCE,URINE SLIGHTLY CLOUDY (CLEAR); BILIRUBIN,URINE NEGATIVE (NEGATIVE); COLOR,URINE YELLOW (YELLOW); GLUCOSE,URINE NEGATIVE (NEGATIVE); KETONES,URINE NEGATIVE (NEGATIVE); LEUKOCYTE ESTERASE,URINE NEGATIVE (NEGATIVE); NITRITE,URINE NEGATIVE (NEGATIVE); OCCULT BLOOD,URINE SMALL (NEGATIVE); PROTEIN,URINE 30 mg/dL (NEGATIVE); UROBILINOGEN,URINE 0.2 E.U./dL (0.2-1.0)
[2023-12-09 11:04] LABS: BACTERIA,URINE RARE /HPF (NONE TO FEW); EPITHELIAL CELLS,URINE RARE /LPF; MUCUS,URINE RARE /LPF (NEGATIVE); WBC,URINE 0-5 /HPF (0-5)
[2023-12-09] MEDS: Iopamidol 755 Mg/ML 100 ML Bottle IV ONE (11:08)
[2023-12-09] MEDS: Sodium Chloride 0.9% 50 ML IV SCH (11:08)
[2023-12-09] MEDS ORDERED: Sodium Chloride 0.9% 10 ML Syringe FLUSH PRN (11:39)
[2023-12-09] MEDS: Cefepime 2 GM in Sodium Chloride 0.9% 50 ML IV ONE (12:06)
[2023-12-09] MEDS: Sodium Chloride 0.9% 50 ML ONE (12:18)
[2023-12-09] MEDS ORDERED: Naloxone 0.4 MG/ML SDV IVPUSH PRN (12:50)
[2023-12-09] MEDS: Sodium Chloride 0.9% 10 ML Syringe FLUSH PRN (13:01)
[2023-12-09] MEDS ORDERED: Sodium Chloride 0.9% 1,000 ML IV SCH ×2 (13:15→14:15)
[2023-12-09] MEDS: metroNIDAZOLE/Normal Saline 500 MG in Premix Bag 1 BAG IV ONE (13:35)
[2023-12-09] MEDS: Norepinephrine Bit/D5W Premix 250 ML IV SCH (14:35)
== END 2023-12-09 15:25 ==
LOC: KA.ED 09:38
DX: A41.9 Sepsis, unspecified organism (principal); R65.21 Severe sepsis with septic shock; R09.02 Hypoxemia; K57.92 Diverticulitis of intestine, part unspecified, without perforation or abscess without bleeding; I10 Essential (primary) hypertension; E78.00 Pure hypercholesterolemia, unspecified; Z88.8 Allergy status to other drugs, medicaments and biological substances; Z91.018 Allergy to other foods; Z79.899 Other long term (current) drug therapy
CPT/HCPCS: 36415; 51702; 71045; 74177; 80053; 81001; 83605; 85025; 87040; 96361; 96365; 96367; 96375; 96376; 99284; 99285-25; J0692; J1170; J1836; J2405; J3490; J7030; Q9967

== ENCOUNTER 2024-01-18 11:46 | Emergency (ER) | payer MEDICARE, BC ==
[2024-01-18 12:07] LABS: BASOPHILS ABSOLUTE AUTO 0.03 10^3/uL (0.00-0.10); BASOPHILS PERCENT AUTO 0.3 % (0.0-1.0); EOSINOPHILS ABSOLUTE AUTO 0.15 10^3/uL (0.10-0.30); EOSINOPHILS PERCENT AUTO 1.4 % (1.0-3.0); HEMATOCRIT 31.4 % (40.0-52.0); HEMOGLOBIN 10.1 g/dL (13.0-17.0); IMMATURE GRAN ABSOLUTE AUTO 0.04 10^3/uL (0.00-0.50); IMMATURE GRAN PERCENT AUTO 0.4 % (0.0-5.0); LYMPHOCYTES PERCENT AUTO 3.8 % (20.0-40.0); MEAN CORPUSCULAR HEMOGLOBIN 33.4 pg (27.0-31.0); MEAN CORPUSCULAR HGB CONC 32.2 g/dL (32.0-36.0); MEAN PLATELET VOLUME 9.6 fL (7.4-10.4); NEUTROPHILS ABSOLUTE AUTO 7.93 10^3/uL (2.50-7.00); NEUTROPHILS PERCENT AUTO 75.1 % (50.0-70.0); PLATELET COUNT,PLT 214 10^3/uL (150-400); RED BLOOD CELL COUNT 3.02 10^6/uL (4.50-6.00); RED CELL DISTRIBUTION WIDTH 16.9 % (11.5-14.5); WHITE BLOOD CELL COUNT,WBC 10.55 10^3/uL (5.00-10.00)
[2024-01-18 12:11] VITALS: BP 143/57; PULSE 77
[2024-01-18 12:25] LABS: CALCIUM 9.1 mg/dL (8.7-10.3); CARBON DIOXIDE,CO2 28.4 mmol/L (21.0-32.0); CREATININE 1.93 mg/dL (0.51-1.17); EST CRCL DRUG DOSING (CG) 31.01 mL/min; POTASSIUM,K 3.4 mmol/L (3.5-5.1)
[2024-01-18 12:30] LABS: APPEARANCE,URINE CLEAR (CLEAR); BILIRUBIN,URINE NEGATIVE (NEGATIVE); COLOR,URINE YELLOW (YELLOW); GLUCOSE,URINE NEGATIVE (NEGATIVE); KETONES,URINE NEGATIVE (NEGATIVE); LEUKOCYTE ESTERASE,URINE NEGATIVE (NEGATIVE); NITRITE,URINE NEGATIVE (NEGATIVE); OCCULT BLOOD,URINE TRACE-INTACT (NEGATIVE); PROTEIN,URINE 30 mg/dL (NEGATIVE); UROBILINOGEN,URINE 0.2 E.U./dL (0.2-1.0)
[2024-01-18 12:38] LABS: BACTERIA,URINE RARE /HPF (NONE TO FEW); EPITHELIAL CELLS,URINE RARE /LPF; RBC,URINE 0-5 /HPF (0-5); WBC,URINE 0-5 /HPF (0-5)
[2024-01-18 12:52] LABS: INR 1.1 (0.9-1.1); PROTHROMBIN TIME 12.1 SEC (9.3-12.2); PTT,PARTIAL THROMBOPLSTIN TIME 29.6 SEC (23.3-34.9)
[2024-01-18] MEDS: Sodium Chloride 0.9% 50 ML IV SCH (12:53)
[2024-01-18] MEDS: Iopamidol 755 Mg/ML 100 ML Bottle IV ONE (12:53)
[2024-01-18] MEDS: Sodium Chloride 0.9% 500 ML IV SCH (13:00)
[2024-01-18] MEDS: Ciprofloxacin 500 MG Tab PO ONE (14:40)
[2024-01-18] MEDS: metroNIDAZOLE 500 MG Tab PO ONE (14:40)
== END 2024-01-18 16:13 ==
LOC: KA.ED 11:46
DX: K57.32 Diverticulitis of large intestine without perforation or abscess without bleeding (principal); I12.9 Hypertensive chronic kidney disease with stage 1 through stage 4 chronic kidney disease, or unspecified chronic kidney disease; N18.4 Chronic kidney disease, stage 4 (severe); J44.9 Chronic obstructive pulmonary disease, unspecified; K21.9 Gastro-esophageal reflux disease without esophagitis; Z79.899 Other long term (current) drug therapy; Z91.018 Allergy to other foods; Z88.8 Allergy status to other drugs, medicaments and biological substances
CPT/HCPCS: 36415; 51798; 74177; 80048; 81001; 85025; 85610; 85730; 99284-25; A9270-GY; J3490; J7040; Q9967

== ENCOUNTER 2024-02-05 09:49 | Emergency (ER) | payer MEDICARE, BC ==
[2024-02-05 10:21] VITALS: BP 119/54; PULSE 91
[2024-02-05] MEDS ORDERED: Sodium Chloride 0.9% 10 ML Syringe FLUSH PRN (10:27)
[2024-02-05 10:31] LABS: BASOPHILS ABSOLUTE AUTO 0.04 10^3/uL (0.00-0.10); BASOPHILS PERCENT AUTO 0.3 % (0.0-1.0); EOSINOPHILS ABSOLUTE AUTO 0.03 10^3/uL (0.10-0.30); EOSINOPHILS PERCENT AUTO 0.2 % (1.0-3.0); HEMATOCRIT 27.7 % (40.0-52.0); HEMOGLOBIN 8.9 g/dL (13.0-17.0); IMMATURE GRAN ABSOLUTE AUTO 0.07 10^3/uL (0.00-0.50); IMMATURE GRAN PERCENT AUTO 0.5 % (0.0-5.0); LYMPHOCYTES ABSOLUTE AUTO 0.29 10^3/uL (1.00-4.00); LYMPHOCYTES PERCENT AUTO 2.2 % (20.0-40.0); MEAN CORPUSCULAR HEMOGLOBIN 33.6 pg (27.0-31.0); MEAN CORPUSCULAR HGB CONC 32.1 g/dL (32.0-36.0); MEAN CORPUSCULAR VOLUME 104.5 fL (82.0-92.0); MEAN PLATELET VOLUME 9.5 fL (7.4-10.4); MONOCYTES ABSOLUTE AUTO 1.66 10^3/uL (0.10-0.80); MONOCYTES PERCENT AUTO 12.7 % (2.0-8.0); NEUTROPHILS ABSOLUTE AUTO 10.98 10^3/uL (2.50-7.00); NEUTROPHILS PERCENT AUTO 84.1 % (50.0-70.0); PLATELET COUNT,PLT 221 10^3/uL (150-400); RED BLOOD CELL COUNT 2.65 10^6/uL (4.50-6.00); RED CELL DISTRIBUTION WIDTH 16.9 % (11.5-14.5); WHITE BLOOD CELL COUNT,WBC 13.07 10^3/uL (5.00-10.00)
[2024-02-05 10:43] LABS: ALBUMIN 2.4 g/dL (3.40-5.00); ANION GAP 12.9 mmol/L (5-15); BILIRUBIN TOTAL 0.5 mg/dL (0.2-1.0); CALCIUM 8.7 mg/dL (8.7-10.3); CARBON DIOXIDE,CO2 26.4 mmol/L (21.0-32.0); CREATININE 1.7 mg/dL (0.51-1.17); EST CRCL DRUG DOSING (CG) 32.84 mL/min; POTASSIUM,K 3.3 mmol/L (3.5-5.1); PROTEIN TOTAL,TP 6.8 g/dL (6.4-8.2)
[2024-02-05] MEDS ORDERED: Naloxone 0.4 MG/ML SDV IVPUSH PRN (10:45)
[2024-02-05 10:47] LABS: LACTIC ACID 1.1 mmol/L (0.4-2.0)
[2024-02-05] MEDS: HYDROmorphone 1 MG/ML Syringe IVPUSH ONE (10:59)
[2024-02-05 11:09] LABS: APPEARANCE,URINE CLEAR (CLEAR); BILIRUBIN,URINE NEGATIVE (NEGATIVE); COLOR,URINE YELLOW (YELLOW); GLUCOSE,URINE NEGATIVE (NEGATIVE); KETONES,URINE NEGATIVE (NEGATIVE); LEUKOCYTE ESTERASE,URINE NEGATIVE (NEGATIVE); NITRITE,URINE NEGATIVE (NEGATIVE); OCCULT BLOOD,URINE NEGATIVE (NEGATIVE); PROTEIN,URINE 100 mg/dL (NEGATIVE); UROBILINOGEN,URINE 0.2 E.U./dL (0.2-1.0)
[2024-02-05 11:17] LABS: EPITHELIAL CELLS,URINE RARE /LPF; RBC,URINE 0-5 /HPF (0-5); WBC,URINE 0-5 /HPF (0-5)
[2024-02-05 11:18] LABS: BACTERIA,URINE FEW /HPF (NONE TO FEW)
[2024-02-05] MEDS: Sodium Chloride 0.9% 50 ML IV SCH (11:26)
[2024-02-05] MEDS: Iopamidol 755 Mg/ML 100 ML Bottle IV ONE (11:26)
[2024-02-05] MEDS: NS with KCl 40mEq 1,000 ML IV SCH (11:35)
[2024-02-05] MEDS: metroNIDAZOLE 500 MG Tab PO ONE (13:46)
[2024-02-05] MEDS: Ciprofloxacin 500 MG Tab PO ONE (13:46)
== END 2024-02-05 15:55 ==
LOC: KA.ED 09:49
DX: K52.9 Noninfective gastroenteritis and colitis, unspecified (principal); I13.0 Hypertensive heart and chronic kidney disease with heart failure and stage 1 through stage 4 chronic kidney disease, or unspecified chronic kidney disease; I50.9 Heart failure, unspecified; N18.4 Chronic kidney disease, stage 4 (severe); I25.10 Atherosclerotic heart disease of native coronary artery without angina pectoris; I48.91 Unspecified atrial fibrillation; E78.00 Pure hypercholesterolemia, unspecified; I25.2 Old myocardial infarction; Z79.899 Other long term (current) drug therapy; Z79.01 Long term (current) use of anticoagulants; Z88.8 Allergy status to other drugs, medicaments and biological substances; Z91.048 Other nonmedicinal substance allergy status
CPT/HCPCS: 74177; 80053; 81001; 83605; 85025; 87040; 96365; 96366; 96375; 99284; 99285-25; A9270-GY; J3480; J3490; Q9967

== ENCOUNTER 2024-02-05 23:45 | Observation (INO) | payer MEDICARE, BC ==
[2024-02-05] MEDS ORDERED: Sodium Chloride 0.9% 10 ML Syringe FLUSH PRN (23:51)
[2024-02-06 00:12] LABS: BASOPHILS ABSOLUTE AUTO 0.03 10^3/uL (0.00-0.10); BASOPHILS PERCENT AUTO 0.2 % (0.0-1.0); EOSINOPHILS ABSOLUTE AUTO 0.01 10^3/uL (0.10-0.30); EOSINOPHILS PERCENT AUTO 0.1 % (1.0-3.0); HEMATOCRIT 24.1 % (40.0-52.0); HEMOGLOBIN 7.7 g/dL (13.0-17.0); IMMATURE GRAN PERCENT AUTO 0.7 % (0.0-5.0); LYMPHOCYTES ABSOLUTE AUTO 0.41 10^3/uL (1.00-4.00); MEAN CORPUSCULAR HEMOGLOBIN 34.2 pg (27.0-31.0); MEAN CORPUSCULAR VOLUME 107.1 fL (82.0-92.0); MEAN PLATELET VOLUME 9.4 fL (7.4-10.4); MONOCYTES ABSOLUTE AUTO 2.25 10^3/uL (0.10-0.80); MONOCYTES PERCENT AUTO 16.6 % (2.0-8.0); NEUTROPHILS ABSOLUTE AUTO 10.76 10^3/uL (2.50-7.00); NEUTROPHILS PERCENT AUTO 79.4 % (50.0-70.0); PLATELET COUNT,PLT 193 10^3/uL (150-400); RED BLOOD CELL COUNT 2.25 10^6/uL (4.50-6.00); WHITE BLOOD CELL COUNT,WBC 13.56 10^3/uL (5.00-10.00)
[2024-02-06] MEDS: NS with KCl 40mEq 1,000 ML IV SCH (00:33)
[2024-02-06 00:35] LABS: ALBUMIN 2.15 g/dL (3.40-5.00); ANION GAP 13.6 mmol/L (5-15); BILIRUBIN TOTAL 0.5 mg/dL (0.2-1.0); CALCIUM 8.8 mg/dL (8.7-10.3); CARBON DIOXIDE,CO2 26.3 mmol/L (21.0-32.0); CREATININE 1.81 mg/dL (0.51-1.17); EST CRCL DRUG DOSING (CG) 33.07 mL/min; LACTIC ACID 2.1 mmol/L (0.4-2.0); POTASSIUM,K 3.9 mmol/L (3.5-5.1); PROTEIN TOTAL,TP 6.4 g/dL (6.4-8.2)
[2024-02-06] MEDS: Sodium Chloride 0.9% 1,000 ML IV SCH ×2 (01:52→12:29)
[2024-02-06] MEDS ORDERED: oxyCODONE 5 MG Tab PO PRN (03:51)
[2024-02-06] MEDS ORDERED: Calcium Carbonate 500 MG Tab.Chew PO PRN (03:51)
[2024-02-06] MEDS ORDERED: Ondansetron 4 MG/2 ML SDV IV PRN (04:03)
[2024-02-06] MEDS ORDERED: Ondansetron 4 MG Tab.DIS PO PRN (04:03)
[2024-02-06] MEDS: metroNIDAZOLE 500 MG Tab PO SCH (05:31)
[2024-02-06] MEDS: Acetaminophen 325 MG Tab PO PRN (05:31)
[2024-02-06] MEDS: Loperamide 2 MG Cap PO PRN (06:17)
[2024-02-06] MEDS ORDERED: Non-Formulary Medication 1 Each (Calcium Carbonate/Vitamin D3 [Calcium 600 Mg-Vit D3 10mcg PO SCH (09:00)
[2024-02-06] MEDS: Sodium Chloride 0.9% 1,000 ML IV ONE (09:58)
[2024-02-06] MEDS: Bumetanide 1 MG Tab PO SCH (10:01)
[2024-02-06] MEDS: Ciprofloxacin 500 MG Tab PO SCH (10:02)
[2024-02-06] MEDS: Metoprolol Succinate 50 MG Tab.ER PO SCH (10:02)
[2024-02-06] MEDS: Amiodarone 200 MG Tab PO SCH (10:02)
[2024-02-06] MEDS: Apixaban 5 MG Tab PO SCH (10:12)
[2024-02-06] MEDS: Sodium Bicarbonate 650 MG Tab PO SCH (10:12)
[2024-02-06] MEDS: Multivitamins with Minerals/Iron/Folic Acid/Lycopene Tab PO SCH (10:12)
[2024-02-06] MEDS: risperiDONE 1 MG Tab PO SCH (10:12)
[2024-02-06] MEDS: Calcium Citrate/Vitamin D3 315 MG-250 Unit Tab PO SCH (10:12)
[2024-02-06] MEDS: Zinc Sulfate 220 MG Cap PO SCH (10:13)
[2024-02-06] MEDS: Piperacillin/Tazobactam 4.5 GM in Sodium Chloride 0.9% 100 ML IV ONE (10:22)
[2024-02-06 10:25] LABS: BASOPHILS ABSOLUTE AUTO 0.05 10^3/uL (0.00-0.10); BASOPHILS PERCENT AUTO 0.4 % (0.0-1.0); EOSINOPHILS ABSOLUTE AUTO 0.08 10^3/uL (0.10-0.30); EOSINOPHILS PERCENT AUTO 0.7 % (1.0-3.0); HEMATOCRIT 23.1 % (40.0-52.0); IMMATURE GRAN ABSOLUTE AUTO 0.07 10^3/uL (0.00-0.50); IMMATURE GRAN PERCENT AUTO 0.6 % (0.0-5.0); LYMPHOCYTES ABSOLUTE AUTO 0.43 10^3/uL (1.00-4.00); LYMPHOCYTES PERCENT AUTO 3.6 % (20.0-40.0); MEAN CORPUSCULAR HEMOGLOBIN 33.5 pg (27.0-31.0); MEAN CORPUSCULAR HGB CONC 31.2 g/dL (32.0-36.0); MEAN CORPUSCULAR VOLUME 107.4 fL (82.0-92.0); MEAN PLATELET VOLUME 9.4 fL (7.4-10.4); MONOCYTES ABSOLUTE AUTO 2.78 10^3/uL (0.10-0.80); MONOCYTES PERCENT AUTO 23.3 % (2.0-8.0); NEUTROPHILS ABSOLUTE AUTO 8.53 10^3/uL (2.50-7.00); NEUTROPHILS PERCENT AUTO 71.4 % (50.0-70.0); PLATELET COUNT,PLT 173 10^3/uL (150-400); RED BLOOD CELL COUNT 2.15 10^6/uL (4.50-6.00); WHITE BLOOD CELL COUNT,WBC 11.94 10^3/uL (5.00-10.00)
[2024-02-06] MEDS: VANCOmycin 1 GM/200 ML 1 GM in Premix Bag 1 BAG IV SCH (10:33)
[2024-02-06] MEDS: Midodrine 5 MG Tab PO SCH (10:36)
[2024-02-06 10:41] LABS: ALBUMIN 1.91 g/dL (3.40-5.00); ANION GAP 14.4 mmol/L (5-15); BILIRUBIN TOTAL 0.5 mg/dL (0.2-1.0); C-REACTIVE PROTEIN 17.23 mg/dL (0.00-0.50); CALCIUM 8.3 mg/dL (8.7-10.3); CARBON DIOXIDE,CO2 23.5 mmol/L (21.0-32.0); CREATININE 1.74 mg/dL (0.51-1.17); EST CRCL DRUG DOSING (CG) 34.06 mL/min; MAGNESIUM 1.4 mg/dL (1.8-2.4); POTASSIUM,K 3.9 mmol/L (3.5-5.1); PROTEIN TOTAL,TP 5.8 g/dL (6.4-8.2)
[2024-02-06 10:45] LABS: HEMOGLOBIN 7.2 g/dL (13.0-17.0)
[2024-02-06] MEDS: VANCOmycin 1.25 GM/250 ML 250 ML IV ONE (11:34)
[2024-02-06] MEDS: DARBEPOETIN ALFA SUBCUT ONE (12:22)
[2024-02-06] MEDS: Ascorbic Acid 500 MG Tab PO SCH (12:26)
[2024-02-06] MEDS: Ferrous Sulfate 325 MG Tab PO SCH (12:26)
[2024-02-06] MEDS: Potassium Chloride 10 MEQ Tab.ER PO ONE (12:26)
[2024-02-06] MEDS: Magnesium Sulfate/Water Premix 2 GM in Premix Bag 1 BAG IV ONE (12:26)
[2024-02-06] MEDS: Furosemide 40 MG/4 ML VIAL IVPUSH ONE (13:01)
[2024-02-06] MEDS: Piperacillin/Tazobactam 4.5 GM in Sodium Chloride 0.9% 100 ML IV SCH (14:43)
[2024-02-06 15:20] LABS: HEMATOCRIT 24.3 % (40.0-52.0)
[2024-02-06 15:23] LABS: HEMOGLOBIN 7.5 g/dL (13.0-17.0)
[2024-02-06] MEDS: Pravastatin 20 MG Tab PO SCH (21:33)
[2024-02-06] MEDS: DULoxetine 30 MG Cap PO SCH (21:34)
[2024-02-06] MEDS: Bumetanide 1 MG/4 ML MDV IVPUSH SCH (21:56)
[2024-02-07 06:58] LABS: BASOPHILS ABSOLUTE AUTO 0.04 10^3/uL (0.00-0.10); BASOPHILS PERCENT AUTO 0.6 % (0.0-1.0); EOSINOPHILS ABSOLUTE AUTO 0.25 10^3/uL (0.10-0.30); EOSINOPHILS PERCENT AUTO 3.9 % (1.0-3.0); HEMATOCRIT 22.5 % (40.0-52.0); IMMATURE GRAN ABSOLUTE AUTO 0.03 10^3/uL (0.00-0.50); IMMATURE GRAN PERCENT AUTO 0.5 % (0.0-5.0); LYMPHOCYTES ABSOLUTE AUTO 0.43 10^3/uL (1.00-4.00); LYMPHOCYTES PERCENT AUTO 6.6 % (20.0-40.0); MEAN CORPUSCULAR HEMOGLOBIN 33.6 pg (27.0-31.0); MEAN CORPUSCULAR HGB CONC 31.6 g/dL (32.0-36.0); MEAN CORPUSCULAR VOLUME 106.6 fL (82.0-92.0); MEAN PLATELET VOLUME 9.6 fL (7.4-10.4); MONOCYTES ABSOLUTE AUTO 1.15 10^3/uL (0.10-0.80); MONOCYTES PERCENT AUTO 17.7 % (2.0-8.0); NEUTROPHILS ABSOLUTE AUTO 4.59 10^3/uL (2.50-7.00); NEUTROPHILS PERCENT AUTO 70.7 % (50.0-70.0); PLATELET COUNT,PLT 171 10^3/uL (150-400); RED BLOOD CELL COUNT 2.11 10^6/uL (4.50-6.00); RED CELL DISTRIBUTION WIDTH 16.8 % (11.5-14.5); WHITE BLOOD CELL COUNT,WBC 6.49 10^3/uL (5.00-10.00)
[2024-02-07 07:16] LABS: ANION GAP 17.1 mmol/L (5-15); C-REACTIVE PROTEIN 15.94 mg/dL (0.00-0.50); CALCIUM 8.3 mg/dL (8.7-10.3); CARBON DIOXIDE,CO2 21.4 mmol/L (21.0-32.0); CREATININE 1.76 mg/dL (0.51-1.17); EST CRCL DRUG DOSING (CG) 33.67 mL/min; POTASSIUM,K 3.5 mmol/L (3.5-5.1)
[2024-02-07 07:29] LABS: HEMOGLOBIN 7.1 g/dL (13.0-17.0)
[2024-02-07] MEDS: Sodium Chloride 0.9% 50 ML IV SCH (10:27)
[2024-02-07] MEDS: VANCOmycin 750 MG/150 ML 750 MG in Premix Bag 1 BAG IV SCH (10:27)
[2024-02-07] MEDS ORDERED: Trolamine Salicylate/Aloe Vera 10% Crm 85 GM Tube TOP PRN (10:50)
[2024-02-07] MEDS: Furosemide 40 MG/4 ML VIAL IVPUSH ONE (11:32)
[2024-02-07] MEDS: Fluticasone NASAL Spray 16 GM Bottle NASBOTH SCH (11:34)
[2024-02-07] MEDS: Lactobacillus Rhamnosus GG (Probiotic) Cap PO SCH (11:35)
[2024-02-07] MEDS: traMADol 50 MG Tab PO PRN (20:22)
[2024-02-07] MEDS: Melatonin 3 MG Tab PO SCH (20:24)
[2024-02-08 07:30] LABS: BASOPHILS ABSOLUTE AUTO 0.04 10^3/uL (0.00-0.10); BASOPHILS PERCENT AUTO 0.8 % (0.0-1.0); EOSINOPHILS ABSOLUTE AUTO 0.27 10^3/uL (0.10-0.30); EOSINOPHILS PERCENT AUTO 5.6 % (1.0-3.0); HEMATOCRIT 23.7 % (40.0-52.0); HEMOGLOBIN 7.6 g/dL (13.0-17.0); IMMATURE GRAN ABSOLUTE AUTO 0.08 10^3/uL (0.00-0.50); IMMATURE GRAN PERCENT AUTO 1.6 % (0.0-5.0); LYMPHOCYTES ABSOLUTE AUTO 0.43 10^3/uL (1.00-4.00); LYMPHOCYTES PERCENT AUTO 8.8 % (20.0-40.0); MEAN CORPUSCULAR HEMOGLOBIN 33.3 pg (27.0-31.0); MEAN CORPUSCULAR HGB CONC 32.1 g/dL (32.0-36.0); MEAN CORPUSCULAR VOLUME 103.9 fL (82.0-92.0); MEAN PLATELET VOLUME 9.8 fL (7.4-10.4); MONOCYTES ABSOLUTE AUTO 1.16 10^3/uL (0.10-0.80); MONOCYTES PERCENT AUTO 23.9 % (2.0-8.0); NEUTROPHILS ABSOLUTE AUTO 2.88 10^3/uL (2.50-7.00); NEUTROPHILS PERCENT AUTO 59.3 % (50.0-70.0); PLATELET COUNT,PLT 217 10^3/uL (150-400); RED BLOOD CELL COUNT 2.28 10^6/uL (4.50-6.00); RED CELL DISTRIBUTION WIDTH 16.3 % (11.5-14.5); WHITE BLOOD CELL COUNT,WBC 4.86 10^3/uL (5.00-10.00)
[2024-02-08 07:42] LABS: ANION GAP 13.9 mmol/L (5-15); CALCIUM 8.5 mg/dL (8.7-10.3); CARBON DIOXIDE,CO2 24.3 mmol/L (21.0-32.0); CREATININE 1.72 mg/dL (0.51-1.17); EST CRCL DRUG DOSING (CG) 34.45 mL/min; MAGNESIUM 1.8 mg/dL (1.8-2.4); POTASSIUM,K 3.2 mmol/L (3.5-5.1); VANCOMYCIN RANDOM 15.8 ug/mL
[2024-02-08] MEDS: Magnesium Oxide 500 MG Tab PO ONE (09:56)
[2024-02-08] MEDS: Potassium Chloride 20 MEQ Tab.ER PO ONE (09:57)
[2024-02-08 11:15] VITALS: PULSE 75
[2024-02-08 15:04] VITALS: BP 142/63
== END 2024-02-08 13:35 ==
LOC: KA.ED 23:45 → KA.MS 02-06 02:05
PROVIDERS: ADMIT Family Medicine; ATTEND Family Medicine
DX: K52.9 Noninfective gastroenteritis and colitis, unspecified (principal); A41.9 Sepsis, unspecified organism; R53.1 Weakness; I73.9 Peripheral vascular disease, unspecified; R53.81 Other malaise; R26.2 Difficulty in walking, not elsewhere classified; R79.89 Other specified abnormal findings of blood chemistry; M47.27 Other spondylosis with radiculopathy, lumbosacral region; M53.3 Sacrococcygeal disorders, not elsewhere classified; G89.4 Chronic pain syndrome; E86.0 Dehydration; E87.6 Hypokalemia; I13.0 Hypertensive heart and chronic kidney disease with heart failure and stage 1 through stage 4 chronic kidney disease, or unspecified chronic kidney disease; N18.32 Chronic kidney disease, stage 3b; D63.1 Anemia in chronic kidney disease; I50.9 Heart failure, unspecified; G47.33 Obstructive sleep apnea (adult) (pediatric); I25.10 Atherosclerotic heart disease of native coronary artery without angina pectoris; L97.501 Non-pressure chronic ulcer of other part of unspecified foot limited to breakdown of skin; Z95.1 Presence of aortocoronary bypass graft; Z79.899 Other long term (current) drug therapy; Z88.8 Allergy status to other drugs, medicaments and biological substances; Z79.01 Long term (current) use of anticoagulants
CPT/HCPCS: 36415; 51798; 71045; 80048; 80053; 80202; 82150; 83605; 83690; 83735; 83880; 84145; 84484; 85014; 85018; 85025; 86140; 87040; 93005; 93010; 96365; 96366; 96367; 96375; 96376; 99284; 99285-25; A9270-GY; G0378; J0881; J1940; J2543; J3372; J3475; J3480; J3490; J7030; Q3014

== ENCOUNTER 2024-03-27 12:35 | Emergency (ER) | payer MEDICARE, BC ==
[2024-03-27 13:32] LABS: ALANINE AMINOTRANSFERASE,ALT 20 U/L (14-63); ALBUMIN 3.02 g/dL (3.40-5.00); ALKALINE PHOSPHATASE 86 U/L (46-116); ANION GAP 14.3 mmol/L (5-15); ASPARTATE AMNIOTRANSFERASE,AST 29 U/L (15-37); BILIRUBIN TOTAL 0.4 mg/dL (0.2-1.0); BLOOD UREA NITROGEN,BUN 25 mg/dL (7-18); CARBON DIOXIDE,CO2 25.6 mmol/L (21.0-32.0); CHLORIDE,CL 97 mmol/L (98-107); CREATININE 1.85 mg/dL (0.51-1.17); ESTIMATED GFR 37 mL/min (>=60); GLUCOSE RANDOM 128 mg/dL (70-140); POTASSIUM,K 3.9 mmol/L (3.5-5.1); PROTEIN TOTAL,TP 7.3 g/dL (6.4-8.2); SODIUM,NA 133 mmol/L (136-145)
[2024-03-27 13:33] LABS: HEMATOCRIT 29.2 % (40.0-52.0); HEMOGLOBIN 9.5 g/dL (13.0-17.0); MEAN CORPUSCULAR HEMOGLOBIN 33.6 pg (27.0-31.0); MEAN CORPUSCULAR HGB CONC 32.5 g/dL (32.0-36.0); MEAN CORPUSCULAR VOLUME 103.2 fL (82.0-92.0); PLATELET COUNT,PLT 204 10^3/uL (150-400); RED BLOOD CELL COUNT 2.83 10^6/uL (4.50-6.00); RED CELL DISTRIBUTION WIDTH 15.3 % (11.5-14.5); WHITE BLOOD CELL COUNT,WBC 4.73 10^3/uL (5.00-10.00)
[2024-03-27 13:50] LABS: EOSINOPHILS ABSOLUTE MAN 0.0473; EOSINOPHILS PERCENT MAN 1 % (1-3); LYMPHOCYTES ABSOLUTE MAN 0.4257; LYMPHOCYTES PERCENT MAN 9 % (20-40); MONOCYTES ABSOLUTE MAN 0.8987; MONOCYTES PERCENT MAN 19 % (2-8); NEUTROPHILS ABSOLUTE MAN 3.3583; SEG NEUTROPHILS PERCENT MAN 71 % (50-70)
[2024-03-27] MEDS: oxyCODONE 5 MG Tab PO ONE (15:10)
[2024-03-27] MEDS: Acetaminophen/oxyCODONE 325-5 MG Tab PO ONE (15:11)
[2024-03-27 15:12] LABS: APPEARANCE,URINE CLEAR (CLEAR); BILIRUBIN,URINE NEGATIVE (NEGATIVE); COLOR,URINE YELLOW (YELLOW); GLUCOSE,URINE NEGATIVE (NEGATIVE); KETONES,URINE NEGATIVE (NEGATIVE); LEUKOCYTE ESTERASE,URINE NEGATIVE (NEGATIVE); NITRITE,URINE NEGATIVE (NEGATIVE); OCCULT BLOOD,URINE NEGATIVE (NEGATIVE); PROTEIN,URINE NEGATIVE (NEGATIVE); UROBILINOGEN,URINE 0.2 E.U./dL (0.2-1.0)
[2024-03-27 15:18] LABS: BACTERIA,URINE RARE /HPF (NONE TO FEW); EPITHELIAL CELLS,URINE RARE /LPF; RBC,URINE 0-5 /HPF (0-5); WBC,URINE 0-5 /HPF (0-5)
[2024-03-27 17:29] VITALS: BP 119/55; PULSE 95
== END 2024-03-27 16:35 ==
LOC: KA.ED 12:35
DX: U07.1 COVID-19 (principal); R91.8 Other nonspecific abnormal finding of lung field; I25.10 Atherosclerotic heart disease of native coronary artery without angina pectoris; I48.91 Unspecified atrial fibrillation; I25.2 Old myocardial infarction; I13.0 Hypertensive heart and chronic kidney disease with heart failure and stage 1 through stage 4 chronic kidney disease, or unspecified chronic kidney disease; I50.9 Heart failure, unspecified; N18.4 Chronic kidney disease, stage 4 (severe); E78.00 Pure hypercholesterolemia, unspecified; J44.9 Chronic obstructive pulmonary disease, unspecified; Z86.16 Personal history of COVID-19; Z95.5 Presence of coronary angioplasty implant and graft; Z88.8 Allergy status to other drugs, medicaments and biological substances; Z91.018 Allergy to other foods; Z79.01 Long term (current) use of anticoagulants; Z79.899 Other long term (current) drug therapy
CPT/HCPCS: 36415; 71045; 80053; 81001; 83605; 85025; 99285; A9270-GY

== ENCOUNTER 2024-08-01 11:02 | Emergency (ER) | payer MEDICARE, BC ==
[2024-08-01 13:57] VITALS: BP 139/60; PULSE 80
== END 2024-08-01 13:25 ==
LOC: KA.ED 11:02
DX: M25.551 Pain in right hip (principal); I48.91 Unspecified atrial fibrillation; I25.10 Atherosclerotic heart disease of native coronary artery without angina pectoris; I13.0 Hypertensive heart and chronic kidney disease with heart failure and stage 1 through stage 4 chronic kidney disease, or unspecified chronic kidney disease; I50.9 Heart failure, unspecified; N18.4 Chronic kidney disease, stage 4 (severe); E78.00 Pure hypercholesterolemia, unspecified; J44.9 Chronic obstructive pulmonary disease, unspecified; M19.90 Unspecified osteoarthritis, unspecified site; Z95.5 Presence of coronary angioplasty implant and graft; Z96.643 Presence of artificial hip joint, bilateral; Z88.8 Allergy status to other drugs, medicaments and biological substances; Z91.018 Allergy to other foods; Z79.01 Long term (current) use of anticoagulants; Z79.51 Long term (current) use of inhaled steroids; Z79.82 Long term (current) use of aspirin; Z79.899 Other long term (current) drug therapy; W06.XXXA Fall from bed, initial encounter
CPT/HCPCS: 99283

== ENCOUNTER 2024-11-08 20:41 | Emergency (ER) | payer MEDICARE, BC ==
[2024-11-08] MEDS: Sodium Chloride 0.9% 10 ML Syringe FLUSH PRN (21:08)
[2024-11-08 21:24] LABS: BASOPHILS ABSOLUTE AUTO 0.04 10^3/uL (0.00-0.10); BASOPHILS PERCENT AUTO 0.6 % (0.0-1.0); EOSINOPHILS ABSOLUTE AUTO 0.16 10^3/uL (0.10-0.30); EOSINOPHILS PERCENT AUTO 2.2 % (1.0-3.0); IMMATURE GRAN ABSOLUTE AUTO 0.75 10^3/uL (0.00-0.04); IMMATURE GRAN PERCENT AUTO 10.5 % (0.0-0.4); LYMPHOCYTES ABSOLUTE AUTO 0.58 10^3/uL (1.00-4.00); LYMPHOCYTES PERCENT AUTO 8.1 % (20.0-40.0); MEAN PLATELET VOLUME 9.4 fL (7.4-10.4); MONOCYTES ABSOLUTE AUTO 1.55 10^3/uL (0.10-0.80); MONOCYTES PERCENT AUTO 21.7 % (2.0-8.0); NEUTROPHILS ABSOLUTE AUTO 4.07 10^3/uL (2.50-7.00); PLATELET COUNT,PLT 278 10^3/uL (150-400); RED BLOOD CELL COUNT 2.73 10^6/uL (4.50-6.00); RED CELL DISTRIBUTION WIDTH 15.9 % (11.5-14.5); WHITE BLOOD CELL COUNT,WBC 7.15 10^3/uL (5.00-10.00)
[2024-11-08 21:41] LABS: ALANINE AMINOTRANSFERASE,ALT 32.0 U/L (14-63); ASPARTATE AMNIOTRANSFERASE,AST 32.0 U/L (15-37); BILIRUBIN TOTAL 0.4 mg/dL (0.2-1.0); BLOOD UREA NITROGEN,BUN 41.0 mg/dL (7-18); CARBON DIOXIDE,CO2 26.1 mmol/L (21.0-32.0); CHLORIDE,CL 101.0 mmol/L (98-107); CREATININE 1.62 mg/dL (0.51-1.17); EST CRCL DRUG DOSING (CG) 35.75 mL/min; GLUCOSE RANDOM 145.0 mg/dL (70-140); POTASSIUM,K 4.1 mmol/L (3.5-5.1); PROTEIN TOTAL,TP 6.8 g/dL (6.4-8.2); SODIUM,NA 138.0 mmol/L (136-145)
[2024-11-08 21:42] LABS: ESTIMATED GFR 43.0 mL/min (>=60)
[2024-11-08 22:03] LABS: NEUTROPHILS PERCENT AUTO 56.9 % (50.0-70.0)
[2024-11-09 03:33] VITALS: BP 114/44; PULSE 76
== END 2024-11-08 22:51 ==
LOC: KA.ED 20:46
DX: L03.115 Cellulitis of right lower limb (principal); R23.8 Other skin changes; Z89.511 Acquired absence of right leg below knee
CPT/HCPCS: 80053; 83605; 85025; 96361; 96374; 99284; 99284-25; J0696; J7030

== ENCOUNTER 2024-11-14 13:33 | Emergency (ER) | payer MEDICARE, BC ==
[2024-11-14 13:56] LABS: BASOPHILS ABSOLUTE AUTO 0.06 10^3/uL (0.00-0.10); BASOPHILS PERCENT AUTO 0.8 % (0.0-1.0); EOSINOPHILS ABSOLUTE AUTO 0.11 10^3/uL (0.10-0.30); EOSINOPHILS PERCENT AUTO 1.4 % (1.0-3.0); IMMATURE GRAN ABSOLUTE AUTO 0.41 10^3/uL (0.00-0.04); IMMATURE GRAN PERCENT AUTO 5.4 % (0.0-0.4); LYMPHOCYTES ABSOLUTE AUTO 0.42 10^3/uL (1.00-4.00); LYMPHOCYTES PERCENT AUTO 5.5 % (20.0-40.0); MEAN PLATELET VOLUME 8.7 fL (7.4-10.4); MONOCYTES ABSOLUTE AUTO 1.46 10^3/uL (0.10-0.80); MONOCYTES PERCENT AUTO 19.1 % (2.0-8.0); NEUTROPHILS ABSOLUTE AUTO 5.18 10^3/uL (2.50-7.00); NEUTROPHILS PERCENT AUTO 67.8 % (50.0-70.0); PLATELET COUNT,PLT 360 10^3/uL (150-400); RED BLOOD CELL COUNT 2.80 10^6/uL (4.50-6.00); RED CELL DISTRIBUTION WIDTH 15.8 % (11.5-14.5); WHITE BLOOD CELL COUNT,WBC 7.64 10^3/uL (5.00-10.00)
[2024-11-14 14:23] LABS: ALANINE AMINOTRANSFERASE,ALT 23.0 U/L (14-63); ASPARTATE AMNIOTRANSFERASE,AST 23.0 U/L (15-37); BILIRUBIN TOTAL 0.3 mg/dL (0.2-1.0); BLOOD UREA NITROGEN,BUN 25.0 mg/dL (7-18); CARBON DIOXIDE,CO2 26.9 mmol/L (21.0-32.0); CHLORIDE,CL 98.0 mmol/L (98-107); CREATININE 1.6 mg/dL (0.51-1.17); EST CRCL DRUG DOSING (CG) 35.95 mL/min; GLUCOSE RANDOM 169.0 mg/dL (70-140); POTASSIUM,K 3.9 mmol/L (3.5-5.1); PROTEIN TOTAL,TP 7.4 g/dL (6.4-8.2); SODIUM,NA 137.0 mmol/L (136-145)
[2024-11-14 14:26] LABS: ESTIMATED GFR 44.0 mL/min (>=60)
[2024-11-15 07:09] VITALS: BP 135/48; PULSE 58
== END 2024-11-14 17:40 ==
LOC: KA.ED 13:33
DX: I73.9 Peripheral vascular disease, unspecified (principal); I48.91 Unspecified atrial fibrillation; I25.10 Atherosclerotic heart disease of native coronary artery without angina pectoris; I13.0 Hypertensive heart and chronic kidney disease with heart failure and stage 1 through stage 4 chronic kidney disease, or unspecified chronic kidney disease; N18.4 Chronic kidney disease, stage 4 (severe); I50.9 Heart failure, unspecified; E78.00 Pure hypercholesterolemia, unspecified; Z91.018 Allergy to other foods; Z79.899 Other long term (current) drug therapy; Z79.01 Long term (current) use of anticoagulants; Z79.51 Long term (current) use of inhaled steroids; Z79.82 Long term (current) use of aspirin
CPT/HCPCS: 80053; 83605; 85025; 96374; 99283; 99284; J2270

== ENCOUNTER 2024-12-03 04:43 | Emergency (ER) | payer MEDICARE, BC ==
[2024-12-03] MEDS: Sodium Chloride 0.9% 10 ML Syringe FLUSH PRN (05:11)
[2024-12-03 05:29] LABS: MEAN PLATELET VOLUME 9.0 fL (7.4-10.4); PLATELET COUNT,PLT 391 10^3/uL (150-400); RED BLOOD CELL COUNT 3.06 10^6/uL (4.50-6.00); RED CELL DISTRIBUTION WIDTH 15.9 % (11.5-14.5); WHITE BLOOD CELL COUNT,WBC 11.37 10^3/uL (5.00-10.00)
[2024-12-03 05:49] LABS: ALANINE AMINOTRANSFERASE,ALT 18 U/L (14-63); ASPARTATE AMNIOTRANSFERASE,AST 22 U/L (15-37); BILIRUBIN TOTAL 0.6 mg/dL (0.2-1.0); BLOOD UREA NITROGEN,BUN 22 mg/dL (7-18); CARBON DIOXIDE,CO2 23.0 mmol/L (21.0-32.0); CHLORIDE,CL 103 mmol/L (98-107); CREATININE 1.29 mg/dL (0.51-1.17); GLUCOSE RANDOM 185 mg/dL (70-140); POTASSIUM,K 4.6 mmol/L (3.5-5.1); PROTEIN TOTAL,TP 6.2 g/dL (6.4-8.2); SODIUM,NA 138 mmol/L (136-145)
[2024-12-03 05:50] LABS: B-TYPE NATRIURETIC PEPTIDE,BNP 3620 pg/mL (0-100)
[2024-12-03 05:51] LABS: ESTIMATED GFR 57 mL/min (>=60)
[2024-12-03 06:18] LABS: BASOPHILS PERCENT MAN 0 % (0-1); EOSINOPHILS PERCENT MAN 0 % (1-3); LYMPHOCYTES PERCENT MAN 4 % (20-40); MONOCYTES PERCENT MAN 10 % (2-8); SEG NEUTROPHILS PERCENT MAN 76 % (50-70)
[2024-12-03 06:19] LABS: PLATELET COUNT ESTIMATE ADEQUATE
[2024-12-03] MEDS: Furosemide 40 MG/4 ML VIAL IVPUSH ONE (06:37)
[2024-12-03 07:21] LABS: PH ARTERIAL,POC 7.48 pH (7.35-7.45)
[2024-12-03 07:22] LABS: BASE EXCESS ARTERIAL,POC -2 mmol/L ((-2)-3); HCO3 ARTERIAL,POC 21.4 mmol/L (21-28); O2 SATURATION ARTERIAL,POC 98.8 % (94-98); PCO2 ARTERIAL,POC 29 mmHg (35-48); PO2 ARTERIAL,POC 111 mmHg (83-108); TCO2 ARTERIAL,POC 20 mmol/L (22-29)
[2024-12-03 07:59] VITALS: BP 95/48; PULSE 89
== END 2024-12-03 08:02 ==
LOC: KA.ED 04:43
DX: R79.89 Other specified abnormal findings of blood chemistry (principal); N18.30 Chronic kidney disease, stage 3 unspecified; I25.2 Old myocardial infarction; Z88.8 Allergy status to other drugs, medicaments and biological substances
CPT/HCPCS: 36415; 36600; 51702; 71045; 80053; 82803; 83605; 83880; 84484; 85025; 87040; 96374; 99285; J1938